=== PATIENT | female | born 1945 | race Caucasian/White ===

== ENCOUNTER 2021-03-28 17:55 | Inpatient (IN) | payer MEDICARE ==
[~2021-03-28] VITALS: Ht 165.1 cm; Wt 75.6 kg
--- NOTE | 2021-03-28 18:20 | NUR ---
Admission Note with Justification for Admission to [facility] Patient admitted to [facility] for protective oversight for emergency stabilization of acute psychiatric crisis. Pt admitted from: SNF Mode of arrival: Secure Transport Accompanied By: Secure Transport Precipitating behaviors that initiated intake and admission: verbally aggressive towards staff and is physically aggressive during cares and agitated. Description of failure of out patient attempts at stabilization in previous setting list behavior and medication trials: buspar; increased seroquel; more family visits; recent tx of UTI; care plan meetings Behaviors and assessment findings upon admission: pt presented as agitated. pt presented with a demanding demeanor; pt oriented to self and was sarcastic with some responses to staff. pt has an indwelling beckford catheter and states that she has had it for two years due to urine retention and was placed as a solution. a box lunch was ordered for pt and was given a cup of diet coke upon request. will continue to monitor. Plan: Admit for protective oversight for adjustment and stabilization of medications, behaviors and mood. Intense treatment regimen including groups, medication adjustments, therapy, consistent regimen for ADL's, self care, and sleep hygiene. Daily monitoring by Inpatient staff, Psychiatry, and Medical Physician.
[2021-03-28 19:24] VITALS: BP 136/68
[2021-03-28] MEDS ORDERED: METHYL SALICYLATE/MENTHOL TOPICAL OINTMENT 57GM TUBE. TP PRN (19:30)
[2021-03-28] MEDS ORDERED: MAGNESIUM HYDROXIDE 2,400 MG/30 ML ORAL.SUSP. PO PRN (19:30)
[2021-03-28] MEDS ORDERED: MAG HYDROX/AL HYDROX/SIMETH 30 ML ORAL.SUSP PO PRN (19:30)
[2021-03-28] MEDS ORDERED: DIVA125T28 PO (19:32)
[2021-03-28] MEDS ORDERED: QUET50TA5 PO (19:32)
[2021-03-28] MEDS ORDERED: INSU100I13 SQ (19:32)
[2021-03-28] MEDS ORDERED: OMEP20CA16 PO (19:32)
[2021-03-28] MEDS ORDERED: LORA0.5T21 PO (19:32)
[2021-03-28] MEDS ORDERED: QUET25TA5 PO (19:32)
[2021-03-28] MEDS ORDERED: ALEN70TA71 PO (19:32)
[2021-03-28] MEDS ORDERED: ATOR40TA59 PO (19:32)
[2021-03-28] MEDS ORDERED: ASCO500C PO (19:32)
[2021-03-28] MEDS ORDERED: LEVO125C3 PO (19:32)
[2021-03-28] MEDS ORDERED: SAXA5TAB PO (19:32)
[2021-03-28] MEDS ORDERED: BISM262O20 PO (19:32)
[2021-03-28] MEDS ORDERED: ACET325T21 PO (19:32)
[2021-03-28] MEDS ORDERED: BUSP10TA PO ×2 (19:32)
[2021-03-28] MEDS ORDERED: LACT1CAP2 PO (19:32)
[2021-03-28] MEDS ORDERED: GLIM2TAB7 PO (19:32)
[2021-03-28] MEDS ORDERED: MULT-238 PO (19:32)
[2021-03-28] MEDS ORDERED: AMLO10TA4 PO (19:32)
[2021-03-28] MEDS ORDERED: GLIM1TAB7 PO (19:32)
[2021-03-28] MEDS ORDERED: CARV12.547 PO (19:32)
[2021-03-28] MEDS ORDERED: LISI20TA18 PO (19:32)
[2021-03-28] MEDS ORDERED: BISMUTH SUBSALICYLATE 262 MG/15 ML ORAL.SUSP 236ML BOTTLE. PO PRN (20:00)
[2021-03-28 20:26] LABS: BASO # 0.1 x10^3/uL (0.0-0.2); BASO % 1 % (0-3); EOS # 0.6 x10^3/uL (0.0-0.7); EOS % 10 % (0-3); HEMOGLOBIN 10.7 g/dL (12.0-15.5); LYMPH # 0.7 x10^3/uL (1.0-4.8); LYMPH % 12 % (24-48); MEAN CORPUSCULAR HEMOGLOBIN 32 pg (25-35); MEAN CORPUSCULAR HGB CONC 34 g/dL (31-37); MEAN CORPUSCULAR VOLUME 96 fL (79-100); MONO # 0.5 x10^3/uL (0.0-1.1); MONO % 9 % (0-9); NEUT # 3.9 x10^3uL (1.8-7.7); NEUT % 68 % (31-73); PLATELET COUNT 209 x10^3/uL (140-400); RED BLOOD COUNT 3.34 x10^6/uL (3.50-5.40); RED CELL DISTRIBUTION WIDTH 13.8 % (11.5-14.5); WHITE BLOOD COUNT 5.7 x10^3/uL (4.0-11.0)
[2021-03-28 20:45] LABS: ALBUMIN 3.6 g/dL (3.4-5.0); ALBUMIN/GLOBULIN RATIO 0.9 (1.0-1.7); ALK PHOS 73 U/L (46-116); ALT (SGPT) 39 U/L (14-59); ANION GAP 10 (6-14); AST (SGOT) 25 U/L (15-37); BLOOD UREA NITROGEN 35 mg/dL (7-20); BUN/CREATININE RATIO 27 (6-20); CALCIUM 8.5 mg/dL (8.5-10.1); CARBON DIOXIDE 22 mmol/L (21-32); CHLORIDE 104 mmol/L (98-107); CREATININE 1.3 mg/dL (0.6-1.0); GFR 39.7; GLUCOSE 214 mg/dL (70-99); MAGNESIUM 2.7 mg/dL (1.8-2.4); POTASSIUM 4.9 mmol/L (3.5-5.1); SODIUM 136 mmol/L (136-145); TOTAL BILIRUBIN 0.3 mg/dL (0.2-1.0); TOTAL PROTEIN 7.4 g/dL (6.4-8.2)
[2021-03-28 20:51] LABS: VAL ACID 5 mcg/mL (50-100)
[2021-03-28] MEDS: LACTOBACILLUS RHAMNOSUS GG 1 CAPSULE. PO SCH (20:52)
[2021-03-28] MEDS: busPIRone 10 MG TABLET. PO SCH (20:53)
[2021-03-28] MEDS: ATORVASTATIN CALCIUM 20 MG TABLET PO SCH (20:53)
[2021-03-28] MEDS: LORazepam 0.5 MG TABLET PO SCH (20:53)
[2021-03-28] MEDS ORDERED: GLIMEPIRIDE 1 MG PO SCH (21:00)
[2021-03-28] MEDS: ACETAMINOPHEN 325 MG TABLET PO PRN (21:10)
[2021-03-28] MEDS ORDERED: INSU100C4 SQ (23:14)
[2021-03-28] MEDS ORDERED: DEXTROSE 50% 25 GM / 50ML DISP.SYRIN. IV PRN (23:15)
[2021-03-28 23:25] LABS: BILIRUBIN,URINE NEG (NEG); CLARITY,URINE HAZY; COLOR,URINE YELLOW; GLUCOSE,URINE 100 mg/dL (NEG); NITRITE,URINE NEG (NEG); UROBILINOGEN,URINE 0.2 mg/dL (0.2 mg/dL)
[2021-03-28 23:26] LABS: BACTERIA,URINE FEW /HPF (0-FEW)
--- NOTE | 2021-03-28 23:36 | NUR ---
Pt withdrawn to her room, sitting up in her w/c when approached. Pt irritable, snarky, and sarcastic with her responses to assessment questions. Pt resistive with skin assessment, questioning staff as to why it needed to be done, stating "I've never had to have this done before". Pt also delusional, she believes that she is here to better manage her diabetes and her diet. Pt appears to have little respect for nurses, resistive with my questions and then answering with sarcasm and a condescending tone. She then stated, "I have a long list of nurses that I would like to kick in the ass". Pt also became offended when I asked when her last bowel movement was, stating "I think that is just the rudest question to ask somebody. I hate that question". I explained to her the reasoning for asking the question but she was not receptive to education. Pt cooperative with assessment although she complained the entire time. Pt compliant with medications administered whole but insisted that I put them in her mouth for her while she held the cup of water. Later, when she requested PRN Tylenol for pain in her Right 5th toe amputation site, she insisted that I put the pills in her hand.
--- NOTE | 2021-03-29 04:35 | EKG ---
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
[2021-03-29] MEDS: LEVOTHYROXINE 125 MCG TABLET PO SCH (05:51)
[2021-03-29 06:11] VITALS: BP 133/76
[2021-03-29] MEDS ORDERED: INSULIN LISPRO 300 UNITS/3 ML VIAL. SQ SCH (08:00)
[2021-03-29] MEDS: QUEtiapine 50 MG TABLET. PO SCH (08:26)
[2021-03-29] MEDS: QUEtiapine 25 MG TABLET. PO SCH (08:26)
[2021-03-29] MEDS: LACTOBACILLUS RHAMNOSUS GG 1 CAPSULE. PO SCH ×2 (08:27→21:00)
[2021-03-29] MEDS: LINAGLIPTIN 5 MG TABLET PO SCH (08:27)
[2021-03-29] MEDS: ASCORBIC ACID 500 MG TABLET PO SCH (08:27)
[2021-03-29] MEDS: LORazepam 0.5 MG TABLET PO SCH ×2 (08:27→21:01)
[2021-03-29] MEDS: LISINOPRIL 20 MG TABLET PO SCH (08:27)
[2021-03-29] MEDS: DIVALPROEX SODIUM 125 MG TABLET.DR. PO SCH (08:27)
[2021-03-29] MEDS: amLODIPine BESYLATE 10 MG TABLET PO SCH (08:27)
[2021-03-29] MEDS: MULTIVITAMIN with MINERAL TABLET. PO SCH (08:27)
[2021-03-29] MEDS: busPIRone 10 MG TABLET. PO SCH (08:27)
[2021-03-29] MEDS: GLIMEPIRIDE 2 MG TABLET PO SCH ×2 (08:28→17:00)
[2021-03-29] MEDS: PANTOPRAZOLE 40 MG TABLET. PO SCH (08:29)
[2021-03-29] MEDS: CARVEDILOL 12.5 MG TABLET PO SCH ×2 (08:29→17:00)
[2021-03-29] MEDS: INSULIN LISPRO 300 UNITS/3 ML VIAL. SQ SCH ×2 (08:45→17:00)
[2021-03-29] MEDS: INSULIN GLARGINE SYRINGE. SQ SCH (08:46)
--- NOTE | 2021-03-29 12:45 | NUR ---
ACTIVITY THERAPY ASSESSMENT completed based on notes,observation and interview. Pt was sitting in her room in her wheelchair. Pt was willing to answer assessment questions. AT educated pt about activities offered on [facility] and asked her what kind of activities she enjoys. Pt said that her eye sight is bad so she does not engage in anything. AT asked if she enjoyed listening to music and she didn't respond with a clear answer. Pt asked if she was seeing things or if there was rack on the wall. AT said that there was no rack on the wall and pt then called herself crazy. Pt was able to answer most orientation questions but did not know the hospital name. Pt said that she thought she was coming here to learn about her diabetes but said she was informed it was about her attitude. Pt proceeded to say that some of the residents are a bit catty. Pt said that she was for 49 years until her which she said was 35 years ago. Pt reports that she has one daughter and one son that she is in good contact with. Pt said that she enjoys sitting on the patio and socializing with her family. AT asked pt if she reports and stress and she is stressed because she is here. Pt said that she does not have anything here. Pt mentioned watching movies so AT offered a pina for pt to watch movie on. Pt questioned the screen size the movie would be playing on and expressed some irritation. Pt listed a few movies for AT to look for. Pt says that she cameron with stress by telling herself not to be stressed. Per notes pt can be demanding and condescending towards staff. Initial goal aimed to increase socialization and enagagement. Pt will participate in at least five individual or group Activity Therapy sessions per week. Addendum: 04/11/21 at 1124 by ROBERTA GENAO ACT Goal changed 04/11:Pt will participate in at least five individual or group Activity Therapy sessions before discharge.
[2021-03-29] MEDS: ACETAMINOPHEN 325 MG TABLET PO PRN (14:30)
[2021-03-29 15:39] LABS: THYROID STIM HORMONE (TSH) 0.069 uIU/mL (0.358-3.740)
[2021-03-29 15:53] VITALS: BP 138/89
--- NOTE | 2021-03-29 16:30 | NUR ---
Wound Care Wound Type/Assessment: Pt seen for wound care consult re: her R 5th toe amputation site. Pt assessed, pt hesitant to allow assessment, stating she did not have a wound. 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 Wound bed is red, superficial, no redness or fluctuance noted. Treatment Recommendations/Plan: Recommend painting eschar with betadine and placing Iodoflex mahogany over blister, and covering areas with an Aquacel foam, change every 2-3 days. Also recommend Heelmedix boot for off-loading. Education provided: POC discussed with RADHA Martinez. Offloading surface/device: Heelmedix boot to offload, as pt scoots in her w/c. Recommended Referrals/Tests: n/a Discharge Recommendations for dressings: same as treatment plan above *Pt declined to allow this RN to complete head to toe skin assessment, asking me to get out of her room. Will attempt again at next assessment, next week.
--- NOTE | 2021-03-29 17:29 | NUR ---
[facility] [place] Note; Luisito in particular about her cares and meals. She refused to eat most of her breakfast, stating that she is diabetic and doesn't eat toast, hashbrowns oatmeal or juice and does not like sausage or eggs. She did eat her yogurt and enjoyed lunch. We needed to encourage her to propel herself in her wheelchair which she resisted stating her facility pushes her everywhere. I gave her the med cup and asked her to take her am meds. She wanted me to place them in her mouth then give her sips of water. I explained that we encourage patients to do as much as they can. I had to repeatedly encourage her to take her meds herself after which she huffed then took them herself. I praised her. She likes to go to back to bed between meals saying she is tired. We kept her up for several hours after lunch to improve her strength then laid her down for a nap. We attempted to get her up for dinner during which she became very sarcastic and dismissive stating she will eat later. I told her that the meal trays will be sent back to the kitchen and not kept for her for later but she continued to refuse to get up. She was rude and dismissive to the POLICY WRITER when she went in to empty her beckford cath Addendum: 03/29/21 at 1747 by KAMRYN GALVAN RN She also refused to take her meds due at 1700 stating her blood pressure is fine and that she doesn't need her diabetes medications because she is not going to eat dinner.
[2021-03-29] MEDS: ATORVASTATIN CALCIUM 20 MG TABLET PO SCH (21:01)
[2021-03-29 21:06] LABS: THYROXINE 8.9 ug/dL (4.5-12.0)
--- NOTE | 2021-03-29 22:02 | PDOC ---
Exam Note: Hayden Note: Please also refer to the separate dictated note~for this date of service dictated separately.~Patient seen individually. Discussed the patient with Nursing staff reviewed the chart.~Reviewed interim history and current functioning. Reviewed vital signs,~Labs/ Radiology~and current medications noted below. Continue current treatment with the changes noted in the dictated addendum note Assessment: Vital Signs/I&O: Vital Signs Date Time Temp Pulse Resp B/P (MAP) Pulse Ox O2 Delivery O2 Flow Rate FiO2 03/29/21 17:00 61 138/89 03/29/21 15:53 97.3 19 99 03/28/21 19:24 Room Air I & O 03/28/21 03/28/21 03/29/21 15:00 23:00 07:00 Intake Total 300 ml Output Total 300 ml Balance 0 ml Labs: Laboratory Tests Test 03/28/21 22:23 03/29/21 07:29 03/29/21 11:44 03/29/21 16:54 Urine Collection Type Unknown Urine Color Yellow Urine Clarity Hazy Urine pH 6.0 Urine Specific [place] 1.020 Urine Protein 100 mg/dl (NEG-TRACE) Urine Glucose (UA) 100 mg/dL (NEG) Urine Ketones (Stick) Neg mg/dL (NEG) Urine Blood Trace (NEG) Urine Nitrite Neg (NEG) Urine Bilirubin Neg (NEG) Urine Urobilinogen Dipstick 0.2 mg/dL (0.2 mg/dL) Urine Leukocyte Esterase Small (NEG) Urine RBC 1-2 /HPF (0-2) Urine WBC 11-20 /HPF (0-4) Urine Squamous Epithelial Cells None /LPF Urine Bacteria Few /HPF (0-FEW) Glucose (Fingerstick) 164 mg/dL (70-99) H 116 mg/dL (70-99) H 121 mg/dL (70-99) H Test 03/29/21 19:28 Glucose (Fingerstick) 95 mg/dL (70-99) Current Medications: Meds: Laboratory Tests Test 03/28/21 22:23 03/29/21 07:29 03/29/21 11:44 03/29/21 16:54 Urine Collection Type Unknown Urine Color Yellow Urine Clarity Hazy Urine pH 6.0 Urine Specific [place] 1.020 Urine Protein 100 mg/dl Urine Glucose (UA) 100 mg/dL Urine Ketones (Stick) Neg mg/dL Urine Blood Trace Urine Nitrite Neg Urine Bilirubin Neg Urine Urobilinogen Dipstick 0.2 mg/dL Urine Leukocyte Esterase Small Urine RBC 1-2 /HPF Urine WBC 11-20 /HPF Urine Squamous Epithelial Cells None /LPF Urine Bacteria Few /HPF Glucose (Fingerstick) 164 mg/dL 116 mg/dL 121 mg/dL Test 03/29/21 19:28 Glucose (Fingerstick) 95 mg/dL Current Medications Medications (Trade) Dose Ordered Sig/Lilly Route PRN Reason Start Time Stop Time Status Last Admin Dose Admin Acetaminophen (Tylenol) 650 mg PRN Q6HRS PRN PO MILD PAIN / TEMP > 100.3'F 03/28/21 19:30 03/29/21 14:30 Multi-Ingredient Ointment (Analgesic [place]) 1 billy PRN QID PRN TP MUSCLE PAIN 03/28/21 19:30 Al Hydroxide/Mg Hydroxide (Mylanta Plus Xs) 15 ml PRN AFTMEALHC PRN PO DYSPEPSIA 03/28/21 19:30 Magnesium Hydroxide (Milk Of Magnesia) 2,400 mg PRN QHS PRN PO CONSTIPATION 03/28/21 19:30 Amlodipine Besylate (Norvasc) 10 mg DAILY PO 03/29/21 09:00 03/29/21 08:27 Bismuth Subsalicylate (Pepto-Bismol) 262 mg PRN Q6HRS PRN PO DYSPEPSIA 03/28/21 20:00 Carvedilol (Coreg) 12.5 mg BIDWMEALS PO 03/29/21 08:00 03/29/21 08:29 Glimepiride (Amaryl) 3 mg BIDWMEALS PO 03/29/21 08:00 03/29/21 08:28 Lisinopril (Prinivil) 20 mg DAILY PO 03/29/21 09:00 03/29/21 08:27 Non-Formulary Medication (Alendronate Sodium ) 70 mg WEEKLY PO 04/04/21 09:00 03/28/21 23:48 DC Ascorbic Acid (Vitamin C) 500 mg DAILY PO 03/29/21 09:00 03/29/21 08:27 Atorvastatin Calcium (Lipitor) 40 mg QHS PO 03/28/21 21:00 03/29/21 21:01 Non-Formulary Medication (Glimepiride ) 1 mg BID PO 03/28/21 21:00 UNV Insulin Glargine (Lantus Syringe) 20 unit DAILYWBKFT SQ 03/29/21 08:00 03/29/21 08:46 Lactobacillus Rhamnosus (Culturelle) 1 cap BID PO 03/28/21 21:00 03/29/21 21:00 Levothyroxine Sodium (Synthroid) 125 mcg DAILY06 PO 03/29/21 06:00 03/29/21 05:51 Multivitamins/ Calcium (Thera-M Plus) 1 tab DAILY PO 03/29/21 09:00 03/29/21 08:27 Pantoprazole Sodium (Protonix) 40 mg DAILY PO 03/29/21 09:00 03/29/21 08:29 Linagliptin (Tradjenta) 5 mg DAILY PO 03/29/21 09:00 03/29/21 08:27 Buspirone HCl (Buspar) 10 mg BID PO 03/28/21 21:00 03/29/21 20:13 DC 03/29/21 08:27 Divalproex Sodium (Depakote) 125 mg DAILY PO 03/29/21 09:00 03/29/21 08:27 Lorazepam (Ativan) 0.5 mg BID PO 03/28/21 21:00 03/29/21 21:01 Quetiapine Fumarate (SEROquel) 25 mg DAILY PO 03/29/21 09:00 03/29/21 08:26 Quetiapine Fumarate (SEROquel) 50 mg DAILY PO 03/29/21 09:00 03/29/21 08:26 Insulin Human Lispro (HumaLOG) 0-7 UNITS TIDWMEALS SQ 03/29/21 08:00 03/28/21 23:36 DC Dextrose (Dextrose 50%-Water Syringe) 12.5 gm PRN Q15MIN PRN IV SEE COMMENTS 03/28/21 23:15 Insulin Human Lispro (HumaLOG) 0-7 UNITS BIDWMEALS SQ 03/29/21 09:00 03/29/21 08:45 Alendronate Sodium (Fosamax) 70 mg QWE PO 04/03/21 16:00 Sertraline HCl (Zoloft) 25 mg DAILY PO 03/30/21 09:00 Current Medications Medications (Trade) Dose Ordered Sig/Lilly Route PRN Reason Start Time Stop Time Status Last Admin Dose Admin Amlodipine Besylate (Norvasc) 10 mg DAILY PO 03/29/21 09:00 03/29/21 08:27 Carvedilol (Coreg) 12.5 mg BIDWMEALS PO 03/29/21 08:00 03/29/21 08:29 Glimepiride (Amaryl) 3 mg BIDWMEALS PO 03/29/21 08:00 03/29/21 08:28 Lisinopril (Prinivil) 20 mg DAILY PO 03/29/21 09:00 03/29/21 08:27 Ascorbic Acid (Vitamin C) 500 mg DAILY PO 03/29/21 09:00 03/29/21 08:27 Insulin Glargine (Lantus Syringe) 20 unit DAILYWBKFT SQ 03/29/21 08:00 03/29/21 08:46 Levothyroxine Sodium (Synthroid) 125 mcg DAILY06 PO 03/29/21 06:00 03/29/21 05:51 Multivitamins/ Calcium (Thera-M Plus) 1 tab DAILY PO 03/29/21 09:00 03/29/21 08:27 Pantoprazole Sodium (Protonix) 40 mg DAILY PO 03/29/21 09:00 03/29/21 08:29 Linagliptin (Tradjenta) 5 mg DAILY PO 03/29/21 09:00 03/29/21 08:27 Divalproex Sodium (Depakote) 125 mg DAILY PO 03/29/21 09:00 03/29/21 08:27 Quetiapine Fumarate (SEROquel) 25 mg DAILY PO 03/29/21 09:00 03/29/21 08:26 Quetiapine Fumarate (SEROquel) 50 mg DAILY PO 03/29/21 09:00 03/29/21 08:26 Insulin Human Lispro (HumaLOG) 0-7 UNITS BIDWMEALS SQ 03/29/21 09:00 03/29/21 08:45 I have reviewed the current psychotropics carefully including drug interactions. Risk benefit ratio favors no change other than as noted in my dictated progress note. VISHAL SWAIN MD Mar 29, 2021 22:02
--- NOTE | 2021-03-29 23:23 | NUR ---
Pt withdrawn to her room, lying in bed when approached. Pt irritable, acting helpless. Pt wanting me to put her medications in her mouth 1-2 at a time but I encouraged her to put her own medications in her own mouth. Pt unable to fathom why I couldn't "just do it for me like my other nurse does". Pt educated to the fact that while here, she will be encouraged to do as much for herself as she is physically capable of doing. Pt scoffed at the suggestion but did take her medications with little assist.
[2021-03-30 01:21] LABS: HEMOGLOBIN A1C 7.7 % (4.8-5.6)
[2021-03-30] MEDS: LEVOTHYROXINE 125 MCG TABLET PO SCH (05:24)
[2021-03-30] MEDS: ACETAMINOPHEN 325 MG TABLET PO PRN (05:28)
[2021-03-30 05:59] VITALS: BP 139/77
[2021-03-30] MEDS: INSULIN LISPRO 300 UNITS/3 ML VIAL. SQ SCH ×2 (08:00→17:00)
[2021-03-30] MEDS: DIVALPROEX SODIUM 125 MG TABLET.DR. PO SCH (09:09)
[2021-03-30] MEDS: LINAGLIPTIN 5 MG TABLET PO SCH (09:09)
[2021-03-30] MEDS: GLIMEPIRIDE 2 MG TABLET PO SCH ×2 (09:09→17:00)
[2021-03-30] MEDS: QUEtiapine 25 MG TABLET. PO SCH (09:10)
[2021-03-30] MEDS: LISINOPRIL 20 MG TABLET PO SCH (09:10)
[2021-03-30] MEDS: QUEtiapine 50 MG TABLET. PO SCH (09:10)
[2021-03-30] MEDS: LACTOBACILLUS RHAMNOSUS GG 1 CAPSULE. PO SCH ×2 (09:10→20:39)
[2021-03-30] MEDS: MULTIVITAMIN with MINERAL TABLET. PO SCH (09:10)
[2021-03-30] MEDS: PANTOPRAZOLE 40 MG TABLET. PO SCH (09:10)
[2021-03-30] MEDS: CARVEDILOL 12.5 MG TABLET PO SCH ×2 (09:11→17:00)
[2021-03-30] MEDS: ASCORBIC ACID 500 MG TABLET PO SCH (09:11)
[2021-03-30] MEDS: amLODIPine BESYLATE 10 MG TABLET PO SCH (09:13)
[2021-03-30] MEDS: INSULIN GLARGINE SYRINGE. SQ SCH (09:14)
[2021-03-30] MEDS: SERTRALINE 25 MG TABLET. PO SCH (09:15)
[2021-03-30] MEDS: LORazepam 0.5 MG TABLET PO SCH ×2 (09:15→20:39)
[2021-03-30 15:43] VITALS: BP 107/50
--- NOTE | 2021-03-30 18:38 | NUR ---
Pt up for breakfast in wc. Repeatedly asked to lie down. Encouraged pt to stay up till after lunch. When staff attempting to get lunch BS, pt was still angry at staying up and scratched the staff member. Pt redirected. Laid down after lunch and refused to get up for supper. Has been pleasant and compliant rest of day.
[2021-03-30] MEDS: ATORVASTATIN CALCIUM 20 MG TABLET PO SCH (20:39)
--- NOTE | 2021-03-30 20:58 | HP ---
ADMIT DATE: 03/28/2021 PSYCHIATRIC ADMISSION HISTORY/EVALUATION This is a late entry, date of service 03/28/2021, covers the elements not covered in my initial note, 03/28/2021. I met with the patient on the evening of 03/28/2021 for this evaluation via Tele-health services due to the COVID-19 pandemic and my own ill health precluding [id number] interaction with the patient. The patient was seen individually, discussed with nursing staff, reviewed the chart. CHIEF COMPLAINT: "I need help with things." HISTORY OF PRESENT ILLNESS: Reportedly, the patient has been reasonably cognitively intact. Recently getting more depressed, anxious, irritable. She has been verbally aggressive with staff physically aggressive during cares, agitated, has significant mood swings, and sleep and appetite changes. The patient has failed outpatient psychiatric interventions. Reportedly, the patient has been residing at [facility] for some time. Recently, she has been more irritable, demanding, threatening and aggressive with significant mood swings, being depressed and anxious. She has failed outpatient psychiatric interventions. Behaviors are unmanageable at the facility resulting in this referral. PAST PSYCHIATRIC HISTORY: As above. 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 ACCU-CHEKS: Before meals and at bedtime. ALLERGIES: Negative. CODE STATUS: Full code. DIET: Diabetic. No added salt. MEDICATIONS: Takes it whole. Ambulates in wheelchair. UA on 03/28/2021 was culture pending. CURRENT PSYCHOTROPICS: Depakote delayed release 125 mg daily, BuSpar 10 mg b.i.d., Ativan 0.5 mg b.i.d., Seroquel 75 mg daily. FAMILY HISTORY: Noncontributory. SOCIAL HISTORY: No alcohol, drug abuse, physical, sexual or elder abuse history is noted. She is not known to be a perpetrator. REACTION TO HOSPITALIZATION: The patient accepting of it. REVIEW OF SYSTEMS: No CV, , pulmonary, eye, ENT system symptoms on review. MENTAL STATUS EXAM: The patient is oriented to herself, situation. Speech is coherent. Abstraction fair. Computation impaired. Language function intact. Attention span short. Mood is depressed, anxious, irritable, labile in her affect. No active suicidal or homicidal ideation. She is quite distractible. IMPRESSION: Major depressive disorder, recurrent; anxiety disorder, unspecified; impulse control disorder, unspecified; rest as above. PLAN: Admit to Geropsychiatry Unit, [facility]. I will see the patient individually. Medical followup with Dr. Jolly/Dr. Avina. Observe baseline. Adjust psychotropics as clinically indicated. DISPOSITION PLANS: Transition back to halfway when stable. JOSÉ ANTONIO DR: Sridhar TID: [id number]
--- NOTE | 2021-03-30 22:06 | PDOC ---
Exam Note: Hayden Note: Late entry for 03/28/21. Please also refer to the separate dictated note~for this date of service dictated separately.~Patient seen individually. Discussed the patient with Nursing staff reviewed the chart.~Reviewed interim history and current functioning. Reviewed vital signs,~Labs/ Radiology~and current medicat ions noted below. Continue current treatment with the changes noted in the dictated addendum note Assessment: Vital Signs/I&O: Vital Signs Date Time Temp Pulse Resp B/P (MAP) Pulse Ox O2 Delivery O2 Flow Rate FiO2 03/30/21 17:00 72 107/50 03/30/21 15:43 97.5 16 98 Room Air I & O 03/29/21 03/29/21 03/30/21 15:00 23:00 07:00 Intake Total 240 ml 360 ml Output Total 350 ml 875 ml 700 ml Balance -110 ml -515 ml -700 ml Labs: Laboratory Tests Test 03/30/21 07:39 03/30/21 08:00 03/30/21 08:29 03/30/21 10:11 Glucose (Fingerstick) 41 mg/dL (70-99) L 42 mg/dL (70-99) L 63 mg/dL (70-99) L 142 mg/dL (70-99) H Test 03/30/21 11:49 03/30/21 16:57 03/30/21 19:41 Glucose (Fingerstick) 198 mg/dL (70-99) H 299 mg/dL (70-99) H 112 mg/dL (70-99) H Current Medications: Meds: Current Medications Medications (Trade) Dose Ordered Sig/Lilly Route PRN Reason Start Time Stop Time Status Last Admin Dose Admin Sertraline HCl (Zoloft) 25 mg DAILY PO 03/30/21 09:00 03/30/21 09:15 I have reviewed the current psychotropics carefully including drug interactions. Risk benefit ratio favors no change other than as noted in my dictated progress note. Diagnosis: Problems: (1) Major depressive disorder, recurrent episode (2) Anxiety disorder, unspecified (3) Impulse control disorder, unspecified VISHAL SWAIN MD Mar 30, 2021 22:06
--- NOTE | 2021-03-30 22:07 | PDOC ---
Exam Note: Hayden Note: Please also refer to the separate dictated note~for this date of service dictated separately.~Patient seen individually. Discussed the patient with Nursing staff reviewed the chart.~Reviewed interim history and current functioning. Reviewed vital signs,~Labs/ Radiology~and current medications noted below. Continue current treatment with the changes noted in the dictated addendum note Assessment: Vital Signs/I&O: Vital Signs Date Time Temp Pulse Resp B/P (MAP) Pulse Ox O2 Delivery O2 Flow Rate FiO2 03/30/21 17:00 72 107/50 03/30/21 15:43 97.5 16 98 Room Air I & O 03/29/21 03/29/21 03/30/21 15:00 23:00 07:00 Intake Total 240 ml 360 ml Output Total 350 ml 875 ml 700 ml Balance -110 ml -515 ml -700 ml Labs: Laboratory Tests Test 03/30/21 07:39 03/30/21 08:00 03/30/21 08:29 03/30/21 10:11 Glucose (Fingerstick) 41 mg/dL (70-99) L 42 mg/dL (70-99) L 63 mg/dL (70-99) L 142 mg/dL (70-99) H Test 03/30/21 11:49 03/30/21 16:57 03/30/21 19:41 Glucose (Fingerstick) 198 mg/dL (70-99) H 299 mg/dL (70-99) H 112 mg/dL (70-99) H Current Medications: Meds: Laboratory Tests Test 03/30/21 07:39 03/30/21 08:00 03/30/21 08:29 03/30/21 10:11 Glucose (Fingerstick) 41 mg/dL 42 mg/dL 63 mg/dL 142 mg/dL Test 03/30/21 11:49 03/30/21 16:57 03/30/21 19:41 Glucose (Fingerstick) 198 mg/dL 299 mg/dL 112 mg/dL Current Medications Medications (Trade) Dose Ordered Sig/Lilly Route PRN Reason Start Time Stop Time Status Last Admin Dose Admin Acetaminophen (Tylenol) 650 mg PRN Q6HRS PRN PO MILD PAIN / TEMP > 100.3'F 03/28/21 19:30 03/30/21 05:28 Multi-Ingredient Ointment (Analgesic [place]) 1 billy PRN QID PRN TP MUSCLE PAIN 03/28/21 19:30 Al Hydroxide/Mg Hydroxide (Mylanta Plus Xs) 15 ml PRN AFTMEALHC PRN PO 2ND CHOICE DYSPEPSIA 03/28/21 19:30 Magnesium Hydroxide (Milk Of Magnesia) 2,400 mg PRN QHS PRN PO CONSTIPATION 03/28/21 19:30 Amlodipine Besylate (Norvasc) 10 mg DAILY PO 03/29/21 09:00 03/30/21 09:13 Bismuth Subsalicylate (Pepto-Bismol) 262 mg PRN Q6HRS PRN PO 1ST CHOICE DYSPEPSIA 03/28/21 20:00 Carvedilol (Coreg) 12.5 mg BIDWMEALS PO 03/29/21 08:00 03/30/21 09:11 Glimepiride (Amaryl) 3 mg BIDWMEALS PO 03/29/21 08:00 03/30/21 17:00 Lisinopril (Prinivil) 20 mg DAILY PO 03/29/21 09:00 03/30/21 09:10 Non-Formulary Medication (Alendronate Sodium ) 70 mg WEEKLY PO 04/04/21 09:00 03/28/21 23:48 DC Ascorbic Acid (Vitamin C) 500 mg DAILY PO 03/29/21 09:00 03/30/21 09:11 Atorvastatin Calcium (Lipitor) 40 mg QHS PO 03/28/21 21:00 03/30/21 20:39 Non-Formulary Medication (Glimepiride ) 1 mg BID PO 03/28/21 21:00 UNV Insulin Glargine (Lantus Syringe) 20 unit DAILYWBKFT SQ 03/29/21 08:00 03/30/21 09:14 Lactobacillus Rhamnosus (Culturelle) 1 cap BID PO 03/28/21 21:00 03/30/21 20:39 Levothyroxine Sodium (Synthroid) 125 mcg DAILY06 PO 03/29/21 06:00 03/30/21 05:24 Multivitamins/ Calcium (Thera-M Plus) 1 tab DAILY PO 03/29/21 09:00 03/30/21 09:10 Pantoprazole Sodium (Protonix) 40 mg DAILY PO 03/29/21 09:00 03/30/21 09:10 Linagliptin (Tradjenta) 5 mg DAILY PO 03/29/21 09:00 03/30/21 09:09 Buspirone HCl (Buspar) 10 mg BID PO 03/28/21 21:00 03/29/21 20:13 DC 03/29/21 08:27 Divalproex Sodium (Depakote) 125 mg DAILY PO 03/29/21 09:00 03/30/21 09:09 Lorazepam (Ativan) 0.5 mg BID PO 03/28/21 21:00 03/30/21 20:39 Quetiapine Fumarate (SEROquel) 25 mg DAILY PO 03/29/21 09:00 03/30/21 09:10 Quetiapine Fumarate (SEROquel) 50 mg DAILY PO 03/29/21 09:00 03/30/21 09:10 Insulin Human Lispro (HumaLOG) 0-7 UNITS TIDWMEALS SQ 03/29/21 08:00 03/28/21 23:36 DC Dextrose (Dextrose 50%-Water Syringe) 12.5 gm PRN Q15MIN PRN IV SEE COMMENTS 03/28/21 23:15 Insulin Human Lispro (HumaLOG) 0-7 UNITS BIDWMEALS SQ 03/29/21 09:00 03/30/21 17:00 Alendronate Sodium (Fosamax) 70 mg QWE PO 04/03/21 16:00 Sertraline HCl (Zoloft) 25 mg DAILY PO 03/30/21 09:00 03/30/21 09:15 Current Medications Medications (Trade) Dose Ordered Sig/Lilly Route PRN Reason Start Time Stop Time Status Last Admin Dose Admin Sertraline HCl (Zoloft) 25 mg DAILY PO 03/30/21 09:00 03/30/21 09:15 I have reviewed the current psychotropics carefully including drug interactions. Risk benefit ratio favors no change other than as noted in my dictated progress note. Diagnosis: Problems: (1) Major depressive disorder, recurrent episode (2) Impulse control disorder, unspecified (3) Anxiety disorder, unspecified VISHAL SWAIN MD Mar 30, 2021 22:06
--- NOTE | 2021-03-30 23:23 | NUR ---
Pt withdrawn to her room, lying in bed when approached. Pt calm with a flat affect. Pt makes very little effort to assist staff with cares, acting helpless. Pt has been cooperative with assessment and compliant with medications administered whole, 1-2 at a time. Pt initially resistive with me placing them in her hand to take but did so with encouragement. Pt compliant with HS snack of yogurt as well. No verbal or physical aggression noted thus far this shift.
--- NOTE | 2021-03-30 23:47 | CONS ---
DATE OF CONSULTATION: 03/30/2021 REASON FOR CONSULTATION: Medical management. HISTORY OF PRESENT ILLNESS: The patient is a 76-year-old female patient, a resident at [facility], who was [facility] on account of being verbally aggressive towards staff and was physically aggressive during cares and very agitated, all this in a background of anxiety and unspecified psychosis. On questioning her, she basically denied any complaint. PAST MEDICAL HISTORY: Significant for type 2 diabetes mellitus with diabetic foot ulcer, status post right fifth toe amputation, hypothyroidism, hyperlipidemia, breast cancer, hypertension, osteoporosis, heart failure, obstructive and reflux uropathy, gastroesophageal reflux disease. PAST SURGICAL HISTORY: Significant for right fifth toe amputation and right mastectomy. PAST PSYCHIATRIC HISTORY: Significant for anxiety and psychosis. ALLERGIES: She has no known drug allergies. MEDICATIONS: She is currently on the following medications: She is on atorvastatin calcium 40 mg at bedtime, carvedilol 12.5 mg twice a day, amlodipine 10 mg once a day, lisinopril 20 mg daily, acetaminophen 650 mg every 6 hours, divalproex 125 mg daily, quetiapine fumarate 50 mg p.o. daily, quetiapine fumarate 25 mg twice a day, lorazepam 0.5 mg twice a day, buspirone 10 mg twice a day, Pepto-Bismol 262 mg every 6 hours as needed, lactobacillus acidophilus 1 capsule twice a day, omeprazole 20 mg daily, Onglyza 5 mg daily. She is on NovoLog insulin 0-10 units subcutaneously before meals t.i.d., Lantus insulin 20 units subcutaneously daily. She is on glimepiride 2 mg twice a day, levothyroxine sodium 125 mcg once a day, ascorbic acid 500 mg daily, multivitamin with mineral 1 tablet once a day, alendronate sodium 70 mg p.o. weekly. FAMILY HISTORY: Noncontributory. SOCIAL HISTORY: She is , has 2 children. Currently, a resident at [facility]. She does not smoke or drink alcohol or use any recreational drugs. 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 REVIEW OF SYSTEMS: As per history of present illness. PHYSICAL EXAMINATION: GENERAL: When I examined her, she looked pale, not jaundiced or cyanosed, no lymphadenopathy, no thyromegaly, no jugular venous distention. No lower limb edema. VITAL SIGNS: Her heart rate was 72, blood pressure was 107/50, temperature 97.5, respiratory rate was 16, and oxygen saturation was 98%. HEAD, EYES, EARS, NOSE AND THROAT: Showed she is normocephalic, atraumatic. NECK: Supple. HEART: Normal first and second heart sounds. No gallop or murmur. CHEST: Clear to auscultation. No crepitation or rhonchi. ABDOMEN: Distended, soft, nontender. NEUROLOGIC: She is blind in her right eye, but all other cranial nerves are intact. She moves all her extremities without difficulty. She is mostly wheelchair bound. She has neurogenic bladder requiring indwelling Alexander catheter. LABORATORY DATA: Her labs work showed a white cell count of 5700, hemoglobin 11, hematocrit 32, MCV 96, and platelet count 209,000 with a manual differential showed 68% polymorphs, 12% lymphocytes, and 9% monocytes. Her chemistry showed that her serum sodium was 136, potassium 4.9, chloride 104, bicarbonate 22, anion gap of 10, BUN 35, creatinine 1.3. Estimated GFR was 39 mL per minute. Her glucose 214. Her calcium was 8.5, magnesium 2.7. Total bilirubin, AST, ALT, alkaline phosphatase were normal. Total protein 7.4, albumin 3.6. Her hemoglobin A1c was 7.7. Serum iron, TIBC, and iron saturation are all consistent with replete iron stores. Her serum triglycerides was 86, total cholesterol 103, LDL cholesterol 45, VLDL was 17, HDL cholesterol 41, the ratio was 2. Her serum vitamin B12 was 1182 picograms per mL, 25-hydroxy vitamin D is low at 25.9. TSH is extremely low at 0.069; however, her total T4 was 8.9, total T3 was 70. Her D-dimer was high at 1.8. Urinalysis showed the urine was yellow, hazy with a pH of 6, specific gravity of 1.020. There was large amount of protein, small amount of glucose, negative ketones, trace of blood, negative for nitrite. There is a small amount of leukocyte esterase, 1-2 rbc's, 11-20 wbc's and few bacteria. Her valproic acid is very low at 5 mcg per mL and her treponema pallidum antibodies are nonreactive. ASSESSMENT AND PLAN: All in all, the patient seems to be medically stable. Her vital signs are all within normal range. Her lab work showed that she has what seemed to be normochromic, normocytic anemia. She has chronic kidney disease, hypovitaminosis D. She has probably compensated. Although the TSH is very low, her total T4 was normal. She probably has sick euthyroid syndrome. Her D-dimer was elevated at 1.8. So, all in all, the patient seems to be stable. I will start the cholecalciferol for vitamin D deficiency. Meanwhile, we will continue with all her current medication. I will review her labs that are still pending and make any necessary recommendation. Thank you, Dr. Addison, for allowing me to participate in the care of this patient. FERDINAND DR: Kartik TID: [id number]
[2021-03-31] MEDS: LEVOTHYROXINE 125 MCG TABLET PO SCH (05:09)
[2021-03-31 06:11] VITALS: BP 129/72
[2021-03-31] MEDS: GLIMEPIRIDE 2 MG TABLET PO SCH (08:00)
[2021-03-31] MEDS: INSULIN GLARGINE SYRINGE. SQ SCH (08:00)
[2021-03-31] MEDS: INSULIN LISPRO 300 UNITS/3 ML VIAL. SQ SCH ×2 (08:00→17:14)
[2021-03-31] MEDS: QUEtiapine 50 MG TABLET. PO SCH (08:30)
[2021-03-31] MEDS: LISINOPRIL 20 MG TABLET PO SCH (08:30)
[2021-03-31] MEDS: SERTRALINE 25 MG TABLET. PO SCH (08:30)
[2021-03-31] MEDS: PANTOPRAZOLE 40 MG TABLET. PO SCH (08:31)
[2021-03-31] MEDS: MULTIVITAMIN with MINERAL TABLET. PO SCH (08:31)
[2021-03-31] MEDS: DIVALPROEX SODIUM 125 MG TABLET.DR. PO SCH (08:31)
[2021-03-31] MEDS: LACTOBACILLUS RHAMNOSUS GG 1 CAPSULE. PO SCH ×2 (08:31→21:45)
[2021-03-31] MEDS: QUEtiapine 25 MG TABLET. PO SCH (08:31)
[2021-03-31] MEDS: CARVEDILOL 12.5 MG TABLET PO SCH ×2 (08:31→17:15)
[2021-03-31] MEDS: amLODIPine BESYLATE 10 MG TABLET PO SCH (08:31)
[2021-03-31] MEDS: ASCORBIC ACID 500 MG TABLET PO SCH (08:31)
[2021-03-31] MEDS: LINAGLIPTIN 5 MG TABLET PO SCH (08:37)
[2021-03-31] MEDS: LORazepam 0.5 MG TABLET PO SCH ×2 (08:39→21:46)
--- NOTE | 2021-03-31 15:31 | NUR ---
Nursing note: Patient required oral & IV glucose for blood sugar of 21. When rechecked it was 68, then 91. Before lunch it was 266. She was in hallway for morning medications & assessment, meds taken whole. Patient is A/O to self only. Patient is demanding and frequently requesting misc items. She is currently in the pink. Will continue to monitor.
[2021-03-31 16:29] VITALS: BP 123/71
[2021-03-31] MEDS: ATORVASTATIN CALCIUM 20 MG TABLET PO SCH (21:45)
--- NOTE | 2021-03-31 22:13 | PDOC ---
Exam Note: Hayden Note: Please also refer to the separate dictated note~for this date of service dictated separately.~Patient seen individually. Discussed the patient with Nursing staff reviewed the chart.~Reviewed interim history and current functioning. Reviewed vital signs,~Labs/ Radiology~and current medications noted below. Continue current treatment with the changes noted in the dictated addendum note Assessment: Vital Signs/I&O: Vital Signs Date Time Temp Pulse Resp B/P (MAP) Pulse Ox O2 Delivery O2 Flow Rate FiO2 03/31/21 17:15 73 123/71 03/31/21 16:29 97.6 16 98 03/30/21 15:43 Room Air I & O 03/30/21 03/30/21 03/31/21 15:00 23:00 07:00 Intake Total 480 ml 240 ml Output Total 500 ml 100 ml Balance -20 ml 140 ml Labs: Laboratory Tests Test 03/31/21 06:46 03/31/21 07:06 03/31/21 07:25 03/31/21 07:40 Glucose (Fingerstick) 21 mg/dL (70-99) *L 68 mg/dL (70-99) L 77 mg/dL (70-99) Glucose Level 74 mg/dL (70-99) Test 03/31/21 08:18 03/31/21 11:29 03/31/21 16:43 03/31/21 19:11 Glucose (Fingerstick) 91 mg/dL (70-99) 266 mg/dL (70-99) H 429 mg/dL (70-99) H 340 mg/dL (70-99) H Current Medications: Meds: Laboratory Tests Test 03/31/21 06:46 03/31/21 07:06 03/31/21 07:25 03/31/21 07:40 Glucose (Fingerstick) 21 mg/dL 68 mg/dL 77 mg/dL Glucose Level 74 mg/dL Test 03/31/21 08:18 03/31/21 11:29 03/31/21 16:43 03/31/21 19:11 Glucose (Fingerstick) 91 mg/dL 266 mg/dL 429 mg/dL 340 mg/dL Current Medications Medications (Trade) Dose Ordered Sig/Lilly Route PRN Reason Start Time Stop Time Status Last Admin Dose Admin Acetaminophen (Tylenol) 650 mg PRN Q6HRS PRN PO MILD PAIN / TEMP > 100.3'F 03/28/21 19:30 03/30/21 05:28 Multi-Ingredient Ointment (Analgesic [place]) 1 billy PRN QID PRN TP MUSCLE PAIN 03/28/21 19:30 Al Hydroxide/Mg Hydroxide (Mylanta Plus Xs) 15 ml PRN AFTMEALHC PRN PO 2ND CHOICE DYSPEPSIA 03/28/21 19:30 Magnesium Hydroxide (Milk Of Magnesia) 2,400 mg PRN QHS PRN PO CONSTIPATION 03/28/21 19:30 Amlodipine Besylate (Norvasc) 10 mg DAILY PO 03/29/21 09:00 03/31/21 08:31 Bismuth Subsalicylate (Pepto-Bismol) 262 mg PRN Q6HRS PRN PO 1ST CHOICE DYSPEPSIA 03/28/21 20:00 Carvedilol (Coreg) 12.5 mg BIDWMEALS PO 03/29/21 08:00 03/31/21 17:15 Glimepiride (Amaryl) 3 mg BIDWMEALS PO 03/29/21 08:00 03/31/21 14:07 DC 03/30/21 17:00 Lisinopril (Prinivil) 20 mg DAILY PO 03/29/21 09:00 03/31/21 08:30 Non-Formulary Medication (Alendronate Sodium ) 70 mg WEEKLY PO 04/04/21 09:00 03/28/21 23:48 DC Ascorbic Acid (Vitamin C) 500 mg DAILY PO 03/29/21 09:00 03/31/21 08:31 Atorvastatin Calcium (Lipitor) 40 mg QHS PO 03/28/21 21:00 03/31/21 21:45 Non-Formulary Medication (Glimepiride ) 1 mg BID PO 03/28/21 21:00 UNV Insulin Glargine (Lantus Syringe) 20 unit DAILYWBKFT SQ 03/29/21 08:00 03/31/21 14:07 DC 03/30/21 09:14 Lactobacillus Rhamnosus (Culturelle) 1 cap BID PO 03/28/21 21:00 03/31/21 21:45 Levothyroxine Sodium (Synthroid) 125 mcg DAILY06 PO 03/29/21 06:00 03/31/21 05:09 Multivitamins/ Calcium (Thera-M Plus) 1 tab DAILY PO 03/29/21 09:00 03/31/21 08:31 Pantoprazole Sodium (Protonix) 40 mg DAILY PO 03/29/21 09:00 03/31/21 08:31 Linagliptin (Tradjenta) 5 mg DAILY PO 03/29/21 09:00 03/31/21 14:07 DC 03/30/21 09:09 Buspirone HCl (Buspar) 10 mg BID PO 03/28/21 21:00 03/29/21 20:13 DC 03/29/21 08:27 Divalproex Sodium (Depakote) 125 mg DAILY PO 03/29/21 09:00 03/31/21 08:31 Lorazepam (Ativan) 0.5 mg BID PO 03/28/21 21:00 03/31/21 21:46 Quetiapine Fumarate (SEROquel) 25 mg DAILY PO 03/29/21 09:00 03/31/21 08:31 Quetiapine Fumarate (SEROquel) 50 mg DAILY PO 03/29/21 09:00 03/31/21 08:30 Insulin Human Lispro (HumaLOG) 0-7 UNITS TIDWMEALS SQ 03/29/21 08:00 03/28/21 23:36 DC Dextrose (Dextrose 50%-Water Syringe) 12.5 gm PRN Q15MIN PRN IV SEE COMMENTS 03/28/21 23:15 Insulin Human Lispro (HumaLOG) 0-7 UNITS BIDWMEALS SQ 03/29/21 09:00 03/31/21 14:07 DC 03/30/21 17:00 Alendronate Sodium (Fosamax) 70 mg QWE PO 04/03/21 16:00 Sertraline HCl (Zoloft) 25 mg DAILY PO 03/30/21 09:00 03/31/21 08:30 Insulin Human Lispro (HumaLOG) 0-7 UNITS TIDAC SQ 03/31/21 16:30 03/31/21 17:14 Current Medications Medications (Trade) Dose Ordered Sig/Lilly Route PRN Reason Start Time Stop Time Status Last Admin Dose Admin Insulin Human Lispro (HumaLOG) 0-7 UNITS TIDAC SQ 03/31/21 16:30 03/31/21 17:14 I have reviewed the current psychotropics carefully including drug interactions. Risk benefit ratio favors no change other than as noted in my dictated progress note. Diagnosis: Problems: (1) Major depressive disorder, recurrent episode (2) Impulse control disorder, unspecified (3) Anxiety disorder, unspecified VISHAL SWAIN MD Mar 31, 2021 22:13
--- NOTE | 2021-04-01 04:52 | NUR ---
Nursing Note The patient was located in her room for her assessment and medication pass. The patient was pleasant during interactions with nurse. The patient took her medication whole. The patient was drowsy during interactions with this nurse. The patient is currently sleeping in her room.
[2021-04-01] MEDS: LEVOTHYROXINE 125 MCG TABLET PO SCH (06:15)
[2021-04-01 06:16] VITALS: BP 135/73
[2021-04-01] MEDS: INSULIN LISPRO 300 UNITS/3 ML VIAL. SQ SCH ×3 (08:30→16:30)
[2021-04-01] MEDS: QUEtiapine 50 MG TABLET. PO SCH (08:32)
[2021-04-01] MEDS: LORazepam 0.5 MG TABLET PO SCH ×2 (08:32→21:28)
[2021-04-01] MEDS: DIVALPROEX SODIUM 125 MG TABLET.DR. PO SCH (08:32)
[2021-04-01] MEDS: SERTRALINE 25 MG TABLET. PO SCH (08:32)
[2021-04-01] MEDS: LACTOBACILLUS RHAMNOSUS GG 1 CAPSULE. PO SCH ×2 (08:32→21:28)
[2021-04-01] MEDS: amLODIPine BESYLATE 10 MG TABLET PO SCH (08:32)
[2021-04-01] MEDS: QUEtiapine 25 MG TABLET. PO SCH (08:33)
[2021-04-01] MEDS: ASCORBIC ACID 500 MG TABLET PO SCH (08:33)
[2021-04-01] MEDS: MULTIVITAMIN with MINERAL TABLET. PO SCH (08:33)
[2021-04-01] MEDS: LISINOPRIL 20 MG TABLET PO SCH (08:33)
[2021-04-01] MEDS: CARVEDILOL 12.5 MG TABLET PO SCH ×2 (08:33→17:35)
[2021-04-01] MEDS: PANTOPRAZOLE 40 MG TABLET. PO SCH (08:33)
[2021-04-01] MEDS: ACETAMINOPHEN 325 MG TABLET PO PRN ×2 (09:53→18:22)
--- NOTE | 2021-04-01 11:18 | PDOC ---
Exam Note: Hayden Note: This note is a late entry for 03/29/2021 covers elements not covered in my initial note. Subjective: The patient was seen individually in the evening of 03/29/2021 with Evelin GARCIA, discussed and reviewed the chart. The patient slept 7-1/4 hours previous night. Reportedly per additional history, the patient might have had a CVA. We will inquire about this. She is compliant with medications, somewhat anxious, dysphoric and obsessive at times. Blood sugar is stable. She has been irritable, demanding at times, wanting [place] waffles for breakfast and not accepting anything that was brought to her. Nursing staff will address this behaviourally. Review of Systems: Ambulation impaired in wheelchair. No CV, GI, pulmonary, eye system symptoms on review. She may have UTI, has a Alexander in place. She does complain of some dysuria on further questioning. Mental Status Exam: The patient is reasonably oriented. Speech coherent. Abstraction fair. Computation impaired. Language function intact. Short-term memory is impaired, somewhat anxious, labile. No suicidal or homicidal ideation. Laboratory Data: Reviewed. Impression: Major depressive disorder. Anxiety disorder unspecified. Impulse control disorder. Mild cognitive impairment. Plan: Continue psychotropics from initial note. We will start Zoloft 25 mg a day for her mood and anxiety symptoms. Continue Depakote. Stop the BuSpar, probably has little benefit for her. Maintain Ativan 0.5 mg b.i.d., Seroquel 75 mg a day. We will increase Zoloft gradually but if she has bipolar symptoms, I would not want to increase it too rapidly to worsen some of her reza, agitation. Assessment: Vital Signs/I&O: Vital Signs Date Time Temp Pulse Resp B/P (MAP) Pulse Ox O2 Delivery O2 Flow Rate FiO2 04/01/21 08:33 75 135/73 04/01/21 06:16 97.5 18 96 03/30/21 15:43 Room Air I & O 03/31/21 03/31/21 04/01/21 14:59 22:59 06:59 Intake Total 720 ml 240 ml Output Total 700 ml Balance 720 ml -460 ml Labs: Laboratory Tests Test 03/31/21 11:29 03/31/21 16:43 03/31/21 19:11 04/01/21 08:04 Glucose (Fingerstick) 266 mg/dL (70-99) H 429 mg/dL (70-99) H 340 mg/dL (70-99) H 166 mg/dL (70-99) H Current Medications: Meds: Laboratory Tests Test 03/31/21 11:29 03/31/21 16:43 03/31/21 19:11 04/01/21 08:04 Glucose (Fingerstick) 266 mg/dL 429 mg/dL 340 mg/dL 166 mg/dL Current Medications Medications (Trade) Dose Ordered Sig/Lilly Route PRN Reason Start Time Stop Time Status Last Admin Dose Admin Acetaminophen (Tylenol) 650 mg PRN Q6HRS PRN PO MILD PAIN / TEMP > 100.3'F 03/28/21 19:30 04/01/21 09:53 Multi-Ingredient Ointment (Analgesic [place]) 1 billy PRN QID PRN TP MUSCLE PAIN 03/28/21 19:30 Al Hydroxide/Mg Hydroxide (Mylanta Plus Xs) 15 ml PRN AFTMEALHC PRN PO 2ND CHOICE DYSPEPSIA 03/28/21 19:30 Magnesium Hydroxide (Milk Of Magnesia) 2,400 mg PRN QHS PRN PO CONSTIPATION 03/28/21 19:30 Amlodipine Besylate (Norvasc) 10 mg DAILY PO 03/29/21 09:00 04/01/21 08:32 Bismuth Subsalicylate (Pepto-Bismol) 262 mg PRN Q6HRS PRN PO 1ST CHOICE DYSPEPSIA 03/28/21 20:00 Carvedilol (Coreg) 12.5 mg BIDWMEALS PO 03/29/21 08:00 04/01/21 08:33 Glimepiride (Amaryl) 3 mg BIDWMEALS PO 03/29/21 08:00 03/31/21 14:07 DC 03/30/21 17:00 Lisinopril (Prinivil) 20 mg DAILY PO 03/29/21 09:00 04/01/21 08:33 Non-Formulary Medication (Alendronate Sodium ) 70 mg WEEKLY PO 04/04/21 09:00 03/28/21 23:48 DC Ascorbic Acid (Vitamin C) 500 mg DAILY PO 03/29/21 09:00 04/01/21 08:33 Atorvastatin Calcium (Lipitor) 40 mg QHS PO 03/28/21 21:00 03/31/21 21:45 Non-Formulary Medication (Glimepiride ) 1 mg BID PO 03/28/21 21:00 UNV Insulin Glargine (Lantus Syringe) 20 unit DAILYWBKFT SQ 03/29/21 08:00 03/31/21 14:07 DC 03/30/21 09:14 Lactobacillus Rhamnosus (Culturelle) 1 cap BID PO 03/28/21 21:00 04/01/21 08:32 Levothyroxine Sodium (Synthroid) 125 mcg DAILY06 PO 03/29/21 06:00 04/01/21 06:15 Multivitamins/ Calcium (Thera-M Plus) 1 tab DAILY PO 03/29/21 09:00 04/01/21 08:33 Pantoprazole Sodium (Protonix) 40 mg DAILY PO 03/29/21 09:00 04/01/21 08:33 Linagliptin (Tradjenta) 5 mg DAILY PO 03/29/21 09:00 03/31/21 14:07 DC 03/30/21 09:09 Buspirone HCl (Buspar) 10 mg BID PO 03/28/21 21:00 03/29/21 20:13 DC 03/29/21 08:27 Divalproex Sodium (Depakote) 125 mg DAILY PO 03/29/21 09:00 04/01/21 08:32 Lorazepam (Ativan) 0.5 mg BID PO 03/28/21 21:00 04/01/21 08:32 Quetiapine Fumarate (SEROquel) 25 mg DAILY PO 03/29/21 09:00 04/01/21 08:33 Quetiapine Fumarate (SEROquel) 50 mg DAILY PO 03/29/21 09:00 04/01/21 08:32 Insulin Human Lispro (HumaLOG) 0-7 UNITS TIDWMEALS SQ 03/29/21 08:00 03/28/21 23:36 DC Dextrose (Dextrose 50%-Water Syringe) 12.5 gm PRN Q15MIN PRN IV SEE COMMENTS 03/28/21 23:15 Insulin Human Lispro (HumaLOG) 0-7 UNITS BIDWMEALS SQ 03/29/21 09:00 03/31/21 14:07 DC 03/30/21 17:00 Alendronate Sodium (Fosamax) 70 mg QWE PO 04/03/21 16:00 Sertraline HCl (Zoloft) 25 mg DAILY PO 03/30/21 09:00 04/01/21 08:32 Insulin Human Lispro (HumaLOG) 0-7 UNITS TIDAC SQ 03/31/21 16:30 04/01/21 08:30 Current Medications Medications (Trade) Dose Ordered Sig/Lilly Route PRN Reason Start Time Stop Time Status Last Admin Dose Admin Insulin Human Lispro (HumaLOG) 0-7 UNITS TIDAC SQ 03/31/21 16:30 04/01/21 08:30 I have reviewed the current psychotropics carefully including drug interactions. Risk benefit ratio favors no change other than as noted in my dictated progress note. Diagnosis: Problems: (1) Mild cognitive impairment (2) Major depressive disorder, recurrent episode (3) Impulse control disorder, unspecified (4) Anxiety disorder, unspecified VISHAL SWAIN MD Apr 01, 2021 11:17
--- NOTE | 2021-04-01 11:29 | NUR ---
Nursing note: Patient in hallway for morning medications & assessment, meds taken whole. Patient is A/O to self only. Patient is demanding, acts as if she can't do things herself, withdrawn, and frequently requesting misc items. She was resistive to cares with staff and scratching them. She scratched the top of her head when itching her scalp causing a small abrasion. She propels self in w/c, 2 person assist for transfers. Alexander patent with clear yellow urine noted. She is currently in bed resting with eyes closed. Will continue to monitor.
--- NOTE | 2021-04-01 11:38 | PDOC ---
Exam Note: Hayden Note: This note is a late entry for 03/30/2021 covers elements not covered in my initial note. Subjective: The patient was seen individually in the evening of 03/30/2021 with Evelin GARCIA, discussed and reviewed the chart. The patient slept 8-1/4 hours previous night. She has been withdrawn. She is quite agitated at one point with staff scratching a nursing aid, refusing to assist. She did eat her lunch and ate no supper. I met with her in her room. Review of Systems: Ambulation impaired in wheelchair. No CV, GI, pulmonary, eye system symptoms on review. Mental Status Exam: The patient is reasonably oriented. Speech coherent has some latency. Often response is monosyllabic. Abstraction fair. Computation impaired. Language function intact. Mood and affect remains somewhat anxious and withdrawn. Laboratory Data: Reviewed. Impression: Major depressive disorder. Anxiety disorder unspecified. Impulse control disorder. Mild cognitive impairment. Plan: Continue psychotropics from initial note. We will adjust further as clinically indicated. Assessment: Vital Signs/I&O: Vital Signs Date Time Temp Pulse Resp B/P (MAP) Pulse Ox O2 Delivery O2 Flow Rate FiO2 04/01/21 08:33 75 135/73 04/01/21 06:16 97.5 18 96 03/30/21 15:43 Room Air I & O 03/31/21 03/31/21 04/01/21 15:00 23:00 07:00 Intake Total 720 ml 240 ml Output Total 700 ml Balance 720 ml -460 ml Labs: Laboratory Tests Test 03/31/21 16:43 03/31/21 19:11 04/01/21 08:04 Glucose (Fingerstick) 429 mg/dL (70-99) H 340 mg/dL (70-99) H 166 mg/dL (70-99) H Current Medications: Meds: Laboratory Tests Test 03/31/21 16:43 03/31/21 19:11 04/01/21 08:04 Glucose (Fingerstick) 429 mg/dL 340 mg/dL 166 mg/dL Current Medications Medications (Trade) Dose Ordered Sig/Lilly Route PRN Reason Start Time Stop Time Status Last Admin Dose Admin Acetaminophen (Tylenol) 650 mg PRN Q6HRS PRN PO MILD PAIN / TEMP > 100.3'F 03/28/21 19:30 04/01/21 09:53 Multi-Ingredient Ointment (Analgesic [place]) 1 billy PRN QID PRN TP MUSCLE PAIN 03/28/21 19:30 Al Hydroxide/Mg Hydroxide (Mylanta Plus Xs) 15 ml PRN AFTMEALHC PRN PO 2ND CHOICE DYSPEPSIA 03/28/21 19:30 Magnesium Hydroxide (Milk Of Magnesia) 2,400 mg PRN QHS PRN PO CONSTIPATION 03/28/21 19:30 Amlodipine Besylate (Norvasc) 10 mg DAILY PO 03/29/21 09:00 04/01/21 08:32 Bismuth Subsalicylate (Pepto-Bismol) 262 mg PRN Q6HRS PRN PO 1ST CHOICE DYSPEPSIA 03/28/21 20:00 Carvedilol (Coreg) 12.5 mg BIDWMEALS PO 03/29/21 08:00 04/01/21 08:33 Glimepiride (Amaryl) 3 mg BIDWMEALS PO 03/29/21 08:00 03/31/21 14:07 DC 03/30/21 17:00 Lisinopril (Prinivil) 20 mg DAILY PO 03/29/21 09:00 04/01/21 08:33 Non-Formulary Medication (Alendronate Sodium ) 70 mg WEEKLY PO 04/04/21 09:00 03/28/21 23:48 DC Ascorbic Acid (Vitamin C) 500 mg DAILY PO 03/29/21 09:00 04/01/21 08:33 Atorvastatin Calcium (Lipitor) 40 mg QHS PO 03/28/21 21:00 03/31/21 21:45 Non-Formulary Medication (Glimepiride ) 1 mg BID PO 03/28/21 21:00 UNV Insulin Glargine (Lantus Syringe) 20 unit DAILYWBKFT SQ 03/29/21 08:00 03/31/21 14:07 DC 03/30/21 09:14 Lactobacillus Rhamnosus (Culturelle) 1 cap BID PO 03/28/21 21:00 04/01/21 08:32 Levothyroxine Sodium (Synthroid) 125 mcg DAILY06 PO 03/29/21 06:00 04/01/21 06:15 Multivitamins/ Calcium (Thera-M Plus) 1 tab DAILY PO 03/29/21 09:00 04/01/21 08:33 Pantoprazole Sodium (Protonix) 40 mg DAILY PO 03/29/21 09:00 04/01/21 08:33 Linagliptin (Tradjenta) 5 mg DAILY PO 03/29/21 09:00 03/31/21 14:07 DC 03/30/21 09:09 Buspirone HCl (Buspar) 10 mg BID PO 03/28/21 21:00 03/29/21 20:13 DC 03/29/21 08:27 Divalproex Sodium (Depakote) 125 mg DAILY PO 03/29/21 09:00 04/01/21 08:32 Lorazepam (Ativan) 0.5 mg BID PO 03/28/21 21:00 04/01/21 08:32 Quetiapine Fumarate (SEROquel) 25 mg DAILY PO 03/29/21 09:00 04/01/21 08:33 Quetiapine Fumarate (SEROquel) 50 mg DAILY PO 03/29/21 09:00 04/01/21 08:32 Insulin Human Lispro (HumaLOG) 0-7 UNITS TIDWMEALS SQ 03/29/21 08:00 03/28/21 23:36 DC Dextrose (Dextrose 50%-Water Syringe) 12.5 gm PRN Q15MIN PRN IV SEE COMMENTS 03/28/21 23:15 Insulin Human Lispro (HumaLOG) 0-7 UNITS BIDWMEALS SQ 03/29/21 09:00 03/31/21 14:07 DC 03/30/21 17:00 Alendronate Sodium (Fosamax) 70 mg QWE PO 04/03/21 16:00 Sertraline HCl (Zoloft) 25 mg DAILY PO 03/30/21 09:00 04/01/21 08:32 Insulin Human Lispro (HumaLOG) 0-7 UNITS TIDAC SQ 03/31/21 16:30 04/01/21 08:30 Current Medications Medications (Trade) Dose Ordered Sig/Lilly Route PRN Reason Start Time Stop Time Status Last Admin Dose Admin Insulin Human Lispro (HumaLOG) 0-7 UNITS TIDAC SQ 03/31/21 16:30 04/01/21 08:30 I have reviewed the current psychotropics carefully including drug interactions. Risk benefit ratio favors no change other than as noted in my dictated progress note. Diagnosis: Problems: (1) Major depressive disorder, recurrent episode (2) Impulse control disorder, unspecified (3) Anxiety disorder, unspecified (4) Mild cognitive impairment VISHAL SWAIN MD Apr 01, 2021 11:38
--- NOTE | 2021-04-01 11:53 | PDOC ---
Exam Note: Hayden Note: This note is a late entry for 03/31/2021 covers elements not covered in my initial note. Subjective: The patient was seen individually in the evening of 03/31/2021 with Rik GARCIA, discussed and reviewed the chart. The patient slept 9-3/4 hours previous night. She has been somewhat needy. She has right-sided weakness. I met with her in her room. She is less irritable. She is tolerating Zoloft 25 mg a day. Review of Systems: Ambulation impaired in wheelchair. No CV, , pulmonary, eye system symptoms on review. Mental Status Exam: The patient is reasonably oriented. Speech coherent has some latency. Often response is monosyllabic. Abstraction fair. Computation impaired. Language function intact. Mood and affect remains somewhat anxious and withdrawn. Laboratory Data: Reviewed. Impression: Major depressive disorder. Anxiety disorder unspecified. Impulse control disorder. Mild cognitive impairment. Plan: Continue psychotropics from initial note. She is on Depakote delayed release 125 mg daily with a level of 5. Given that we are treating her for her major depressive disorder, anxiety disorder, rule out bipolar and there is no real evidence for the need for using Depakote. We will stop the Depakote delayed release 125 mg daily. Maintain Zoloft 25 mg a day, Ativan 0.5 mg b.i.d., Seroquel 75 mg a day. Adjust further as clinically indicated. Assessment: Vital Signs/I&O: Vital Signs Date Time Temp Pulse Resp B/P (MAP) Pulse Ox O2 Delivery O2 Flow Rate FiO2 04/01/21 08:33 75 135/73 04/01/21 06:16 97.5 18 96 03/30/21 15:43 Room Air I & O 03/31/21 03/31/21 04/01/21 15:00 23:00 07:00 Intake Total 720 ml 240 ml Output Total 700 ml Balance 720 ml -460 ml Labs: Laboratory Tests Test 03/31/21 16:43 03/31/21 19:11 04/01/21 08:04 04/01/21 11:39 Glucose (Fingerstick) 429 mg/dL (70-99) H 340 mg/dL (70-99) H 166 mg/dL (70-99) H 207 mg/dL (70-99) H Current Medications: Meds: Laboratory Tests Test 03/31/21 16:43 03/31/21 19:11 04/01/21 08:04 04/01/21 11:39 Glucose (Fingerstick) 429 mg/dL 340 mg/dL 166 mg/dL 207 mg/dL Current Medications Medications (Trade) Dose Ordered Sig/Lilly Route PRN Reason Start Time Stop Time Status Last Admin Dose Admin Acetaminophen (Tylenol) 650 mg PRN Q6HRS PRN PO MILD PAIN / TEMP > 100.3'F 03/28/21 19:30 04/01/21 09:53 Multi-Ingredient Ointment (Analgesic [place]) 1 billy PRN QID PRN TP MUSCLE PAIN 03/28/21 19:30 Al Hydroxide/Mg Hydroxide (Mylanta Plus Xs) 15 ml PRN AFTMEALHC PRN PO 2ND CHOICE DYSPEPSIA 03/28/21 19:30 Magnesium Hydroxide (Milk Of Magnesia) 2,400 mg PRN QHS PRN PO CONSTIPATION 03/28/21 19:30 Amlodipine Besylate (Norvasc) 10 mg DAILY PO 03/29/21 09:00 04/01/21 08:32 Bismuth Subsalicylate (Pepto-Bismol) 262 mg PRN Q6HRS PRN PO 1ST CHOICE DYSPEPSIA 03/28/21 20:00 Carvedilol (Coreg) 12.5 mg BIDWMEALS PO 03/29/21 08:00 04/01/21 08:33 Glimepiride (Amaryl) 3 mg BIDWMEALS PO 03/29/21 08:00 03/31/21 14:07 DC 03/30/21 17:00 Lisinopril (Prinivil) 20 mg DAILY PO 03/29/21 09:00 04/01/21 08:33 Non-Formulary Medication (Alendronate Sodium ) 70 mg WEEKLY PO 04/04/21 09:00 03/28/21 23:48 DC Ascorbic Acid (Vitamin C) 500 mg DAILY PO 03/29/21 09:00 04/01/21 08:33 Atorvastatin Calcium (Lipitor) 40 mg QHS PO 03/28/21 21:00 03/31/21 21:45 Non-Formulary Medication (Glimepiride ) 1 mg BID PO 03/28/21 21:00 UNV Insulin Glargine (Lantus Syringe) 20 unit DAILYWBKFT SQ 03/29/21 08:00 03/31/21 14:07 DC 03/30/21 09:14 Lactobacillus Rhamnosus (Culturelle) 1 cap BID PO 03/28/21 21:00 04/01/21 08:32 Levothyroxine Sodium (Synthroid) 125 mcg DAILY06 PO 03/29/21 06:00 04/01/21 06:15 Multivitamins/ Calcium (Thera-M Plus) 1 tab DAILY PO 03/29/21 09:00 04/01/21 08:33 Pantoprazole Sodium (Protonix) 40 mg DAILY PO 03/29/21 09:00 04/01/21 08:33 Linagliptin (Tradjenta) 5 mg DAILY PO 03/29/21 09:00 03/31/21 14:07 DC 03/30/21 09:09 Buspirone HCl (Buspar) 10 mg BID PO 03/28/21 21:00 03/29/21 20:13 DC 03/29/21 08:27 Divalproex Sodium (Depakote) 125 mg DAILY PO 03/29/21 09:00 04/01/21 08:32 Lorazepam (Ativan) 0.5 mg BID PO 03/28/21 21:00 04/01/21 08:32 Quetiapine Fumarate (SEROquel) 25 mg DAILY PO 03/29/21 09:00 04/01/21 08:33 Quetiapine Fumarate (SEROquel) 50 mg DAILY PO 03/29/21 09:00 04/01/21 08:32 Insulin Human Lispro (HumaLOG) 0-7 UNITS TIDWMEALS SQ 03/29/21 08:00 03/28/21 23:36 DC Dextrose (Dextrose 50%-Water Syringe) 12.5 gm PRN Q15MIN PRN IV SEE COMMENTS 03/28/21 23:15 Insulin Human Lispro (HumaLOG) 0-7 UNITS BIDWMEALS SQ 03/29/21 09:00 03/31/21 14:07 DC 03/30/21 17:00 Alendronate Sodium (Fosamax) 70 mg QWE PO 04/03/21 16:00 Sertraline HCl (Zoloft) 25 mg DAILY PO 03/30/21 09:00 04/01/21 08:32 Insulin Human Lispro (HumaLOG) 0-7 UNITS TIDAC SQ 03/31/21 16:30 04/01/21 08:30 Current Medications Medications (Trade) Dose Ordered Sig/Lilly Route PRN Reason Start Time Stop Time Status Last Admin Dose Admin Insulin Human Lispro (HumaLOG) 0-7 UNITS TIDAC SQ 03/31/21 16:30 04/01/21 08:30 I have reviewed the current psychotropics carefully including drug interactions. Risk benefit ratio favors no change other than as noted in my dictated progress note. Diagnosis: Problems: (1) Major depressive disorder, recurrent episode (2) Impulse control disorder, unspecified (3) Anxiety disorder, unspecified (4) Mild cognitive impairment VISHAL SWAIN MD Apr 01, 2021 11:53
--- NOTE | 2021-04-01 15:05 | NUR ---
PSYCHOSOCIAL ASSESSMENT ADMISSION DATE: 03/28/21 CONTACT INFORMATION: DPOA/Guardian Contact Name: Son/DPOA-Bruno Alvarez Contact Address: [place] Contact Phone #: [phone] ETHNIC ORIGIN: REASONS FOR ADMISSION: Aggressive Agitated Angry Anxiety/Panic Combative Depressed ADDITIONAL ADMISSION COMMENTS: Per intake report, pt is verbally aggressive toward staff, is physically aggressive during cares, and is agitated. REASON FOR ADMISSION IN PATIENT/FAMILY'S OWN WORDS: Per pt son, Bruno, pt had a stroke and lost most of her ability to do anything with her right side, prior to going to live at [facility]. Following the stroke and being in the hospital, she had a brief stay at a rehab setting and made enough progress to return home with in home supports. Bruno reports that he took FMLA to help with some of her caretaking and that his became one of her primary in home caretakers. Bruno reports that they noticed a decline in her behavior and attitude following the stroke. Bruno reports that he was the one responsible for getting pt to her doctor appointments. She over time just got to the point where she really didn't want to do her physical therapy and she got to the point where she was needing more and more help with transfers, toileting, and some what of an increase with feeding. Bruno reports that despite them encouraging her to do things for herself, she was of the mentality that because she was paying for services to help her that staff should do everything for her. Bruno reports having tried to help her understand that if everyone does everything for her, that she will not make improvements. Bruno also reports that pt has hit and scratched some of the staff at her facility. He believes that it could be somewhat related to having a skeleton crew at the facility as since the start 2019, pt's behaviors seemed to have changed. PATIENT/FAMILY EXPECTATIONS FOR ADMISSION: Look into pt medications and consider what needs to be altered or reevaluated then monitor medication changes/effects. LIVING SITUATION: Patient lives with: [facility] Other living arrangements: [facility] Contact Name: Anastasia KELLEY -[phone] or Myles Import/Export Analyst-[phone] Contact Address: [address] [place] [id number] Contact Phone #: Contact Fax #: [phone] FAMILY RELATIONS: Marital Status: # of Marriages: 1 # of Children: 2 [facility] Family Support: Concerned Cooperative Involved in DC Planning Additional Comments r/t Family: Per pt son, Bruno, pt was only once. She and her who was an electrical equipment assembler were for many years (he thought over 30+). Pt and her had two children, Bruno, who is the DPOA, and Josee, who is the daughter and lives in the [facility]. SIGNIFICANT PSYCHIATRIC/MEDICAL HISTORY: Psychiatric/Treatment History: None Pertinent Family History: None HISTORICAL DATA: Childhood Environment: [place] Nurturing Supportive Childhood Environment Additional Comments: Pt was raised in [place], [place] in a loving home by her mother, Gloria Davila, and father, Brandon. Pt had one brother who was born with only a partial arm. Bruno believes that pt always had some resentment toward her brother as pt perceived that her parents catered too much to him. Bruno reports that pt and her brother had a falling out over their parents estate when they parents . 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 service: N Quaker background: Roman Catholic-but did not attend regularly. Sexual orientation: Heterosexual Educational Level: Pt graduated college with a degree in Art. She attended college in [place], [place], then went to for a while, and also attended [facility] [employer]. Past/Present Interests/Hobbies: Pt used to love to play the piano and listen to music. After her stroke, pt really only sits in her recliner and watches movies. She struggles with vision. Financial support/resources: Custodial/Pension Monthly income: Unknown Person handling finances: Son/Facility Do you have a history of legal problems: N Cultural considerations: None SOCIAL RELATIONSHIPS-CURRENT/PAST: Psychiatrist: None PCP: Dr. Hogan Counselor/Therapist: None Veterans' Administration: None Support Group: None Lathe Setup Operator/Blood Bank Technologist: None Other relationships: None STRENGTHS & WEAKNESSES: Patient's strengths: Good family support Good verbal skills Stable living arrange Financial support Strong relationships Education level Approachable Other patient strengths: Patient's weaknesses: Impulsive Poor relationships Health problems Physically Aggressive Verbally Aggressive Other patient weaknesses: PRELIMINARY PLAN OF TREATMENT: Preliminary plan: Dec. Anxiety/Panic Promote Coping Skill Improved Social Skills Medication Stabilization Monitor Med Effects Control abnormal behavior Prevent Deterioration Dec. Aggression Other preliminary treatment comments: While at [facility], pt will be encouraged to attend SW group and recreational therapy groups. She will report any known delusions or recognizable hallucinations to medical staff. DISCHARGE PLANNING: Discharge planning/disposition: Current Living Arrange. Additional discharge needs identified: None noted at this time. ADDITIONAL INFORMATION: Other Pertinent Data: Son/DPOA is aware of pt admission to [facility] and is available for further information if needed. Psychosocial was completed on 03/29/21 and entered on 04/01/21.
--- NOTE | 2021-04-01 15:21 | TX PLAN ---
Interdisciplinary Tx Plan Admission Information Mar 28, 2021 at 17:55 Legal Status (on Admission): Voluntary DPOA/Guardian Name: Son/DPOA-Bruno Alvarez Contact Other Contact Name: Anastasia KELLEY -[phone] or Myles Wind Energy Mechanic-[phone] Verified Code Status: Full Code Allergies: Coded Allergies: No Known Allergies (Verified Allergy, Unknown, 03/28/21) Diagnoses Primary Diagnosis: (1) Major depressive disorder, recurrent episode (2) Impulse control disorder, unspecified (3) Anxiety disorder, unspecified (4) Mild cognitive impairment Reasons for Admission: Aggressive, Agitated, Depressed, Angry, Anxiety/Panic, Combative Problem in Patient's Words: Per pt son, Bruno, pt had a stroke and lost most of her ability to do anything with her right side, prior to going to live at [facility]. Following the stroke and being in the hospital, she had a brief stay at a rehab setting and made enough progress to return home with in home supports. Bruno reports that he took FMLA to help with some of her caretaking and that his became one of her primary in home caretakers. Bruno reports that they noticed a decline in her behavior and attitude following the stroke. Bruno reports that he was the one responsible for getting pt to her doctor appointments. She over time just got to the point where she really didn't want to do her physical therapy and she got to the point where she was needing more and more help with transfers, toileting, and some what of an increase with feeding. Bruno reports that despite them encouraging her to do things for herself, she was of the mentality that becasue she was paying for services to help her that staff should do everything for her. Bruno reports having tried to help her understand that if everyone does everything for her, that she will not make imporvements. Bruno also reports that pt has hit and scratched some of the staff at her facility. He believes that it could be somewhat related to having a skeleton crew at the facility as since the start 2019, pt's behaviors seemed to have changed. Additional Admission Comments: Per intake report, pt is verbally aggressive toward staff, is physically aggressive during cares, and is agitated. Problems Active Problems: Irritable, helpless, depressed, agitated, aggressive Inactive Problems: None noted at this time. Pt Strengths/Limitations Ability for [place]: Poor Cognitive Functioning/Ability: Fair Communication Skills/Ability: Fair Financial Resources: Good Insight/Judgement: Fair Intellectual Ability: Good Physical Health: Poor Social Skills: Fair Stability in Family: Good Stability in School/Work: Good Verbal Skills: Fair Discharge Criteria Discharge Criteria: No need for close observ., Adequate arrangements @DC, Verbal commit med comply, Improved behavior, Improved mood/thought Other Discharge Comments: None noted at this time. Preliminary Discharge Plan Preliminary DC Plan: Current Living Arrange. Special Precautions Special Precautions: Agitation/Assault Fall Risk: Moderate Initial D/C Plan Pt will return to [facility] Identified Discharge Needs: None noted at this time. Currently Utilized Resources Currently Utilized Resources/P: PCP-Dr. Hogan Facility-[facility] (Contact is Anastasia KELLEY [phone]) Son/DPOA-Bruno Alvarez Dtr-Josee Referrals Community Resources: None at this time Identified Problems/Hx/Goals Objectives/Short-Term Goals Short Term Goals: Control abnormal behavior, Dec. Aggression, Dec. Anxiety/Panic, Improved Social Skills, Medication Stabilization, Monitor Med Effects, Prevent Deterioration, Promote Coping Skill Short Term Goals in Patient's: Help pt be less irritable and aggressive and more compliant with cares. Help to stabilize her medications and see if the one she is taking are correct for her versus a different medication regimen. Interventions/Frequency Staff Interventions/Frequency&: Psychiatry to assess pt three times per week for medication management. Nursing to assess behaviors, monitor medications, and complete 15 minute checks daily. Social work to see pt at least two times weekly to aid in return to placement. Activities to encourage pt to participate in group activities daily. 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 Education: Pt graduated college with a degree in Art. She attended college in [place], [place], then went to for a while, and also attended [employer]. Community Follow-up PCP Community Provider/Family Inpu: Pt son/DPOA aware of pt hospitalization and is available for further information as needed. Treatment Plan Explained Patient/Bricklayer'S Assistant had this treatment plan explained to him/her as indicated by the signature below and has been given the opportunity to ask questions and make suggestions: Date: Patient/Bricklayer'S Assistant Signature: Additional Comments Tx plan completed on 03/29/21 and entered on 04/01/21. SHAQ DAUGHERTY Apr 01, 2021 15:21
[2021-04-01 15:49] VITALS: BP 112/75
--- NOTE | 2021-04-01 17:15 | NUR ---
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 Pt assessed and redressed. 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 Wound bed is red with slough, no redness or fluctuance noted. No other wound noted. Pt had BM so brief was changed. Treatment Recommendations/Plan: Recommend placing Iodoflex mahogany over wound, and covering with an Aquacel foam, change every 2-3 days. Also recommend post op shoe for off-loading. Education provided: POC discussed with RADHA Martinez. Offloading surface/device: post op shoe to offload, as pt scoots in her w/c. Recommended Referrals/Tests: n/a Discharge Recommendations for dressings: same as treatment plan above
[2021-04-01] MEDS: ATORVASTATIN CALCIUM 20 MG TABLET PO SCH (21:28)
--- NOTE | 2021-04-01 21:58 | PDOC ---
Exam Note: Hayden Note: Please also refer to the separate dictated note~for this date of service dictated separately.~Patient seen individually. Discussed the patient with Nursing staff reviewed the chart.~Reviewed interim history and current functioning. Reviewed vital signs,~Labs/ Radiology~and current medications noted below. Continue current treatment with the changes noted in the dictated addendum note Assessment: Vital Signs/I&O: Vital Signs Date Time Temp Pulse Resp B/P (MAP) Pulse Ox O2 Delivery O2 Flow Rate FiO2 04/01/21 17:35 69 112/75 04/01/21 15:49 97.3 17 100 Room Air I & O 03/31/21 03/31/21 04/01/21 15:00 23:00 07:00 Intake Total 720 ml 240 ml Output Total 700 ml Balance 720 ml -460 ml Labs: Laboratory Tests Test 04/01/21 08:04 04/01/21 11:39 04/01/21 16:54 04/01/21 19:12 Glucose (Fingerstick) 166 mg/dL (70-99) H 207 mg/dL (70-99) H 110 mg/dL (70-99) H 226 mg/dL (70-99) H Current Medications: Meds: Laboratory Tests Test 04/01/21 08:04 04/01/21 11:39 04/01/21 16:54 04/01/21 19:12 Glucose (Fingerstick) 166 mg/dL 207 mg/dL 110 mg/dL 226 mg/dL Current Medications Medications (Trade) Dose Ordered Sig/Lilly Route PRN Reason Start Time Stop Time Status Last Admin Dose Admin Acetaminophen (Tylenol) 650 mg PRN Q6HRS PRN PO MILD PAIN / TEMP > 100.3'F 03/28/21 19:30 04/01/21 18:22 Multi-Ingredient Ointment (Analgesic [place]) 1 billy PRN QID PRN TP MUSCLE PAIN 03/28/21 19:30 Al Hydroxide/Mg Hydroxide (Mylanta Plus Xs) 15 ml PRN AFTMEALHC PRN PO 2ND CHOICE DYSPEPSIA 03/28/21 19:30 Magnesium Hydroxide (Milk Of Magnesia) 2,400 mg PRN QHS PRN PO CONSTIPATION 03/28/21 19:30 Amlodipine Besylate (Norvasc) 10 mg DAILY PO 03/29/21 09:00 04/01/21 08:32 Bismuth Subsalicylate (Pepto-Bismol) 262 mg PRN Q6HRS PRN PO 1ST CHOICE DYSPEPSIA 03/28/21 20:00 Carvedilol (Coreg) 12.5 mg BIDWMEALS PO 03/29/21 08:00 04/01/21 17:35 Glimepiride (Amaryl) 3 mg BIDWMEALS PO 03/29/21 08:00 03/31/21 14:07 DC 03/30/21 17:00 Lisinopril (Prinivil) 20 mg DAILY PO 03/29/21 09:00 04/01/21 08:33 Non-Formulary Medication (Alendronate Sodium ) 70 mg WEEKLY PO 04/04/21 09:00 03/28/21 23:48 DC Ascorbic Acid (Vitamin C) 500 mg DAILY PO 03/29/21 09:00 04/01/21 08:33 Atorvastatin Calcium (Lipitor) 40 mg QHS PO 03/28/21 21:00 04/01/21 21:28 Non-Formulary Medication (Glimepiride ) 1 mg BID PO 03/28/21 21:00 UNV Insulin Glargine (Lantus Syringe) 20 unit DAILYWBKFT SQ 03/29/21 08:00 03/31/21 14:07 DC 03/30/21 09:14 Lactobacillus Rhamnosus (Culturelle) 1 cap BID PO 03/28/21 21:00 04/01/21 21:28 Levothyroxine Sodium (Synthroid) 125 mcg DAILY06 PO 03/29/21 06:00 04/01/21 06:15 Multivitamins/ Calcium (Thera-M Plus) 1 tab DAILY PO 03/29/21 09:00 04/01/21 08:33 Pantoprazole Sodium (Protonix) 40 mg DAILY PO 03/29/21 09:00 04/01/21 08:33 Linagliptin (Tradjenta) 5 mg DAILY PO 03/29/21 09:00 03/31/21 14:07 DC 03/30/21 09:09 Buspirone HCl (Buspar) 10 mg BID PO 03/28/21 21:00 03/29/21 20:13 DC 03/29/21 08:27 Divalproex Sodium (Depakote) 125 mg DAILY PO 03/29/21 09:00 04/01/21 19:42 DC 04/01/21 08:32 Lorazepam (Ativan) 0.5 mg BID PO 03/28/21 21:00 04/01/21 21:28 Quetiapine Fumarate (SEROquel) 25 mg DAILY PO 03/29/21 09:00 04/01/21 08:33 Quetiapine Fumarate (SEROquel) 50 mg DAILY PO 03/29/21 09:00 04/01/21 08:32 Insulin Human Lispro (HumaLOG) 0-7 UNITS TIDWMEALS SQ 03/29/21 08:00 03/28/21 23:36 DC Dextrose (Dextrose 50%-Water Syringe) 12.5 gm PRN Q15MIN PRN IV SEE COMMENTS 03/28/21 23:15 Insulin Human Lispro (HumaLOG) 0-7 UNITS BIDWMEALS SQ 03/29/21 09:00 03/31/21 14:07 DC 03/30/21 17:00 Alendronate Sodium (Fosamax) 70 mg WEEKLYAC PO 04/03/21 07:00 Sertraline HCl (Zoloft) 25 mg DAILY PO 03/30/21 09:00 04/01/21 08:32 Insulin Human Lispro (HumaLOG) 0-7 UNITS TIDAC SQ 03/31/21 16:30 04/01/21 12:19 I have reviewed the current psychotropics carefully including drug interactions. Risk benefit ratio favors no change other than as noted in my dictated progress note. Diagnosis: Problems: (1) Major depressive disorder, recurrent episode (2) Impulse control disorder, unspecified (3) Anxiety disorder, unspecified (4) Mild cognitive impairment VISHAL SWAIN MD Apr 01, 2021 21:58
--- NOTE | 2021-04-02 03:27 | NUR ---
Nursing Note The patient was located in her room for her assessment and medication pass. The patient was compliant with her medication and took them one at a time via spoon. The patient was alert to name and hospital. The patient was less demanding and more appropriate during interactions with this nurse this shift. The patient is currently sleeping in her room.
[2021-04-02] MEDS: LEVOTHYROXINE 125 MCG TABLET PO SCH (06:05)
[2021-04-02 06:12] VITALS: BP 120/55
[2021-04-02] MEDS: SERTRALINE 25 MG TABLET. PO SCH (08:47)
[2021-04-02] MEDS: amLODIPine BESYLATE 10 MG TABLET PO SCH (08:48)
[2021-04-02] MEDS: CARVEDILOL 12.5 MG TABLET PO SCH ×2 (08:48→17:27)
[2021-04-02] MEDS: LISINOPRIL 20 MG TABLET PO SCH (08:49)
[2021-04-02] MEDS: QUEtiapine 25 MG TABLET. PO SCH (08:49)
[2021-04-02] MEDS: LORazepam 0.5 MG TABLET PO SCH ×2 (08:49→21:11)
[2021-04-02] MEDS: MULTIVITAMIN with MINERAL TABLET. PO SCH (08:49)
[2021-04-02] MEDS: QUEtiapine 50 MG TABLET. PO SCH (08:49)
[2021-04-02] MEDS: PANTOPRAZOLE 40 MG TABLET. PO SCH (08:49)
[2021-04-02] MEDS: LACTOBACILLUS RHAMNOSUS GG 1 CAPSULE. PO SCH ×2 (08:49→21:11)
[2021-04-02] MEDS: ASCORBIC ACID 500 MG TABLET PO SCH (08:49)
[2021-04-02] MEDS: INSULIN LISPRO 300 UNITS/3 ML VIAL. SQ SCH ×3 (08:57→17:30)
--- NOTE | 2021-04-02 10:56 | NUR ---
Nursing note: Patient in bedroom for morning medications & assessment, meds taken whole. Patient is A/O to self only. Patient is demanding, acts as if she can't do things herself, withdrawn, and frequently requesting misc items. She propels self in w/c, 2 person assist for transfers. Alexander patent with clear yellow urine noted. She is currently She is currently sitting in w/c in her room. Will continue to monitor.
[2021-04-02] MEDS: ACETAMINOPHEN 325 MG TABLET PO PRN (12:37)
[2021-04-02 15:55] VITALS: BP 113/68
[2021-04-02] MEDS: ATORVASTATIN CALCIUM 20 MG TABLET PO SCH (21:11)
--- NOTE | 2021-04-02 22:42 | PDOC ---
Exam Note: Hayden Note: Please also refer to the separate dictated note~for this date of service dictated separately.~Patient seen individually. Discussed the patient with Nursing staff reviewed the chart.~Reviewed interim history and current functioning. Reviewed vital signs,~Labs/ Radiology~and current medications noted below. Continue current treatment with the changes noted in the dictated addendum note Assessment: Vital Signs/I&O: Vital Signs Date Time Temp Pulse Resp B/P (MAP) Pulse Ox O2 Delivery O2 Flow Rate FiO2 04/02/21 17:27 58 113/68 04/02/21 15:55 97.8 20 97 Room Air I & O 04/01/21 04/01/21 04/02/21 15:00 23:00 07:00 Intake Total 480 ml 360 ml Output Total 600 ml 400 ml Balance 480 ml -240 ml -400 ml Labs: Laboratory Tests Test 04/02/21 07:16 04/02/21 11:25 04/02/21 16:35 04/02/21 21:50 Glucose (Fingerstick) 212 mg/dL (70-99) H 177 mg/dL (70-99) H 251 mg/dL (70-99) H 169 mg/dL (70-99) H Current Medications: Meds: Laboratory Tests Test 04/02/21 07:16 04/02/21 11:25 04/02/21 16:35 04/02/21 21:50 Glucose (Fingerstick) 212 mg/dL 177 mg/dL 251 mg/dL 169 mg/dL Current Medications Medications (Trade) Dose Ordered Sig/Lilly Route PRN Reason Start Time Stop Time Status Last Admin Dose Admin Acetaminophen (Tylenol) 650 mg PRN Q6HRS PRN PO MILD PAIN / TEMP > 100.3'F 03/28/21 19:30 04/02/21 12:37 Multi-Ingredient Ointment (Analgesic [place]) 1 billy PRN QID PRN TP MUSCLE PAIN 03/28/21 19:30 Al Hydroxide/Mg Hydroxide (Mylanta Plus Xs) 15 ml PRN AFTMEALHC PRN PO 2ND CHOICE DYSPEPSIA 03/28/21 19:30 Magnesium Hydroxide (Milk Of Magnesia) 2,400 mg PRN QHS PRN PO CONSTIPATION 03/28/21 19:30 Amlodipine Besylate (Norvasc) 10 mg DAILY PO 03/29/21 09:00 04/02/21 08:48 Bismuth Subsalicylate (Pepto-Bismol) 262 mg PRN Q6HRS PRN PO 1ST CHOICE DYSPEPSIA 03/28/21 20:00 Carvedilol (Coreg) 12.5 mg BIDWMEALS PO 03/29/21 08:00 04/02/21 17:27 Glimepiride (Amaryl) 3 mg BIDWMEALS PO 03/29/21 08:00 03/31/21 14:07 DC 03/30/21 17:00 Lisinopril (Prinivil) 20 mg DAILY PO 03/29/21 09:00 04/02/21 08:49 Non-Formulary Medication (Alendronate Sodium ) 70 mg WEEKLY PO 04/04/21 09:00 03/28/21 23:48 DC Ascorbic Acid (Vitamin C) 500 mg DAILY PO 03/29/21 09:00 04/02/21 08:49 Atorvastatin Calcium (Lipitor) 40 mg QHS PO 03/28/21 21:00 04/02/21 21:11 Non-Formulary Medication (Glimepiride ) 1 mg BID PO 03/28/21 21:00 UNV Insulin Glargine (Lantus Syringe) 20 unit DAILYWBKFT SQ 03/29/21 08:00 03/31/21 14:07 DC 03/30/21 09:14 Lactobacillus Rhamnosus (Culturelle) 1 cap BID PO 03/28/21 21:00 04/02/21 21:11 Levothyroxine Sodium (Synthroid) 125 mcg DAILY06 PO 03/29/21 06:00 04/02/21 06:05 Multivitamins/ Calcium (Thera-M Plus) 1 tab DAILY PO 03/29/21 09:00 04/02/21 08:49 Pantoprazole Sodium (Protonix) 40 mg DAILY PO 03/29/21 09:00 04/02/21 08:49 Linagliptin (Tradjenta) 5 mg DAILY PO 03/29/21 09:00 03/31/21 14:07 DC 03/30/21 09:09 Buspirone HCl (Buspar) 10 mg BID PO 03/28/21 21:00 03/29/21 20:13 DC 03/29/21 08:27 Divalproex Sodium (Depakote) 125 mg DAILY PO 03/29/21 09:00 04/01/21 19:42 DC 04/01/21 08:32 Lorazepam (Ativan) 0.5 mg BID PO 03/28/21 21:00 04/02/21 21:11 Quetiapine Fumarate (SEROquel) 25 mg DAILY PO 03/29/21 09:00 04/02/21 08:49 Quetiapine Fumarate (SEROquel) 50 mg DAILY PO 03/29/21 09:00 04/02/21 08:49 Insulin Human Lispro (HumaLOG) 0-7 UNITS TIDWMEALS SQ 03/29/21 08:00 03/28/21 23:36 DC Dextrose (Dextrose 50%-Water Syringe) 12.5 gm PRN Q15MIN PRN IV SEE COMMENTS 03/28/21 23:15 Insulin Human Lispro (HumaLOG) 0-7 UNITS BIDWMEALS SQ 03/29/21 09:00 03/31/21 14:07 DC 03/30/21 17:00 Alendronate Sodium (Fosamax) 70 mg WEEKLYAC PO 04/03/21 07:00 Sertraline HCl (Zoloft) 25 mg DAILY PO 03/30/21 09:00 04/02/21 08:47 Insulin Human Lispro (HumaLOG) 0-7 UNITS TIDAC SQ 03/31/21 16:30 04/02/21 17:30 I have reviewed the current psychotropics carefully including drug interactions. Risk benefit ratio favors no change other than as noted in my dictated progress note. Diagnosis: Problems: (1) Major depressive disorder, recurrent episode (2) Impulse control disorder, unspecified (3) Anxiety disorder, unspecified (4) Mild cognitive impairment VISHAL SWAIN MD Apr 02, 2021 22:42
--- NOTE | 2021-04-03 02:33 | NUR ---
Nursing Note The patient was located in her room for her assessment and medication pass. The patient was alert to name and city. The patient took her medication whole. The patient is currently sleeping in her room.
[2021-04-03] MEDS: LEVOTHYROXINE 125 MCG TABLET PO SCH (05:56)
[2021-04-03 06:01] VITALS: BP 112/47
[2021-04-03] MEDS: ALENDRONATE SODIUM 35 MG TABLET PO SCH (07:00)
[2021-04-03] MEDS: INSULIN LISPRO 300 UNITS/3 ML VIAL. SQ SCH ×3 (07:30→16:30)
[2021-04-03] MEDS: QUEtiapine 50 MG TABLET. PO SCH (08:55)
[2021-04-03] MEDS: MULTIVITAMIN with MINERAL TABLET. PO SCH (08:55)
[2021-04-03] MEDS: ASCORBIC ACID 500 MG TABLET PO SCH (08:55)
[2021-04-03] MEDS: QUEtiapine 25 MG TABLET. PO SCH (08:56)
[2021-04-03] MEDS: LISINOPRIL 20 MG TABLET PO SCH (08:56)
[2021-04-03] MEDS: PANTOPRAZOLE 40 MG TABLET. PO SCH (08:56)
[2021-04-03] MEDS: LORazepam 0.5 MG TABLET PO SCH ×2 (08:56→20:42)
[2021-04-03] MEDS: amLODIPine BESYLATE 10 MG TABLET PO SCH (08:56)
[2021-04-03] MEDS: LACTOBACILLUS RHAMNOSUS GG 1 CAPSULE. PO SCH ×2 (08:56→20:42)
[2021-04-03] MEDS: CARVEDILOL 12.5 MG TABLET PO SCH ×2 (08:57→17:22)
[2021-04-03] MEDS: SERTRALINE 25 MG TABLET. PO SCH (09:00)
[2021-04-03] MEDS: ACETAMINOPHEN 325 MG TABLET PO PRN ×2 (12:09→20:50)
--- NOTE | 2021-04-03 12:26 | NUR ---
Patient states her back is hurting in a scale of 1 to 10 it is an 9. the pain is just dull per patient. Patient received prn Acetaminophen.
--- NOTE | 2021-04-03 13:21 | NUR ---
Patient up in wheelchair most of shift. propel self at times, patient refuse to give self medication but is prompt to do so. Patient is compliant with medication. speech is clear. assist with ADLs. Is withdrawn to room. says back is feeling better.Hearing is adequate , wears glasses.
[2021-04-03 16:39] VITALS: BP 148/69
[2021-04-03] MEDS: ATORVASTATIN CALCIUM 20 MG TABLET PO SCH (20:42)
--- NOTE | 2021-04-03 22:42 | PDOC ---
Exam Note: Hayden Note: This note is a late entry for 04/01/2021 covers elements not covered in my initial note. Subjective: The patient was seen individually in the evening of 04/01/2021 with Rik GARCIA, discussed and reviewed the chart. The patient slept 8 hours previous night. She has been irritable, demanding, somewhat grandiose at times. Review of Systems: Ambulation impaired in wheelchair. No CV, , pulmonary, eye system symptoms on review. Mental Status Exam: The patient is reasonably oriented. I met with her in her room. Speech coherent has some latency. Often response is monosyllabic. Abstraction fair. Computation impaired. Language function intact. Mood and affect remains somewhat anxious and grandiose. Laboratory Data: Reviewed. Impression: Major depressive disorder. Anxiety disorder unspecified. Impulse control disorder. Mild cognitive impairment. Plan: Continue psychotropics from initial note. Assessment: Vital Signs/I&O: Vital Signs Date Time Temp Pulse Resp B/P (MAP) Pulse Ox O2 Delivery O2 Flow Rate FiO2 04/03/21 17:22 68 148/69 04/03/21 16:39 98.1 18 97 04/03/21 06:01 Room Air I & O 04/02/21 04/02/21 04/03/21 15:00 23:00 07:00 Intake Total 360 ml 480 ml 120 ml Output Total 300 ml Balance 360 ml 180 ml 120 ml Labs: Laboratory Tests Test 04/03/21 07:29 04/03/21 11:52 04/03/21 16:47 04/03/21 19:13 Glucose (Fingerstick) 186 mg/dL (70-99) H 167 mg/dL (70-99) H 205 mg/dL (70-99) H 232 mg/dL (70-99) H Current Medications: Meds: Laboratory Tests Test 04/03/21 07:29 04/03/21 11:52 04/03/21 16:47 04/03/21 19:13 Glucose (Fingerstick) 186 mg/dL 167 mg/dL 205 mg/dL 232 mg/dL Current Medications Medications (Trade) Dose Ordered Sig/Lilly Route PRN Reason Start Time Stop Time Status Last Admin Dose Admin Acetaminophen (Tylenol) 650 mg PRN Q6HRS PRN PO MILD PAIN / TEMP > 100.3'F 03/28/21 19:30 04/03/21 20:50 Multi-Ingredient Ointment (Analgesic [place]) 1 billy PRN QID PRN TP MUSCLE PAIN 03/28/21 19:30 Al Hydroxide/Mg Hydroxide (Mylanta Plus Xs) 15 ml PRN AFTMEALHC PRN PO 2ND CHOICE DYSPEPSIA 03/28/21 19:30 Magnesium Hydroxide (Milk Of Magnesia) 2,400 mg PRN QHS PRN PO CONSTIPATION 03/28/21 19:30 Amlodipine Besylate (Norvasc) 10 mg DAILY PO 03/29/21 09:00 04/03/21 08:56 Bismuth Subsalicylate (Pepto-Bismol) 262 mg PRN Q6HRS PRN PO 1ST CHOICE DYSPEPSIA 03/28/21 20:00 Carvedilol (Coreg) 12.5 mg BIDWMEALS PO 03/29/21 08:00 04/03/21 17:22 Glimepiride (Amaryl) 3 mg BIDWMEALS PO 03/29/21 08:00 03/31/21 14:07 DC 03/30/21 17:00 Lisinopril (Prinivil) 20 mg DAILY PO 03/29/21 09:00 04/03/21 08:56 Non-Formulary Medication (Alendronate Sodium ) 70 mg WEEKLY PO 04/04/21 09:00 03/28/21 23:48 DC Ascorbic Acid (Vitamin C) 500 mg DAILY PO 03/29/21 09:00 04/03/21 08:55 Atorvastatin Calcium (Lipitor) 40 mg QHS PO 03/28/21 21:00 04/03/21 20:42 Non-Formulary Medication (Glimepiride ) 1 mg BID PO 03/28/21 21:00 UNV Insulin Glargine (Lantus Syringe) 20 unit DAILYWBKFT SQ 03/29/21 08:00 03/31/21 14:07 DC 03/30/21 09:14 Lactobacillus Rhamnosus (Culturelle) 1 cap BID PO 03/28/21 21:00 04/03/21 20:42 Levothyroxine Sodium (Synthroid) 125 mcg DAILY06 PO 03/29/21 06:00 04/03/21 05:56 Multivitamins/ Calcium (Thera-M Plus) 1 tab DAILY PO 03/29/21 09:00 04/03/21 08:55 Pantoprazole Sodium (Protonix) 40 mg DAILY PO 03/29/21 09:00 04/03/21 08:56 Linagliptin (Tradjenta) 5 mg DAILY PO 03/29/21 09:00 03/31/21 14:07 DC 03/30/21 09:09 Buspirone HCl (Buspar) 10 mg BID PO 03/28/21 21:00 03/29/21 20:13 DC 03/29/21 08:27 Divalproex Sodium (Depakote) 125 mg DAILY PO 03/29/21 09:00 04/01/21 19:42 DC 04/01/21 08:32 Lorazepam (Ativan) 0.5 mg BID PO 03/28/21 21:00 04/03/21 20:42 Quetiapine Fumarate (SEROquel) 25 mg DAILY PO 03/29/21 09:00 04/03/21 08:56 Quetiapine Fumarate (SEROquel) 50 mg DAILY PO 03/29/21 09:00 04/03/21 08:55 Insulin Human Lispro (HumaLOG) 0-7 UNITS TIDWMEALS SQ 03/29/21 08:00 03/28/21 23:36 DC Dextrose (Dextrose 50%-Water Syringe) 12.5 gm PRN Q15MIN PRN IV SEE COMMENTS 03/28/21 23:15 Insulin Human Lispro (HumaLOG) 0-7 UNITS BIDWMEALS SQ 03/29/21 09:00 03/31/21 14:07 DC 03/30/21 17:00 Alendronate Sodium (Fosamax) 70 mg WEEKLYAC PO 04/03/21 07:00 04/03/21 07:00 Sertraline HCl (Zoloft) 25 mg DAILY PO 03/30/21 09:00 04/03/21 09:00 Insulin Human Lispro (HumaLOG) 0-7 UNITS TIDAC SQ 03/31/21 16:30 04/03/21 16:30 Current Medications Medications (Trade) Dose Ordered Sig/Lilly Route PRN Reason Start Time Stop Time Status Last Admin Dose Admin Alendronate Sodium (Fosamax) 70 mg WEEKLYAC PO 04/03/21 07:00 04/03/21 07:00 I have reviewed the current psychotropics carefully including drug interactions. Risk benefit ratio favors no change other than as noted in my dictated progress note. Diagnosis: Problems: (1) Major depressive disorder, recurrent episode (2) Impulse control disorder, unspecified (3) Anxiety disorder, unspecified (4) Mild cognitive impairment VISHAL SWAIN MD Apr 03, 2021 22:42
--- NOTE | 2021-04-03 22:43 | PDOC ---
Exam Note: Hayden Note: Please also refer to the separate dictated note~for this date of service dictated separately.~Patient seen individually. Discussed the patient with Nursing staff reviewed the chart.~Reviewed interim history and current functioning. Reviewed vital signs,~Labs/ Radiology~and current medications noted below. Continue current treatment with the changes noted in the dictated addendum note Assessment: Vital Signs/I&O: Vital Signs Date Time Temp Pulse Resp B/P (MAP) Pulse Ox O2 Delivery O2 Flow Rate FiO2 04/03/21 17:22 68 148/69 04/03/21 16:39 98.1 18 97 04/03/21 06:01 Room Air I & O 04/02/21 04/02/21 04/03/21 15:00 23:00 07:00 Intake Total 360 ml 480 ml 120 ml Output Total 300 ml Balance 360 ml 180 ml 120 ml Labs: Laboratory Tests Test 04/03/21 07:29 04/03/21 11:52 04/03/21 16:47 04/03/21 19:13 Glucose (Fingerstick) 186 mg/dL (70-99) H 167 mg/dL (70-99) H 205 mg/dL (70-99) H 232 mg/dL (70-99) H Current Medications: Meds: Current Medications Medications (Trade) Dose Ordered Sig/Lilly Route PRN Reason Start Time Stop Time Status Last Admin Dose Admin Alendronate Sodium (Fosamax) 70 mg WEEKLYAC PO 04/03/21 07:00 04/03/21 07:00 I have reviewed the current psychotropics carefully including drug interactions. Risk benefit ratio favors no change other than as noted in my dictated progress note. Diagnosis: Problems: (1) Major depressive disorder, recurrent episode (2) Impulse control disorder, unspecified (3) Anxiety disorder, unspecified (4) Mild cognitive impairment VISHAL SWAIN MD Apr 03, 2021 22:43
--- NOTE | 2021-04-04 00:44 | NUR ---
Last evening pt [facility], she took pills whole 2 at a time off a spoon with some prompting. She called staff several times to make minor changes in HOB elevation and acts helpless at times. Pt encouraged to adjust her position in bed by herself to increase comfort. PRN Tylenol given for back pain.
[2021-04-04] MEDS: LEVOTHYROXINE 125 MCG TABLET PO SCH (06:20)
[2021-04-04 06:32] VITALS: BP 124/54
[2021-04-04] MEDS: INSULIN LISPRO 300 UNITS/3 ML VIAL. SQ SCH ×3 (07:30→16:30)
[2021-04-04] MEDS: QUEtiapine 50 MG TABLET. PO SCH (08:36)
[2021-04-04] MEDS: MULTIVITAMIN with MINERAL TABLET. PO SCH (08:37)
[2021-04-04] MEDS: SERTRALINE 25 MG TABLET. PO SCH (08:37)
[2021-04-04] MEDS: CARVEDILOL 12.5 MG TABLET PO SCH ×2 (08:37→17:00)
[2021-04-04] MEDS: QUEtiapine 25 MG TABLET. PO SCH (08:37)
[2021-04-04] MEDS: LISINOPRIL 20 MG TABLET PO SCH (08:38)
[2021-04-04] MEDS: amLODIPine BESYLATE 10 MG TABLET PO SCH (08:38)
[2021-04-04] MEDS: LACTOBACILLUS RHAMNOSUS GG 1 CAPSULE. PO SCH ×2 (08:38→20:07)
[2021-04-04] MEDS: PANTOPRAZOLE 40 MG TABLET. PO SCH (08:38)
[2021-04-04] MEDS: LORazepam 0.5 MG TABLET PO SCH ×2 (08:38→20:07)
[2021-04-04] MEDS: ASCORBIC ACID 500 MG TABLET PO SCH (08:38)
[2021-04-04] MEDS ORDERED: NON FORMULARY ITEM (Alendronate Sodium 70 MG) PO SCH (09:00)
--- NOTE | 2021-04-04 11:09 | NUR ---
WEEKLY ACTIVITY THERAPY NOTE Date of Admission: 03/28/21 Date of AT Assessment: 03/29 Precipitating behaviors that initiated intake and admission:verbally aggressive towards staff and is physically aggressive during cares and agitated. Goal aimed: increase socialization and engagement Initial Goal: Pt will participate in at least five individual or group Activity Therapy sessions per week Weekly progress towards goal: moving to group therapy side on 04/04 Group participation level: 1:1 failed attempt Weekly highlights: no participation Behaviors observed: dismissive, demanding Beneficial adaptations: movie Addendum: 04/04/21 at 1120 by ROBERTA GENAO ACT Plan: no change to goal-move to group therapy side 04/04
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
--- NOTE | 2021-04-04 14:17 | NUR ---
Nurse Notes Patient up in wheelchair most of shift. Patient speech is clear. Patient with right sided weakness, Alexander intact with yellow urine. Assist with ADLs. medication compliant takes all medication whole. Difficult to redirect. New medication order for Zoloft 50 mg daily and Zydis 7.5 mg prn 2qh.
[2021-04-04 16:35] VITALS: BP 110/50
[2021-04-04] MEDS: ATORVASTATIN CALCIUM 20 MG TABLET PO SCH (20:07)
--- NOTE | 2021-04-04 22:09 | PDOC ---
Exam Note: Hayden Note: Please also refer to the separate dictated note~for this date of service dictated separately.~Patient seen individually. Discussed the patient with Nursing staff reviewed the chart.~Reviewed interim history and current functioning. Reviewed vital signs,~Labs/ Radiology~and current medications noted below. Continue current treatment with the changes noted in the dictated addendum note Assessment: Vital Signs/I&O: Vital Signs Date Time Temp Pulse Resp B/P (MAP) Pulse Ox O2 Delivery O2 Flow Rate FiO2 04/04/21 17:00 67 110/50 04/04/21 16:35 97.8 16 96 04/04/21 06:32 Room Air I & O 04/03/21 04/03/21 04/04/21 15:00 23:00 07:00 Intake Total 600 ml 360 ml Output Total 600 ml 850 ml Balance 600 ml -240 ml -850 ml Labs: Laboratory Tests Test 04/04/21 07:36 04/04/21 11:22 04/04/21 16:43 04/04/21 19:18 Glucose (Fingerstick) 168 mg/dL (70-99) H 237 mg/dL (70-99) H 159 mg/dL (70-99) H 141 mg/dL (70-99) H Current Medications: Meds: Laboratory Tests Test 04/04/21 07:36 04/04/21 11:22 04/04/21 16:43 04/04/21 19:18 Glucose (Fingerstick) 168 mg/dL 237 mg/dL 159 mg/dL 141 mg/dL Current Medications Medications (Trade) Dose Ordered Sig/Lilly Route PRN Reason Start Time Stop Time Status Last Admin Dose Admin Acetaminophen (Tylenol) 650 mg PRN Q6HRS PRN PO MILD PAIN / TEMP > 100.3'F 03/28/21 19:30 04/03/21 20:50 Multi-Ingredient Ointment (Analgesic [place]) 1 billy PRN QID PRN TP MUSCLE PAIN 03/28/21 19:30 Al Hydroxide/Mg Hydroxide (Mylanta Plus Xs) 15 ml PRN AFTMEALHC PRN PO 2ND CHOICE DYSPEPSIA 03/28/21 19:30 Magnesium Hydroxide (Milk Of Magnesia) 2,400 mg PRN QHS PRN PO CONSTIPATION 03/28/21 19:30 Amlodipine Besylate (Norvasc) 10 mg DAILY PO 03/29/21 09:00 04/04/21 08:38 Bismuth Subsalicylate (Pepto-Bismol) 262 mg PRN Q6HRS PRN PO 1ST CHOICE DYSPEPSIA 03/28/21 20:00 Carvedilol (Coreg) 12.5 mg BIDWMEALS PO 03/29/21 08:00 04/04/21 17:00 Glimepiride (Amaryl) 3 mg BIDWMEALS PO 03/29/21 08:00 03/31/21 14:07 DC 03/30/21 17:00 Lisinopril (Prinivil) 20 mg DAILY PO 03/29/21 09:00 04/04/21 08:38 Non-Formulary Medication (Alendronate Sodium ) 70 mg WEEKLY PO 04/04/21 09:00 03/28/21 23:48 DC Ascorbic Acid (Vitamin C) 500 mg DAILY PO 03/29/21 09:00 04/04/21 08:38 Atorvastatin Calcium (Lipitor) 40 mg QHS PO 03/28/21 21:00 04/04/21 20:07 Non-Formulary Medication (Glimepiride ) 1 mg BID PO 03/28/21 21:00 UNV Insulin Glargine (Lantus Syringe) 20 unit DAILYWBKFT SQ 03/29/21 08:00 03/31/21 14:07 DC 03/30/21 09:14 Lactobacillus Rhamnosus (Culturelle) 1 cap BID PO 03/28/21 21:00 04/04/21 20:07 Levothyroxine Sodium (Synthroid) 125 mcg DAILY06 PO 03/29/21 06:00 04/04/21 06:20 Multivitamins/ Calcium (Thera-M Plus) 1 tab DAILY PO 03/29/21 09:00 04/04/21 08:37 Pantoprazole Sodium (Protonix) 40 mg DAILY PO 03/29/21 09:00 04/04/21 08:38 Linagliptin (Tradjenta) 5 mg DAILY PO 03/29/21 09:00 03/31/21 14:07 DC 03/30/21 09:09 Buspirone HCl (Buspar) 10 mg BID PO 03/28/21 21:00 03/29/21 20:13 DC 03/29/21 08:27 Divalproex Sodium (Depakote) 125 mg DAILY PO 03/29/21 09:00 04/01/21 19:42 DC 04/01/21 08:32 Lorazepam (Ativan) 0.5 mg BID PO 03/28/21 21:00 04/04/21 20:07 Quetiapine Fumarate (SEROquel) 25 mg DAILY PO 03/29/21 09:00 04/04/21 08:37 Quetiapine Fumarate (SEROquel) 50 mg DAILY PO 03/29/21 09:00 04/04/21 08:36 Insulin Human Lispro (HumaLOG) 0-7 UNITS TIDWMEALS SQ 03/29/21 08:00 03/28/21 23:36 DC Dextrose (Dextrose 50%-Water Syringe) 12.5 gm PRN Q15MIN PRN IV SEE COMMENTS 03/28/21 23:15 Insulin Human Lispro (HumaLOG) 0-7 UNITS BIDWMEALS SQ 03/29/21 09:00 03/31/21 14:07 DC 03/30/21 17:00 Alendronate Sodium (Fosamax) 70 mg WEEKLYAC PO 04/03/21 07:00 04/03/21 07:00 Sertraline HCl (Zoloft) 25 mg DAILY PO 03/30/21 09:00 04/04/21 11:28 DC 04/04/21 08:37 Insulin Human Lispro (HumaLOG) 0-7 UNITS TIDAC SQ 03/31/21 16:30 04/04/21 16:30 Sertraline HCl (Zoloft) 50 mg DAILY PO 04/05/21 09:00 Olanzapine (ZyPREXA ZYDIS) 7.5 mg PRN Q2HR PRN PO PSYCHOSIS 04/04/21 11:30 04/04/21 20:02 DC Olanzapine (ZyPREXA ZYDIS) 2.5 mg PRN Q2HR PRN PO PSYCHOSIS 04/04/21 20:00 I have reviewed the current psychotropics carefully including drug interactions. Risk benefit ratio favors no change other than as noted in my dictated progress note. Diagnosis: Problems: (1) Major depressive disorder, recurrent episode (2) Impulse control disorder, unspecified (3) Anxiety disorder, unspecified (4) Mild cognitive impairment VISHAL SWAIN MD Apr 04, 2021 22:09
[2021-04-05] MEDS: LEVOTHYROXINE 125 MCG TABLET PO SCH (06:00)
[2021-04-05 06:10] VITALS: BP 129/68
--- NOTE | 2021-04-05 06:18 | PDOC ---
Exam Note: Hayden Note: This note is a late entry for 04/02/2021 covers elements not covered in my initial note. Subjective: The patient was seen individually in the evening of 04/02/2021 with Rik GARCIA, discussed and reviewed the chart. The patient slept 6-1/2 hours previous night. She has been irritable though she is compliant. As I met with her individually in her room she was talking about how much she liked the environment at [facility] as compared to here and wanted to return. We talked about symptoms prompting and behaviors prompting admission including being verbally aggressive towards staff at [facility], being physically aggressive during cares and agitated. She seems somewhat insightful during the individual visit. Review of Systems: Ambulation impaired in wheelchair. No CV, , pulmonary, e ye system symptoms on review. Mental Status Exam: The patient is reasonably oriented. Speech coherent. Abstraction fair. Computation impaired, slightly insightful about what prompted her admission as noted above. Language function intact. Mood and affect somewhat dysphoric and anxious. No suicidal or homicidal ideation. Laboratory Data: Reviewed. Impression: Major depressive disorder. Anxiety disorder unspecified. Impulse control disorder. Mild cognitive impairment. Plan: Continue psychotropics from initial note. She remains on Zoloft and Seroquel along with Ativan 0.5 mg b.i.d. We may need to increase Zoloft grad ually. Assessment: Vital Signs/I&O: Vital Signs Date Time Temp Pulse Resp B/P (MAP) Pulse Ox O2 Delivery O2 Flow Rate FiO2 04/05/21 06:10 99.1 67 12 129/68 (88) 99 04/04/21 06:32 Room Air I & O 04/04/21 04/04/21 04/05/21 15:00 23:00 07:00 Intake Total 120 ml 120 ml Output Total 450 ml 550 ml Balance 120 ml -330 ml -550 ml Labs: Laboratory Tests Test 04/04/21 07:36 04/04/21 11:22 04/04/21 16:43 04/04/21 19:18 Glucose (Fingerstick) 168 mg/dL (70-99) H 237 mg/dL (70-99) H 159 mg/dL (70-99) H 141 mg/dL (70-99) H Current Medications: Meds: Laboratory Tests Test 04/04/21 07:36 04/04/21 11:22 04/04/21 16:43 04/04/21 19:18 Glucose (Fingerstick) 168 mg/dL 237 mg/dL 159 mg/dL 141 mg/dL Current Medications Medications (Trade) Dose Ordered Sig/Lilly Route PRN Reason Start Time Stop Time Status Last Admin Dose Admin Acetaminophen (Tylenol) 650 mg PRN Q6HRS PRN PO MILD PAIN / TEMP > 100.3'F 03/28/21 19:30 04/03/21 20:50 Multi-Ingredient Ointment (Analgesic [place]) 1 billy PRN QID PRN TP MUSCLE PAIN 03/28/21 19:30 Al Hydroxide/Mg Hydroxide (Mylanta Plus Xs) 15 ml PRN AFTMEALHC PRN PO 2ND CHOICE DYSPEPSIA 03/28/21 19:30 Magnesium Hydroxide (Milk Of Magnesia) 2,400 mg PRN QHS PRN PO CONSTIPATION 03/28/21 19:30 Amlodipine Besylate (Norvasc) 10 mg DAILY PO 03/29/21 09:00 04/04/21 08:38 Bismuth Subsalicylate (Pepto-Bismol) 262 mg PRN Q6HRS PRN PO 1ST CHOICE DYSPEPSIA 03/28/21 20:00 Carvedilol (Coreg) 12.5 mg BIDWMEALS PO 03/29/21 08:00 04/04/21 17:00 Glimepiride (Amaryl) 3 mg BIDWMEALS PO 03/29/21 08:00 03/31/21 14:07 DC 03/30/21 17:00 Lisinopril (Prinivil) 20 mg DAILY PO 03/29/21 09:00 04/04/21 08:38 Non-Formulary Medication (Alendronate Sodium ) 70 mg WEEKLY PO 04/04/21 09:00 03/28/21 23:48 DC Ascorbic Acid (Vitamin C) 500 mg DAILY PO 03/29/21 09:00 04/04/21 08:38 Atorvastatin Calcium (Lipitor) 40 mg QHS PO 03/28/21 21:00 04/04/21 20:07 Non-Formulary Medication (Glimepiride ) 1 mg BID PO 03/28/21 21:00 UNV Insulin Glargine (Lantus Syringe) 20 unit DAILYWBKFT SQ 03/29/21 08:00 03/31/21 14:07 DC 03/30/21 09:14 Lactobacillus Rhamnosus (Culturelle) 1 cap BID PO 03/28/21 21:00 04/04/21 20:07 Levothyroxine Sodium (Synthroid) 125 mcg DAILY06 PO 03/29/21 06:00 04/05/21 06:00 Multivitamins/ Calcium (Thera-M Plus) 1 tab DAILY PO 03/29/21 09:00 04/04/21 08:37 Pantoprazole Sodium (Protonix) 40 mg DAILY PO 03/29/21 09:00 04/04/21 08:38 Linagliptin (Tradjenta) 5 mg DAILY PO 03/29/21 09:00 03/31/21 14:07 DC 03/30/21 09:09 Buspirone HCl (Buspar) 10 mg BID PO 03/28/21 21:00 03/29/21 20:13 DC 03/29/21 08:27 Divalproex Sodium (Depakote) 125 mg DAILY PO 03/29/21 09:00 04/01/21 19:42 DC 04/01/21 08:32 Lorazepam (Ativan) 0.5 mg BID PO 03/28/21 21:00 04/04/21 20:07 Quetiapine Fumarate (SEROquel) 25 mg DAILY PO 03/29/21 09:00 04/04/21 08:37 Quetiapine Fumarate (SEROquel) 50 mg DAILY PO 03/29/21 09:00 04/04/21 08:36 Insulin Human Lispro (HumaLOG) 0-7 UNITS TIDWMEALS SQ 03/29/21 08:00 03/28/21 23:36 DC Dextrose (Dextrose 50%-Water Syringe) 12.5 gm PRN Q15MIN PRN IV SEE COMMENTS 03/28/21 23:15 Insulin Human Lispro (HumaLOG) 0-7 UNITS BIDWMEALS SQ 03/29/21 09:00 03/31/21 14:07 DC 03/30/21 17:00 Alendronate Sodium (Fosamax) 70 mg WEEKLYAC PO 04/03/21 07:00 04/03/21 07:00 Sertraline HCl (Zoloft) 25 mg DAILY PO 03/30/21 09:00 04/04/21 11:28 DC 04/04/21 08:37 Insulin Human Lispro (HumaLOG) 0-7 UNITS TIDAC SQ 03/31/21 16:30 04/04/21 16:30 Sertraline HCl (Zoloft) 50 mg DAILY PO 04/05/21 09:00 Olanzapine (ZyPREXA ZYDIS) 7.5 mg PRN Q2HR PRN PO PSYCHOSIS 04/04/21 11:30 04/04/21 20:02 DC Olanzapine (ZyPREXA ZYDIS) 2.5 mg PRN Q2HR PRN PO PSYCHOSIS 04/04/21 20:00 I have reviewed the current psychotropics carefully including drug interactions. Risk benefit ratio favors no change other than as noted in my dictated progress note. Diagnosis: Problems: (1) Major depressive disorder, recurrent episode (2) Impulse control disorder, unspecified (3) Anxiety disorder, unspecified (4) Mild cognitive impairment VISHAL SWAIN MD Apr 05, 2021 06:18
--- NOTE | 2021-04-05 06:28 | PDOC ---
Exam Note: Hayden Note: This note is a late entry for 04/03/2021 covers elements not covered in my initial note. Subjective: The patient was seen individually in the evening of 04/03/2021 with Lynn GARCIA, discussed and reviewed the chart. The patient slept 6-1/2 hours previous night. She was cooperative on medications and somewhat demanding and entitled per nursing report. She needs prompting to take her medications. Review of Systems: Ambulation impaired in wheelchair. No CV, , pulmonary, eye system symptoms on review. Mental Status Exam: The patient is reasonably oriented. Speech coherent. Abstraction fair. Computation impaired. Language function intact. Mood and affect improved. Laboratory Data: Reviewed. Impression: Major depressive disorder. Anxiety disorder unspecified. Impulse control disorder. Mild cognitive impairment. Plan: Continue psychotropics from initial note. Assessment: Vital Signs/I&O: Vital Signs Date Time Temp Pulse Resp B/P (MAP) Pulse Ox O2 Delivery O2 Flow Rate FiO2 04/05/21 06:10 99.1 67 12 129/68 (88) 99 04/04/21 06:32 Room Air I & O 04/04/21 04/04/21 04/05/21 15:00 23:00 07:00 Intake Total 120 ml 120 ml Output Total 450 ml 550 ml Balance 120 ml -330 ml -550 ml Labs: Laboratory Tests Test 04/04/21 07:36 04/04/21 11:22 04/04/21 16:43 04/04/21 19:18 Glucose (Fingerstick) 168 mg/dL (70-99) H 237 mg/dL (70-99) H 159 mg/dL (70-99) H 141 mg/dL (70-99) H Current Medications: Meds: Laboratory Tests Test 04/04/21 07:36 04/04/21 11:22 04/04/21 16:43 04/04/21 19:18 Glucose (Fingerstick) 168 mg/dL 237 mg/dL 159 mg/dL 141 mg/dL Current Medications Medications (Trade) Dose Ordered Sig/Lilly Route PRN Reason Start Time Stop Time Status Last Admin Dose Admin Acetaminophen (Tylenol) 650 mg PRN Q6HRS PRN PO MILD PAIN / TEMP > 100.3'F 03/28/21 19:30 04/03/21 20:50 Multi-Ingredient Ointment (Analgesic [place]) 1 billy PRN QID PRN TP MUSCLE PAIN 03/28/21 19:30 Al Hydroxide/Mg Hydroxide (Mylanta Plus Xs) 15 ml PRN AFTMEALHC PRN PO 2ND CHOICE DYSPEPSIA 03/28/21 19:30 Magnesium Hydroxide (Milk Of Magnesia) 2,400 mg PRN QHS PRN PO CONSTIPATION 03/28/21 19:30 Amlodipine Besylate (Norvasc) 10 mg DAILY PO 03/29/21 09:00 04/04/21 08:38 Bismuth Subsalicylate (Pepto-Bismol) 262 mg PRN Q6HRS PRN PO 1ST CHOICE DYSPEPSIA 03/28/21 20:00 Carvedilol (Coreg) 12.5 mg BIDWMEALS PO 03/29/21 08:00 04/04/21 17:00 Glimepiride (Amaryl) 3 mg BIDWMEALS PO 03/29/21 08:00 03/31/21 14:07 DC 03/30/21 17:00 Lisinopril (Prinivil) 20 mg DAILY PO 03/29/21 09:00 04/04/21 08:38 Non-Formulary Medication (Alendronate Sodium ) 70 mg WEEKLY PO 04/04/21 09:00 03/28/21 23:48 DC Ascorbic Acid (Vitamin C) 500 mg DAILY PO 03/29/21 09:00 04/04/21 08:38 Atorvastatin Calcium (Lipitor) 40 mg QHS PO 03/28/21 21:00 04/04/21 20:07 Non-Formulary Medication (Glimepiride ) 1 mg BID PO 03/28/21 21:00 UNV Insulin Glargine (Lantus Syringe) 20 unit DAILYWBKFT SQ 03/29/21 08:00 03/31/21 14:07 DC 03/30/21 09:14 Lactobacillus Rhamnosus (Culturelle) 1 cap BID PO 03/28/21 21:00 04/04/21 20:07 Levothyroxine Sodium (Synthroid) 125 mcg DAILY06 PO 03/29/21 06:00 04/05/21 06:00 Multivitamins/ Calcium (Thera-M Plus) 1 tab DAILY PO 03/29/21 09:00 04/04/21 08:37 Pantoprazole Sodium (Protonix) 40 mg DAILY PO 03/29/21 09:00 04/04/21 08:38 Linagliptin (Tradjenta) 5 mg DAILY PO 03/29/21 09:00 03/31/21 14:07 DC 03/30/21 09:09 Buspirone HCl (Buspar) 10 mg BID PO 03/28/21 21:00 03/29/21 20:13 DC 03/29/21 08:27 Divalproex Sodium (Depakote) 125 mg DAILY PO 03/29/21 09:00 04/01/21 19:42 DC 04/01/21 08:32 Lorazepam (Ativan) 0.5 mg BID PO 03/28/21 21:00 04/04/21 20:07 Quetiapine Fumarate (SEROquel) 25 mg DAILY PO 03/29/21 09:00 04/04/21 08:37 Quetiapine Fumarate (SEROquel) 50 mg DAILY PO 03/29/21 09:00 04/04/21 08:36 Insulin Human Lispro (HumaLOG) 0-7 UNITS TIDWMEALS SQ 03/29/21 08:00 03/28/21 23:36 DC Dextrose (Dextrose 50%-Water Syringe) 12.5 gm PRN Q15MIN PRN IV SEE COMMENTS 03/28/21 23:15 Insulin Human Lispro (HumaLOG) 0-7 UNITS BIDWMEALS SQ 03/29/21 09:00 03/31/21 14:07 DC 03/30/21 17:00 Alendronate Sodium (Fosamax) 70 mg WEEKLYAC PO 04/03/21 07:00 04/03/21 07:00 Sertraline HCl (Zoloft) 25 mg DAILY PO 03/30/21 09:00 04/04/21 11:28 DC 04/04/21 08:37 Insulin Human Lispro (HumaLOG) 0-7 UNITS TIDAC SQ 03/31/21 16:30 04/04/21 16:30 Sertraline HCl (Zoloft) 50 mg DAILY PO 04/05/21 09:00 Olanzapine (ZyPREXA ZYDIS) 7.5 mg PRN Q2HR PRN PO PSYCHOSIS 04/04/21 11:30 04/04/21 20:02 DC Olanzapine (ZyPREXA ZYDIS) 2.5 mg PRN Q2HR PRN PO PSYCHOSIS 04/04/21 20:00 I have reviewed the current psychotropics carefully including drug interactions. Risk benefit ratio favors no change other than as noted in my dictated progress note. Diagnosis: Problems: (1) Major depressive disorder, recurrent episode (2) Impulse control disorder, unspecified (3) Anxiety disorder, unspecified (4) Mild cognitive impairment VISHAL SWAIN MD Apr 05, 2021 06:27
--- NOTE | 2021-04-05 06:41 | PDOC ---
Exam Note: Hayden Note: This note is a late entry for 04/04/2021 covers elements not covered in my initial note. Subjective: The patient was seen individually in the evening of 04/04/2021 with Paulino GARCIA, discussed and reviewed the chart. The patient slept 7 hours previous night. She has been demanding, somewhat anxious at times. We will add Zyprexa 2.5 mg q.2h. p.r.n. psychosis and agitation, max 7.5 mg in 24 hours. Review of Systems: Gait unsteady in wheelchair. No CV, , pulmonary, eye system symptoms on review. Mental Status Exam: The patient is reasonably oriented. I met with her in her room. Speech coherent. Abstraction fair. Computation impaired. Language function intact. Mood and affect improved. Laboratory Data: Reviewed. Impression: Major depressive disorder. Anxiety disorder unspecified. Impulse control disorder. Mild cognitive impairment. Plan: Continue psychotropics from initial note. Assessment: Vital Signs/I&O: Vital Signs Date Time Temp Pulse Resp B/P (MAP) Pulse Ox O2 Delivery O2 Flow Rate FiO2 04/05/21 06:10 99.1 67 12 129/68 (88) 99 04/04/21 06:32 Room Air I & O 04/04/21 04/04/21 04/05/21 15:00 23:00 07:00 Intake Total 120 ml 120 ml Output Total 450 ml 550 ml Balance 120 ml -330 ml -550 ml Labs: Laboratory Tests Test 04/04/21 07:36 04/04/21 11:22 04/04/21 16:43 04/04/21 19:18 Glucose (Fingerstick) 168 mg/dL (70-99) H 237 mg/dL (70-99) H 159 mg/dL (70-99) H 141 mg/dL (70-99) H Current Medications: Meds: Laboratory Tests Test 04/04/21 07:36 04/04/21 11:22 04/04/21 16:43 04/04/21 19:18 Glucose (Fingerstick) 168 mg/dL 237 mg/dL 159 mg/dL 141 mg/dL Current Medications Medications (Trade) Dose Ordered Sig/Lilly Route PRN Reason Start Time Stop Time Status Last Admin Dose Admin Acetaminophen (Tylenol) 650 mg PRN Q6HRS PRN PO MILD PAIN / TEMP > 100.3'F 03/28/21 19:30 04/03/21 20:50 Multi-Ingredient Ointment (Analgesic [place]) 1 billy PRN QID PRN TP MUSCLE PAIN 03/28/21 19:30 Al Hydroxide/Mg Hydroxide (Mylanta Plus Xs) 15 ml PRN AFTMEALHC PRN PO 2ND CHOICE DYSPEPSIA 03/28/21 19:30 Magnesium Hydroxide (Milk Of Magnesia) 2,400 mg PRN QHS PRN PO CONSTIPATION 03/28/21 19:30 Amlodipine Besylate (Norvasc) 10 mg DAILY PO 03/29/21 09:00 04/04/21 08:38 Bismuth Subsalicylate (Pepto-Bismol) 262 mg PRN Q6HRS PRN PO 1ST CHOICE DYSPEPSIA 03/28/21 20:00 Carvedilol (Coreg) 12.5 mg BIDWMEALS PO 03/29/21 08:00 04/04/21 17:00 Glimepiride (Amaryl) 3 mg BIDWMEALS PO 03/29/21 08:00 03/31/21 14:07 DC 03/30/21 17:00 Lisinopril (Prinivil) 20 mg DAILY PO 03/29/21 09:00 04/04/21 08:38 Non-Formulary Medication (Alendronate Sodium ) 70 mg WEEKLY PO 04/04/21 09:00 03/28/21 23:48 DC Ascorbic Acid (Vitamin C) 500 mg DAILY PO 03/29/21 09:00 04/04/21 08:38 Atorvastatin Calcium (Lipitor) 40 mg QHS PO 03/28/21 21:00 04/04/21 20:07 Non-Formulary Medication (Glimepiride ) 1 mg BID PO 03/28/21 21:00 UNV Insulin Glargine (Lantus Syringe) 20 unit DAILYWBKFT SQ 03/29/21 08:00 03/31/21 14:07 DC 03/30/21 09:14 Lactobacillus Rhamnosus (Culturelle) 1 cap BID PO 03/28/21 21:00 04/04/21 20:07 Levothyroxine Sodium (Synthroid) 125 mcg DAILY06 PO 03/29/21 06:00 04/05/21 06:00 Multivitamins/ Calcium (Thera-M Plus) 1 tab DAILY PO 03/29/21 09:00 04/04/21 08:37 Pantoprazole Sodium (Protonix) 40 mg DAILY PO 03/29/21 09:00 04/04/21 08:38 Linagliptin (Tradjenta) 5 mg DAILY PO 03/29/21 09:00 03/31/21 14:07 DC 03/30/21 09:09 Buspirone HCl (Buspar) 10 mg BID PO 03/28/21 21:00 03/29/21 20:13 DC 03/29/21 08:27 Divalproex Sodium (Depakote) 125 mg DAILY PO 03/29/21 09:00 04/01/21 19:42 DC 04/01/21 08:32 Lorazepam (Ativan) 0.5 mg BID PO 03/28/21 21:00 04/04/21 20:07 Quetiapine Fumarate (SEROquel) 25 mg DAILY PO 03/29/21 09:00 04/04/21 08:37 Quetiapine Fumarate (SEROquel) 50 mg DAILY PO 03/29/21 09:00 04/04/21 08:36 Insulin Human Lispro (HumaLOG) 0-7 UNITS TIDWMEALS SQ 03/29/21 08:00 03/28/21 23:36 DC Dextrose (Dextrose 50%-Water Syringe) 12.5 gm PRN Q15MIN PRN IV SEE COMMENTS 03/28/21 23:15 Insulin Human Lispro (HumaLOG) 0-7 UNITS BIDWMEALS SQ 03/29/21 09:00 03/31/21 14:07 DC 03/30/21 17:00 Alendronate Sodium (Fosamax) 70 mg WEEKLYAC PO 04/03/21 07:00 04/03/21 07:00 Sertraline HCl (Zoloft) 25 mg DAILY PO 03/30/21 09:00 04/04/21 11:28 DC 04/04/21 08:37 Insulin Human Lispro (HumaLOG) 0-7 UNITS TIDAC SQ 03/31/21 16:30 04/04/21 16:30 Sertraline HCl (Zoloft) 50 mg DAILY PO 04/05/21 09:00 Olanzapine (ZyPREXA ZYDIS) 7.5 mg PRN Q2HR PRN PO PSYCHOSIS 04/04/21 11:30 04/04/21 20:02 DC Olanzapine (ZyPREXA ZYDIS) 2.5 mg PRN Q2HR PRN PO PSYCHOSIS 04/04/21 20:00 I have reviewed the current psychotropics carefully including drug interactions. Risk benefit ratio favors no change other than as noted in my dictated progress note. Diagnosis: Problems: (1) Major depressive disorder, recurrent episode (2) Impulse control disorder, unspecified (3) Anxiety disorder, unspecified (4) Mild cognitive impairment VISHAL SWAIN MD Apr 05, 2021 06:41
[2021-04-05] MEDS: INSULIN LISPRO 300 UNITS/3 ML VIAL. SQ SCH ×3 (07:30→16:30)
[2021-04-05] MEDS: LACTOBACILLUS RHAMNOSUS GG 1 CAPSULE. PO SCH ×2 (08:10→20:51)
[2021-04-05] MEDS: ASCORBIC ACID 500 MG TABLET PO SCH (08:11)
[2021-04-05] MEDS: amLODIPine BESYLATE 10 MG TABLET PO SCH (08:11)
[2021-04-05] MEDS: QUEtiapine 25 MG TABLET. PO SCH (08:11)
[2021-04-05] MEDS: LORazepam 0.5 MG TABLET PO SCH ×2 (08:11→20:50)
[2021-04-05] MEDS: CARVEDILOL 12.5 MG TABLET PO SCH ×2 (08:11→17:23)
[2021-04-05] MEDS: PANTOPRAZOLE 40 MG TABLET. PO SCH (08:11)
[2021-04-05] MEDS: MULTIVITAMIN with MINERAL TABLET. PO SCH (08:11)
[2021-04-05] MEDS: SERTRALINE 50 MG TABLET. PO SCH (08:12)
[2021-04-05] MEDS: LISINOPRIL 20 MG TABLET PO SCH (08:12)
[2021-04-05] MEDS: QUEtiapine 50 MG TABLET. PO SCH (08:12)
--- NOTE | 2021-04-05 13:29 | NUR ---
Pt has been calm, cooperative, and medication compliant. This morning her blood sugar was only 132, so the insulin chart was followed and she was not given any morning insulin. At lunch her blood sugar was 329 which required 10 units of insulin per the guidelines. She spent time with peers in the day room and outside for group before lunch time. After lunch staff helped her into her bed for an afternoon nap.
--- NOTE | 2021-04-05 13:33 | NUR ---
SW attempted outreach to pt son/DPOA, Bruno, to provide update. Phone just rang; no voicemail picked up. SW will attempt outreach again next week.
[2021-04-05 16:00] VITALS: BP 108/67
[2021-04-05] MEDS: ATORVASTATIN CALCIUM 20 MG TABLET PO SCH (20:50)
--- NOTE | 2021-04-05 21:54 | PDOC ---
Exam Note: Hayden Note: Please also refer to the separate dictated note~for this date of service dictated separately.~Patient seen individually. Discussed the patient with Nursing staff reviewed the chart.~Reviewed interim history and current functioning. Reviewed vital signs,~Labs/ Radiology~and current medications noted below. Continue current treatment with the changes noted in the dictated addendum note Assessment: Vital Signs/I&O: Vital Signs Date Time Temp Pulse Resp B/P (MAP) Pulse Ox O2 Delivery O2 Flow Rate FiO2 04/05/21 17:23 60 108/67 04/05/21 16:00 97.7 16 98 04/04/21 06:32 Room Air I & O 04/04/21 04/04/21 04/05/21 15:00 23:00 07:00 Intake Total 120 ml 120 ml Output Total 450 ml 550 ml Balance 120 ml -330 ml -550 ml Labs: Laboratory Tests Test 04/05/21 07:50 04/05/21 11:46 04/05/21 16:51 04/05/21 19:23 Glucose (Fingerstick) 132 mg/dL (70-99) H 329 mg/dL (70-99) H 158 mg/dL (70-99) H 140 mg/dL (70-99) H Current Medications: Meds: Laboratory Tests Test 04/05/21 07:50 04/05/21 11:46 04/05/21 16:51 04/05/21 19:23 Glucose (Fingerstick) 132 mg/dL 329 mg/dL 158 mg/dL 140 mg/dL Current Medications Medications (Trade) Dose Ordered Sig/Lilly Route PRN Reason Start Time Stop Time Status Last Admin Dose Admin Acetaminophen (Tylenol) 650 mg PRN Q6HRS PRN PO MILD PAIN / TEMP > 100.3'F 03/28/21 19:30 04/03/21 20:50 Multi-Ingredient Ointment (Analgesic [place]) 1 billy PRN QID PRN TP MUSCLE PAIN 03/28/21 19:30 Al Hydroxide/Mg Hydroxide (Mylanta Plus Xs) 15 ml PRN AFTMEALHC PRN PO 2ND CHOICE DYSPEPSIA 03/28/21 19:30 Magnesium Hydroxide (Milk Of Magnesia) 2,400 mg PRN QHS PRN PO CONSTIPATION 03/28/21 19:30 Amlodipine Besylate (Norvasc) 10 mg DAILY PO 03/29/21 09:00 04/05/21 08:11 Bismuth Subsalicylate (Pepto-Bismol) 262 mg PRN Q6HRS PRN PO 1ST CHOICE DYSPEPSIA 03/28/21 20:00 Carvedilol (Coreg) 12.5 mg BIDWMEALS PO 03/29/21 08:00 04/05/21 17:23 Glimepiride (Amaryl) 3 mg BIDWMEALS PO 03/29/21 08:00 03/31/21 14:07 DC 03/30/21 17:00 Lisinopril (Prinivil) 20 mg DAILY PO 03/29/21 09:00 04/05/21 08:12 Non-Formulary Medication (Alendronate Sodium ) 70 mg WEEKLY PO 04/04/21 09:00 03/28/21 23:48 DC Ascorbic Acid (Vitamin C) 500 mg DAILY PO 03/29/21 09:00 04/05/21 08:11 Atorvastatin Calcium (Lipitor) 40 mg QHS PO 03/28/21 21:00 04/05/21 20:50 Non-Formulary Medication (Glimepiride ) 1 mg BID PO 03/28/21 21:00 UNV Insulin Glargine (Lantus Syringe) 20 unit DAILYWBKFT SQ 03/29/21 08:00 03/31/21 14:07 DC 03/30/21 09:14 Lactobacillus Rhamnosus (Culturelle) 1 cap BID PO 03/28/21 21:00 04/05/21 20:51 Levothyroxine Sodium (Synthroid) 125 mcg DAILY06 PO 03/29/21 06:00 04/05/21 06:00 Multivitamins/ Calcium (Thera-M Plus) 1 tab DAILY PO 03/29/21 09:00 04/05/21 08:11 Pantoprazole Sodium (Protonix) 40 mg DAILY PO 03/29/21 09:00 04/05/21 08:11 Linagliptin (Tradjenta) 5 mg DAILY PO 03/29/21 09:00 03/31/21 14:07 DC 03/30/21 09:09 Buspirone HCl (Buspar) 10 mg BID PO 03/28/21 21:00 03/29/21 20:13 DC 03/29/21 08:27 Divalproex Sodium (Depakote) 125 mg DAILY PO 03/29/21 09:00 04/01/21 19:42 DC 04/01/21 08:32 Lorazepam (Ativan) 0.5 mg BID PO 03/28/21 21:00 04/05/21 20:50 Quetiapine Fumarate (SEROquel) 25 mg DAILY PO 03/29/21 09:00 04/05/21 08:11 Quetiapine Fumarate (SEROquel) 50 mg DAILY PO 03/29/21 09:00 04/05/21 08:12 Insulin Human Lispro (HumaLOG) 0-7 UNITS TIDWMEALS SQ 03/29/21 08:00 03/28/21 23:36 DC Dextrose (Dextrose 50%-Water Syringe) 12.5 gm PRN Q15MIN PRN IV SEE COMMENTS 03/28/21 23:15 Insulin Human Lispro (HumaLOG) 0-7 UNITS BIDWMEALS SQ 03/29/21 09:00 03/31/21 14:07 DC 03/30/21 17:00 Alendronate Sodium (Fosamax) 70 mg WEEKLYAC PO 04/03/21 07:00 04/03/21 07:00 Sertraline HCl (Zoloft) 25 mg DAILY PO 03/30/21 09:00 04/04/21 11:28 DC 04/04/21 08:37 Insulin Human Lispro (HumaLOG) 0-7 UNITS TIDAC SQ 03/31/21 16:30 04/05/21 16:30 Sertraline HCl (Zoloft) 50 mg DAILY PO 04/05/21 09:00 04/05/21 08:12 Olanzapine (ZyPREXA ZYDIS) 7.5 mg PRN Q2HR PRN PO PSYCHOSIS 04/04/21 11:30 04/04/21 20:02 DC Olanzapine (ZyPREXA ZYDIS) 2.5 mg PRN Q2HR PRN PO PSYCHOSIS 04/04/21 20:00 Current Medications Medications (Trade) Dose Ordered Sig/Lilly Route PRN Reason Start Time Stop Time Status Last Admin Dose Admin Sertraline HCl (Zoloft) 50 mg DAILY PO 04/05/21 09:00 04/05/21 08:12 I have reviewed the current psychotropics carefully including drug interactions. Risk benefit ratio favors no change other than as noted in my dictated progress note. Diagnosis: Problems: (1) Major depressive disorder, recurrent episode (2) Impulse control disorder, unspecified (3) Anxiety disorder, unspecified (4) Mild cognitive impairment VISHAL SWAIN MD Apr 05, 2021 21:54
[2021-04-06] MEDS: LEVOTHYROXINE 125 MCG TABLET PO SCH (06:02)
[2021-04-06 06:07] VITALS: BP 119/67
[2021-04-06] MEDS: CARVEDILOL 12.5 MG TABLET PO SCH ×2 (09:01→17:00)
[2021-04-06] MEDS: LACTOBACILLUS RHAMNOSUS GG 1 CAPSULE. PO SCH ×2 (09:02→20:48)
[2021-04-06] MEDS: QUEtiapine 50 MG TABLET. PO SCH (09:02)
[2021-04-06] MEDS: QUEtiapine 25 MG TABLET. PO SCH (09:02)
[2021-04-06] MEDS: amLODIPine BESYLATE 10 MG TABLET PO SCH (09:02)
[2021-04-06] MEDS: LISINOPRIL 20 MG TABLET PO SCH (09:02)
[2021-04-06] MEDS: PANTOPRAZOLE 40 MG TABLET. PO SCH (09:02)
[2021-04-06] MEDS: SERTRALINE 50 MG TABLET. PO SCH (09:02)
[2021-04-06] MEDS: LORazepam 0.5 MG TABLET PO SCH ×2 (09:03→20:50)
[2021-04-06] MEDS: ASCORBIC ACID 500 MG TABLET PO SCH (09:03)
[2021-04-06] MEDS: MULTIVITAMIN with MINERAL TABLET. PO SCH (09:03)
[2021-04-06] MEDS: INSULIN LISPRO 300 UNITS/3 ML VIAL. SQ SCH ×3 (09:04→16:30)
[2021-04-06] MEDS: ACETAMINOPHEN 325 MG TABLET PO PRN (13:00)
[2021-04-06 15:58] VITALS: BP 92/60
--- NOTE | 2021-04-06 17:57 | NUR ---
Pt has calm, cooperative, and medication compliant. Pt continues to refuse to help in any way with her care. She denies SI. Pt has been withdrawn to room majority of the day besides meal time; she napped after lunch until dinner.
[2021-04-06] MEDS: ATORVASTATIN CALCIUM 20 MG TABLET PO SCH (20:48)
--- NOTE | 2021-04-07 00:01 | NUR ---
Patient was in bed when this nurse came on shift. She was withdrawn, although compliant with medications taken one by one, whole with water. Patient has difficulty seeing and likes the medicine put into her hand with two medications at a time. Patient denied pain, she went back to sleep after nurse left the room. No verbal or physical aggression noted this shift.
[2021-04-07] MEDS: LEVOTHYROXINE 125 MCG TABLET PO SCH (06:04)
[2021-04-07] MEDS: ACETAMINOPHEN 325 MG TABLET PO PRN ×2 (06:06→17:36)
[2021-04-07 06:23] VITALS: BP 127/72
[2021-04-07] MEDS: MULTIVITAMIN with MINERAL TABLET. PO SCH (08:14)
[2021-04-07] MEDS: ASCORBIC ACID 500 MG TABLET PO SCH (08:14)
[2021-04-07] MEDS: QUEtiapine 50 MG TABLET. PO SCH (08:14)
[2021-04-07] MEDS: amLODIPine BESYLATE 10 MG TABLET PO SCH (08:14)
[2021-04-07] MEDS: LISINOPRIL 20 MG TABLET PO SCH (08:14)
[2021-04-07] MEDS: QUEtiapine 25 MG TABLET. PO SCH (08:14)
[2021-04-07] MEDS: SERTRALINE 50 MG TABLET. PO SCH (08:15)
[2021-04-07] MEDS: CARVEDILOL 12.5 MG TABLET PO SCH ×2 (08:15→17:35)
[2021-04-07] MEDS: PANTOPRAZOLE 40 MG TABLET. PO SCH (08:15)
[2021-04-07] MEDS: LACTOBACILLUS RHAMNOSUS GG 1 CAPSULE. PO SCH ×2 (08:15→20:23)
[2021-04-07] MEDS: LORazepam 0.5 MG TABLET PO SCH ×2 (08:17→20:23)
[2021-04-07] MEDS: INSULIN LISPRO 300 UNITS/3 ML VIAL. SQ SCH ×3 (08:25→16:30)
--- NOTE | 2021-04-07 10:41 | NUR ---
Nsg Note: Keyla has been resistant to self cares; she wanted me to feed her meds to her and give her a drink with each med. She is capable of holding the med cup, taking a couple of pills to put in her mouth, then moss picker her water to take a sip. I had to be firm with her before she would do this on her own. Then I praised her saying that it's good to do things for ourselves. She responded that in her facility, they do everything for her. I again encouraged her to do as much for herself that she can.
--- NOTE | 2021-04-07 11:54 | PDOC ---
Exam Note: Hayden Note: This note is a late entry for 04/05/2021 covers elements not covered in my initial note. Subjective: The patient was seen individually in the evening of 04/05/2021 with Paulino GARCIA, discussed and reviewed the chart. The patient slept 9 hours previous night. I met with her in her room. Per nursing report she appears helpless as little for herself even though she can and I addressed with her evening of 04/05 in her room. She is wanting to get to bed and nursing staff will assist her. Review of Systems: Ambulation impaired in wheelchair. No CV, , pulmonary, eye system symptoms on review. Mental Status Exam: The patient is reasonably oriented. I met with her in her room. Speech coherent. Abstraction fair. Computation impaired. Language function intact. Mood and affect improved. Laboratory Data: Reviewed. Impression: Major depressive disorder. Anxiety disorder unspecified. Impulse control disorder. Mild cognitive impairment. Plan: Continue psychotropics from initial note. Please be noted Dr. Edwards will cover for me from 04/06 through 04/17/2021. Assessment: Vital Signs/I&O: Vital Signs Date Time Temp Pulse Resp B/P (MAP) Pulse Ox O2 Delivery O2 Flow Rate FiO2 04/07/21 08:15 71 127/72 04/07/21 06:23 98.4 16 95 04/04/21 06:32 Room Air I & O 04/06/21 04/06/21 04/07/21 15:00 23:00 07:00 Intake Total 600 ml 360 ml Output Total 500 ml 400 ml Balance 600 ml -140 ml -400 ml Labs: Laboratory Tests Test 04/06/21 16:46 04/06/21 19:11 04/07/21 07:22 04/07/21 11:38 Glucose (Fingerstick) 91 mg/dL (70-99) 163 mg/dL (70-99) H 167 mg/dL (70-99) H 319 mg/dL (70-99) H Current Medications: Meds: Laboratory Tests Test 04/06/21 16:46 04/06/21 19:11 04/07/21 07:22 04/07/21 11:38 Glucose (Fingerstick) 91 mg/dL 163 mg/dL 167 mg/dL 319 mg/dL Current Medications Medications (Trade) Dose Ordered Sig/Lilly Route PRN Reason Start Time Stop Time Status Last Admin Dose Admin Acetaminophen (Tylenol) 650 mg PRN Q6HRS PRN PO MILD PAIN / TEMP > 100.3'F 03/28/21 19:30 04/07/21 06:06 Multi-Ingredient Ointment (Analgesic [place]enton) 1 billy PRN QID PRN TP MUSCLE PAIN 03/28/21 19:30 Al Hydroxide/Mg Hydroxide (Mylanta Plus Xs) 15 ml PRN AFTMEALHC PRN PO 2ND CHOICE DYSPEPSIA 03/28/21 19:30 Magnesium Hydroxide (Milk Of Magnesia) 2,400 mg PRN QHS PRN PO CONSTIPATION 03/28/21 19:30 Amlodipine Besylate (Norvasc) 10 mg DAILY PO 03/29/21 09:00 04/07/21 08:14 Bismuth Subsalicylate (Pepto-Bismol) 262 mg PRN Q6HRS PRN PO 1ST CHOICE DYSPEPSIA 03/28/21 20:00 Carvedilol (Coreg) 12.5 mg BIDWMEALS PO 03/29/21 08:00 04/07/21 08:15 Glimepiride (Amaryl) 3 mg BIDWMEALS PO 03/29/21 08:00 03/31/21 14:07 DC 03/30/21 17:00 Lisinopril (Prinivil) 20 mg DAILY PO 03/29/21 09:00 04/07/21 08:14 Non-Formulary Medication (Alendronate Sodium ) 70 mg WEEKLY PO 04/04/21 09:00 03/28/21 23:48 DC Ascorbic Acid (Vitamin C) 500 mg DAILY PO 03/29/21 09:00 04/07/21 08:14 Atorvastatin Calcium (Lipitor) 40 mg QHS PO 03/28/21 21:00 04/06/21 20:48 Non-Formulary Medication (Glimepiride ) 1 mg BID PO 03/28/21 21:00 UNV Insulin Glargine (Lantus Syringe) 20 unit DAILYWBKFT SQ 03/29/21 08:00 03/31/21 14:07 DC 03/30/21 09:14 Lactobacillus Rhamnosus (Culturelle) 1 cap BID PO 03/28/21 21:00 04/07/21 08:15 Levothyroxine Sodium (Synthroid) 125 mcg DAILY06 PO 03/29/21 06:00 04/07/21 06:04 Multivitamins/ Calcium (Thera-M Plus) 1 tab DAILY PO 03/29/21 09:00 04/07/21 08:14 Pantoprazole Sodium (Protonix) 40 mg DAILY PO 03/29/21 09:00 04/07/21 08:15 Linagliptin (Tradjenta) 5 mg DAILY PO 03/29/21 09:00 03/31/21 14:07 DC 03/30/21 09:09 Buspirone HCl (Buspar) 10 mg BID PO 03/28/21 21:00 03/29/21 20:13 DC 03/29/21 08:27 Divalproex Sodium (Depakote) 125 mg DAILY PO 03/29/21 09:00 04/01/21 19:42 DC 04/01/21 08:32 Lorazepam (Ativan) 0.5 mg BID PO 03/28/21 21:00 04/07/21 08:17 Quetiapine Fumarate (SEROquel) 25 mg DAILY PO 03/29/21 09:00 04/07/21 08:14 Quetiapine Fumarate (SEROquel) 50 mg DAILY PO 03/29/21 09:00 04/07/21 08:14 Insulin Human Lispro (HumaLOG) 0-7 UNITS TIDWMEALS SQ 03/29/21 08:00 03/28/21 23:36 DC Dextrose (Dextrose 50%-Water Syringe) 12.5 gm PRN Q15MIN PRN IV SEE COMMENTS 03/28/21 23:15 Insulin Human Lispro (HumaLOG) 0-7 UNITS BIDWMEALS SQ 03/29/21 09:00 03/31/21 14:07 DC 03/30/21 17:00 Alendronate Sodium (Fosamax) 70 mg WEEKLYAC PO 04/03/21 07:00 04/03/21 07:00 Sertraline HCl (Zoloft) 25 mg DAILY PO 03/30/21 09:00 04/04/21 11:28 DC 04/04/21 08:37 Insulin Human Lispro (HumaLOG) 0-7 UNITS TIDAC SQ 03/31/21 16:30 04/07/21 08:25 Sertraline HCl (Zoloft) 50 mg DAILY PO 04/05/21 09:00 04/07/21 08:15 Olanzapine (ZyPREXA ZYDIS) 7.5 mg PRN Q2HR PRN PO PSYCHOSIS 04/04/21 11:30 04/04/21 20:02 DC Olanzapine (ZyPREXA ZYDIS) 2.5 mg PRN Q2HR PRN PO PSYCHOSIS 04/04/21 20:00 I have reviewed the current psychotropics carefully including drug interactions. Risk benefit ratio favors no change other than as noted in my dictated progress note. Diagnosis: Problems: (1) Major depressive disorder, recurrent episode (2) Impulse control disorder, unspecified (3) Anxiety disorder, unspecified (4) Mild cognitive impairment VISHAL SWAIN MD Apr 07, 2021 11:54
[2021-04-07 15:41] VITALS: BP_SYST 104; BP_DIAS 17; BP_DIAS 71
--- NOTE | 2021-04-07 16:43 | NUR ---
Nsg Note; Keyla wanted to be in her bed sleeping all day, and was encouraged to stay up in her w/c for several hours after breakfast. She was rude, sarcastic and inpatient during her dressing change
[2021-04-07] MEDS: ATORVASTATIN CALCIUM 20 MG TABLET PO SCH (20:23)
--- NOTE | 2021-04-07 21:55 | NUR ---
Pt sitting up in w/c, withdraw to her room when approached. Pt calm but resistive with self cares and acting helpless. Pt requires a lot of cueing and encouragement to assist staff with her cares. Pt cooperative with assessment and compliant with medications administered whole. No agitation or aggression noted thus far this shift.
--- NOTE | 2021-04-07 22:25 | PN ---
DATE: 04/06/2021 SUBJECTIVE: The patient was seen today, met with the staff and chart reviewed. This is a late entry for the service date 04/06/2021. Staff reports continued behavior problems including demanding and needing assistance with ADLs and also feeling helpless. OBSERVATION: VITAL SIGNS: Temperature 98.9, blood pressure 119/67, pulse 67, respirations 20, O2 sat 96%. GENERAL: Slept about 8 hours last night. The patient's appetite is fair. CURRENT MEDICATIONS: Include Zoloft 50 mg daily, Zyprexa Zydis 2.5 mg q. 2 hours p.r.n., Seroquel 50 mg daily and 25 mg daily, lorazepam 0.5 mg twice a day. The patient is not having any major side effects. LABORATORY DATA: The patient's lab reviewed. No significant change from prior levels. The patient's valproic acid level was only 5. The patient did not have any falls. ASSESSMENT: 1. Major depression, recurrent. 2. Generalized anxiety disorder. 3. Impulse control disorder, unspecified. PLAN: To continue with the current treatment plan. Continue with the current medications. LENGTH OF STAY: 7 to 10 days. TORITO/NICK/SRIKANTH DR: Sherman TID: [id number]
--- NOTE | 2021-04-07 23:19 | PN ---
DATE: 04/07/2021 SUBJECTIVE: The patient was seen today, met with the staff, chart reviewed. Staff reports continued behavior problems, tend to wander, intrusive and feeling helpless and also needing assistance with ADLs and difficulty following directions. The patient is compliant with medications. OBSERVATION: VITAL SIGNS: Temperature 98.4, blood pressure 127/72, pulse 71, respirations 16, O2 sat 95%. GENERAL: Slept about 9 hours last night. The patient currently not having any major physical complaints. CURRENT MEDICATIONS: Include Zoloft 50 mg daily, Zyprexa Zydis 2.5 mg q. 2 hours p.r.n., Seroquel 50 mg daily and 25 mg daily, lorazepam 0.5 mg twice a day. The patient is not having any side effects to medications. LABORATORY DATA: The patient's lab reviewed. ASSESSMENT: 1. Major depression, recurrent. 2. Generalized anxiety disorder. 3. Impulse control disorder, unspecified. PLAN: To continue with treatment. LENGTH OF STAY: Seven to ten days. ALEX[address]ER DR: Sherman TID: [id number]
[2021-04-08] MEDS: LEVOTHYROXINE 125 MCG TABLET PO SCH (05:13)
[2021-04-08] MEDS: ACETAMINOPHEN 325 MG TABLET PO PRN (05:21)
[2021-04-08 06:09] LABS: BASO % 1 % (0-3); EOS # 0.4 x10^3/uL (0.0-0.7); EOS % 9 % (0-3); HEMATOCRIT 27.2 % (36.0-47.0); HEMOGLOBIN 9.2 g/dL (12.0-15.5); LYMPH # 0.8 x10^3/uL (1.0-4.8); LYMPH % 16 % (24-48); MEAN CORPUSCULAR HEMOGLOBIN 32 pg (25-35); MEAN CORPUSCULAR HGB CONC 34 g/dL (31-37); MEAN CORPUSCULAR VOLUME 95 fL (79-100); MONO # 0.4 x10^3/uL (0.0-1.1); MONO % 8 % (0-9); NEUT # 3.2 x10^3uL (1.8-7.7); NEUT % 66 % (31-73); PLATELET COUNT 210 x10^3/uL (140-400); RED BLOOD COUNT 2.86 x10^6/uL (3.50-5.40); RED CELL DISTRIBUTION WIDTH 13.3 % (11.5-14.5); WHITE BLOOD COUNT 4.8 x10^3/uL (4.0-11.0)
[2021-04-08 06:13] VITALS: BP 146/53
[2021-04-08 06:26] LABS: ALBUMIN 3.2 g/dL (3.4-5.0); ALBUMIN/GLOBULIN RATIO 0.9 (1.0-1.7); CALCIUM 8.2 mg/dL (8.5-10.1); CREATININE 1.3 mg/dL (0.6-1.0); GFR 39.7; POTASSIUM 4.9 mmol/L (3.5-5.1); TOTAL BILIRUBIN 0.3 mg/dL (0.2-1.0); TOTAL PROTEIN 6.8 g/dL (6.4-8.2)
[2021-04-08] MEDS: CARVEDILOL 12.5 MG TABLET PO SCH ×3 (08:00→18:08)
[2021-04-08] MEDS: SERTRALINE 50 MG TABLET. PO SCH (08:38)
[2021-04-08] MEDS: LORazepam 0.5 MG TABLET PO SCH ×2 (08:39→19:57)
[2021-04-08] MEDS: amLODIPine BESYLATE 10 MG TABLET PO SCH ×2 (08:39→09:27)
[2021-04-08] MEDS: PANTOPRAZOLE 40 MG TABLET. PO SCH (08:39)
[2021-04-08] MEDS: QUEtiapine 25 MG TABLET. PO SCH (08:39)
[2021-04-08] MEDS: QUEtiapine 50 MG TABLET. PO SCH (08:39)
[2021-04-08] MEDS: ASCORBIC ACID 500 MG TABLET PO SCH (08:39)
[2021-04-08] MEDS: MULTIVITAMIN with MINERAL TABLET. PO SCH (08:40)
[2021-04-08] MEDS: LISINOPRIL 20 MG TABLET PO SCH ×2 (08:40→09:27)
[2021-04-08] MEDS: LACTOBACILLUS RHAMNOSUS GG 1 CAPSULE. PO SCH ×2 (08:40→19:57)
[2021-04-08] MEDS: INSULIN LISPRO 300 UNITS/3 ML VIAL. SQ SCH ×3 (08:45→18:11)
--- NOTE | 2021-04-08 10:20 | NUR ---
Nursing note: Patient in dinning room for morning medications & assessment. She is compliant with medications taken whole. She is A/O to self only. Patient is demanding, acts as if she can't do things herself, withdrawn, and frequently requesting misc items. She propels self in w/c, 2 person assist for transfers. Alexander patent with clear yellow urine noted. She is currently sitting in hallway. Will continue to monitor.
--- NOTE | 2021-04-08 12:11 | NUR ---
HILDA contacted Chelsie at pt facility; had to [facility] with brief update. HILDA left Chelsie with call back number and reported that SW would call again toward the end of the week. HILDA then contacted Bruno, pt son/DPOA. HILDA reported that pt mostly stayed in her room and really didn't participate in groups when encouraged to do so. Bruno stated that the things that pt once used to enjoy doing, she really has no interest in them anymore. He stated that even at her facility, she will watch some movies in her room on her television, but they are things that she really repeats in watching. HILDA, also, reported to Bruno that pt really only likes to take medications on a spoon and only takes a couple at a time. Bruno stated that after pt had her stroke, there was apparently a speech eval done d/t some swallowing difficulties. Bruno stated that when he and his were caring for her, they really had to do the same things as pt would complain that she could only swallow a few at a time and if they were too big then sometimes that was the only pill she could swallow. Bruno expressed his gratitude for working with the pt and noted that he had some of the same challenges when he was still caring for her prior to her going to a facility to live. SW agreeable to contacting Bruno toward the end of the week with another update.
[2021-04-08 15:50] VITALS: BP 106/64
--- NOTE | 2021-04-08 17:43 | NUR ---
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 Pt assessed and redressed. 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 jose also has a fluid filled blister to rigth lateral hell that has some DTI under it. Pictured and measured blister. No other wounds noted, patient refused assessment of coccyx/buttocks Treatment Recommendations/Plan: Recommend placing Iodoflex mahogany over wound, and covering with an Aquacel foam, change every 2-3 days. Also recommend post op shoe for off-loading and heel medix boot while in bed. Education provided: POC discussed with RN. Offloading surface/device: post op shoe to offload, as pt scoots in her w/c and heel medix boot while in bed. Recommended Referrals/Tests: n/a Discharge Recommendations for dressings: same as treatment plan above
[2021-04-08] MEDS: ATORVASTATIN CALCIUM 20 MG TABLET PO SCH (19:57)
--- NOTE | 2021-04-08 22:41 | NUR ---
Pt sitting up in w/c in her room when approached. Pt calm, withdrawn, and confused. Pt cooperative with assessment and compliant with medications administered whole. Pt able to hold medication cup and put pills in her mouth, and does so willingly. Pt has been cooperative with cares although she makes frequent requests to lie down. No agitation or aggression noted thus far this shift.
[2021-04-09 05:14] VITALS: BP 117/55
[2021-04-09] MEDS: LEVOTHYROXINE 125 MCG TABLET PO SCH (05:17)
[2021-04-09] MEDS: PANTOPRAZOLE 40 MG TABLET. PO SCH (08:20)
[2021-04-09] MEDS: CARVEDILOL 12.5 MG TABLET PO SCH ×2 (08:21→17:28)
[2021-04-09] MEDS: LISINOPRIL 20 MG TABLET PO SCH (08:21)
[2021-04-09] MEDS: QUEtiapine 50 MG TABLET. PO SCH (08:21)
[2021-04-09] MEDS: amLODIPine BESYLATE 10 MG TABLET PO SCH (08:22)
[2021-04-09] MEDS: MULTIVITAMIN with MINERAL TABLET. PO SCH (08:22)
[2021-04-09] MEDS: LORazepam 0.5 MG TABLET PO SCH ×2 (08:22→19:40)
[2021-04-09] MEDS: SERTRALINE 50 MG TABLET. PO SCH (08:22)
[2021-04-09] MEDS: QUEtiapine 25 MG TABLET. PO SCH (08:22)
[2021-04-09] MEDS: LACTOBACILLUS RHAMNOSUS GG 1 CAPSULE. PO SCH ×2 (08:22→19:40)
[2021-04-09] MEDS: ASCORBIC ACID 500 MG TABLET PO SCH (08:22)
[2021-04-09] MEDS: INSULIN LISPRO 300 UNITS/3 ML VIAL. SQ SCH ×3 (08:27→17:26)
--- NOTE | 2021-04-09 10:26 | NUR ---
Nursing note: Patient in dinning room for morning medications & assessment. She is compliant with medications taken whole. She is A/O to self only, was able to voice current year. Patient is demanding, acts as if she can't do things herself, withdrawn, and frequently requesting misc items. She propels self in w/c, 2 person assist for transfers. Alexander patent with clear yellow urine noted. She is currently sitting in bedroom. Will continue to monitor.
[2021-04-09] MEDS: ACETAMINOPHEN 325 MG TABLET PO PRN ×2 (12:39→19:41)
[2021-04-09 15:56] VITALS: BP 105/50
[2021-04-09] MEDS: ATORVASTATIN CALCIUM 20 MG TABLET PO SCH (19:40)
[2021-04-09 20:59] LABS: BILIRUBIN,URINE NEG (NEG); CLARITY,URINE CLEAR; COLOR,URINE YELLOW; GLUCOSE,URINE NEG (NEG); NITRITE,URINE NEG (NEG); UROBILINOGEN,URINE 0.2 mg/dL (0.2 mg/dL)
[2021-04-09 21:00] LABS: BACTERIA,URINE FEW /HPF (0-FEW); SQUAMOUS EPITHELIAL CELL,UR FEW /LPF
--- NOTE | 2021-04-10 00:57 | PN ---
DATE: 04/08/2021 This is a late entry for the service date 04/08/2021. SUBJECTIVE: The patient was seen today, met with the staff. Chart was reviewed and also covering for Dr. Addison. Staff reports continued behavior problems including wandering, intrusive behaviors and also feeling hopeless all the time. The patient also needing assistance with ADLs. The patient has difficulty following directions. The patient is compliant with the medications. OBSERVATION: VITAL SIGNS: Temperature 98.2, blood pressure 146/53, pulse 66, respirations 16, O2 sat 100%. GENERAL: Slept about 7 hours last night. CURRENT MEDICATIONS: Include Zoloft 50 mg daily, Zydis 2.5 mg q.2 hours p.r.n., Seroquel 50 mg daily and 25 mg daily, lorazepam 0.5 mg twice a day. She is not having any side effects. LABORATORY DATA: The patient's lab reviewed. ASSESSMENT: 1. Major depression, recurrent. 2. Generalized anxiety disorder. 3. Impulse control disorder, unspecified. PLAN: To continue with treatment. LENGTH OF STAY: [address]: Sherman TID: [id number]
--- NOTE | 2021-04-10 01:44 | PN ---
DATE: 04/09/2021 SUBJECTIVE: The patient was seen today, met with the staff, chart reviewed and also covering for Dr. Addison. The patient continues to have problems, tendency to wander, intrusiveness and also feeling hopeless. She is compliant with the medications. OBSERVATION: VITAL SIGNS: Temperature 98, blood pressure 117/55, pulse 60, respirations 16, O2 sat 97%. GENERAL: Slept about 7 hours last night. The patient's appetite improved. CURRENT MEDICATIONS: Include Zoloft 50 mg daily, Zyprexa 2.5 mg q.2 hours p.r.n., Seroquel 50 mg daily and 25 mg daily, lorazepam 0.5 mg twice a day. She is not having any side effects to medications. LABORATORY DATA: The patient's lab reviewed. The patient has no other medical complaints except complaining of frequent headaches and wanting to stay in bed most of the time. ASSESSMENT: 1. Major depressive disorder, recurrent. 2. Generalized anxiety disorder. 3. Impulse control disorder, unspecified. PLAN: To continue with the treatment. LENGTH OF STAY: Seven to ten days. S[address]: Sherman TID: [id number]
--- NOTE | 2021-04-10 02:42 | NUR ---
Pt withdrawn to her room, sitting up in her w/c. Pt irritable, rude, disorganized, and demanding. Pt cooperative although irritated with assessment and compliant with medications administered whole. Alexander catheter was changed this evening; 16F catheter inserted and balloon inflated with 10mL NS. Pt tolerated procedure well. Tubing clamped after insertion, urine specimen collected and sent to the lab; urine culture currently pending.
[2021-04-10 05:44] VITALS: BP 129/70
[2021-04-10] MEDS: LEVOTHYROXINE 125 MCG TABLET PO SCH (05:44)
[2021-04-10] MEDS: MULTIVITAMIN with MINERAL TABLET. PO SCH (08:31)
[2021-04-10] MEDS: QUEtiapine 50 MG TABLET. PO SCH (08:31)
[2021-04-10] MEDS: PANTOPRAZOLE 40 MG TABLET. PO SCH (08:31)
[2021-04-10] MEDS: ASCORBIC ACID 500 MG TABLET PO SCH (08:31)
[2021-04-10] MEDS: INSULIN LISPRO 300 UNITS/3 ML VIAL. SQ SCH ×3 (08:31→17:44)
[2021-04-10] MEDS: SERTRALINE 50 MG TABLET. PO SCH (08:31)
[2021-04-10] MEDS: LACTOBACILLUS RHAMNOSUS GG 1 CAPSULE. PO SCH ×2 (08:31→21:17)
[2021-04-10] MEDS: QUEtiapine 25 MG TABLET. PO SCH (08:31)
[2021-04-10] MEDS: CARVEDILOL 12.5 MG TABLET PO SCH ×2 (08:32→17:40)
[2021-04-10] MEDS: amLODIPine BESYLATE 10 MG TABLET PO SCH (08:32)
[2021-04-10] MEDS: LISINOPRIL 20 MG TABLET PO SCH (08:32)
[2021-04-10] MEDS: ALENDRONATE SODIUM 35 MG TABLET PO SCH (08:32)
[2021-04-10] MEDS: LORazepam 0.5 MG TABLET PO SCH ×2 (08:32→21:17)
--- NOTE | 2021-04-10 14:13 | NUR ---
HILDA along with pt RN contacted pt son/DPOA, Bruno, and Chelsie at pt facility to provide update related to pt being encouraged and demonstrating the ability to do more on her own. SW and RN reviewed pt's ability to get herself to the dinning area by herself, being a one person assist during transfers, feeding herself, and being able to take her own medications. SW and RN prefaced the importance of not engaging in a power struggle with her and if it is perceived that she is starting one then to just walk away from her while letting her know that if everything were done for her then that would be a disservice. Both appreciative of call/update. SW agreeable to call in a few days with more updates.
[2021-04-10 15:31] VITALS: BP 128/68
--- NOTE | 2021-04-10 15:39 | NUR ---
Pt has been calm, cooperative, and medication compliant. Pt took medications whole; I gave her all pills in a med cup and she took as many out at a time as she wanted and administered them to herself. Pt also was helpful in toileting herself this morning with encouragement from myself and with my assistance. Pt has been encouraged to stay up in her wheelchair today and participate in groups today. Pt has asked several times to go back to bed, but we have continued to encourage her to stay up until after dinner. Pt has wandered the hallways in her wheelchair and kept to herself and then spent time quietly in her room. Orders for Lantus 10 units HS have been ordered to help regulate pts blood sugars at this time.
--- NOTE | 2021-04-10 16:13 | PDOC2 ---
CONSULT DOS: DATE: 04/10/21 TIME: 15:58 Reason for Consult: Right plantar and heel wounds Referring Physician: Dr Richardson Problem List DFU to the right plantar foot and right heel History of Present Illness Patient admitted to [facility] with wound to her right plantar foot and right heel. Patient reports that she had her right fifth toe removed per podiatry approximately 2 years ago. Outside of the wound to her right fifth toe, patient denies history of diabetic foot ulcers or difficulty with wound healing. Patient does have underlying diabetes, insulin-dependent with a hemoglobin A1c reported on 03/28 of 7.7. On 04/08 patient's albumin was 3.2 and WBC 4.8. Patient denies neuropathy and states that she has good filling of her bilateral feet. Patient denies history of Dopplers to her legs to determine arterial flow. Pedal pulse is palpable of the affected leg. 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 Past Surgical History Mastectomy, right fifth toe removal Current Medications Current Medications Acetaminophen (Tylenol) 650 mg PRN Q6HRS PRN PO MILD PAIN / TEMP > 100.3'F Last administered on 04/09/21at 19:41; Start 03/28/21 at 19:30 Multi-Ingredient Ointment (Analgesic [place]) 1 billy PRN QID PRN TP MUSCLE PAIN; Start 03/28/21 at 19:30 Al Hydroxide/Mg Hydroxide (Mylanta Plus Xs) 15 ml PRN AFTMEALHC PRN PO 2ND CHOICE DYSPEPSIA; Start 03/28/21 at 19:30 Magnesium Hydroxide (Milk Of Magnesia) 2,400 mg PRN QHS PRN PO CONSTIPATION; Start 03/28/21 at 19:30 Amlodipine Besylate (Norvasc) 10 mg DAILY PO Last administered on 04/10/21at 08:32; Start 03/29/21 at 09:00 Bismuth Subsalicylate (Pepto-Bismol) 262 mg PRN Q6HRS PRN PO 1ST CHOICE DYSPEPSIA; Start 03/28/21 at 20:00 Carvedilol (Coreg) 12.5 mg BIDWMEALS PO Last administered on 04/10/21at 08:32; Start 03/29/21 at 08:00 Glimepiride (Amaryl) 3 mg BIDWMEALS PO Last administered on 03/30/21at 17:00; Start 03/29/21 at 08:00; Stop 03/31/21 at 14:07; Status DC Lisinopril (Prinivil) 20 mg DAILY PO Last administered on 04/10/21at 08:32; Start 03/29/21 at 09:00 Non-Formulary Medication (Alendronate Sodium ) 70 mg WEEKLY PO ; Start 04/04/21 at 09:00; Stop 03/28/21 at 23:48; Status DC Ascorbic Acid (Vitamin C) 500 mg DAILY PO Last administered on 04/10/21at 08:31; Start 03/29/21 at 09:00 Atorvastatin Calcium (Lipitor) 40 mg QHS PO Last administered on 04/09/21at 19:40; Start 03/28/21 at 21:00 Non-Formulary Medication (Glimepiride ) 1 mg BID PO ; Start 03/28/21 at 21:00; Status UNV Insulin Glargine (Lantus Syringe) 20 unit DAILYWBKFT SQ Last administered on 03/30/21at 09:14; Start 03/29/21 at 08:00; Stop 03/31/21 at 14:07; Status DC Lactobacillus Rhamnosus (Culturelle) 1 cap BID PO Last administered on 04/10/21at 08:31; Start 03/28/21 at 21:00 Levothyroxine Sodium (Synthroid) 125 mcg DAILY06 PO Last administered on 04/10/21at 05:44; Start 03/29/21 at 06:00 Multivitamins/ Calcium (Thera-M Plus) 1 tab DAILY PO Last administered on 04/10/21at 08:31; Start 03/29/21 at 09:00 Pantoprazole Sodium (Protonix) 40 mg DAILY PO Last administered on 04/10/21at 08:31; Start 03/29/21 at 09:00 Linagliptin (Tradjenta) 5 mg DAILY PO Last administered on 03/30/21at 09:09; Start 03/29/21 at 09:00; Stop 03/31/21 at 14:07; Status DC Buspirone HCl (Buspar) 10 mg BID PO Last administered on 03/29/21at 08:27; Start 03/28/21 at 21:00; Stop 03/29/21 at 20:13; Status DC Divalproex Sodium (Depakote) 125 mg DAILY PO Last administered on 04/01/21at 08 :32; Start 03/29/21 at 09:00; Stop 04/01/21 at 19:42; Status DC Lorazepam (Ativan) 0.5 mg BID PO Last administered on 04/10/21at 08:32; Start 03/28/21 at 21:00 Quetiapine Fumarate (SEROquel) 25 mg DAILY PO Last administered on 04/10/21at 08:31; Start 03/29/21 at 09:00 Quetiapine Fumarate (SEROquel) 50 mg DAILY PO Last administered on 04/10/21at 08:31; Start 03/29/21 at 09:00 Insulin Human Lispro (HumaLOG) 0-7 UNITS TIDWMEALS SQ ; Start 03/29/21 at 08:00; Stop 03/28/21 at 23:36; Status DC Dextrose (Dextrose 50%-Water Syringe) 12.5 gm PRN Q15MIN PRN IV SEE COMMENTS; Start 03/28/21 at 23:15 Insulin Human Lispro (HumaLOG) 0-7 UNITS BIDWMEALS SQ Last administered on 03/30/21at 17:00; Start 03/29/21 at 09:00; Stop 03/31/21 at 14:07; Status DC Alendronate Sodium (Fosamax) 70 mg WEEKLYAC PO Last administered on 04/10/21at 08:32; Start 04/03/21 at 07:00 Sertraline HCl (Zoloft) 25 mg DAILY PO Last administered on 04/04/21at 08:37; Start 03/30/21 at 09:00; Stop 04/04/21 at 11:28; Status DC Insulin Human Lispro (HumaLOG) 0-7 UNITS TIDAC SQ Last administered on 04/10/21at 12:23; Start 03/31/21 at 16:30 Sertraline HCl (Zoloft) 50 mg DAILY PO Last administered on 04/10/21at 08:31; Start 04/05/21 at 09:00 Olanzapine (ZyPREXA ZYDIS) 7.5 mg PRN Q2HR PRN PO PSYCHOSIS; Start 04/04/21 at 11:30; Stop 04/04/21 at 20:02; Status DC Olanzapine (ZyPREXA ZYDIS) 2.5 mg PRN Q2HR PRN PO PSYCHOSIS; Start 04/04/21 at 20:00 Insulin Glargine (Lantus Syringe) 10 unit QHS SQ ; Start 04/10/21 at 21:00 Active Scripts Active Reported Novolog (Insulin Aspart) 100 Unit/1 Ml Cartridge 0-10 Unit SQ BIDWMEALS Ativan (Lorazepam) 0.5 Mg Tablet 0.5 Mg PO BID Seroquel (Quetiapine Fumarate) 25 Mg Tablet 25 Mg PO BID Seroquel (Quetiapine Fumarate) 50 Mg Tablet 50 Mg PO DAILY Glimepiride 1 Mg Tablet 1 Mg PO BID Glimepiride 2 Mg Tablet 2 Mg PO BID Acidophilus (Lactobacillus Acidophilus) 1 Each Capsule 1 Each PO BID Buspirone Hcl 10 Mg Tablet 10 Mg PO BID Pepto-Bismol (Bismuth Subsalicylate) 262 Mg/15 Ml Oral.susp 262 Mg PO PRN Q6HRS PRN Alendronate Sodium 70 Mg Tablet 70 Mg PO WEEKLY Norvasc (Amlodipine Besylate) 10 Mg Tablet 10 Mg PO DAILY Lisinopril 20 Mg Tablet 20 Mg PO DAILY Omeprazole 20 Mg Capsule.dr 20 Mg PO DAILY Thera-M Caplet (Multivit,Ther Iron,Ca,Fa & Min) 1 Each Tablet 1 Each PO DAILY Onglyza (Saxagliptin Hcl) 5 Mg Tablet 5 Mg PO DAILY Levothyroxine (Levothyroxine Sodium) 125 Mcg Capsule 125 Mcg PO DAILY Atorvastatin Calcium 40 Mg Tablet 40 Mg PO QHS Vitamin C (Ascorbic Acid) 500 Mg Capsule.er 500 Mg PO DAILY Acetaminophen 325 Mg Tablet 325 Mg PO PRN Q6HRS PRN Lantus Solostar (Insulin Glargine,Hum.rec.anlog) 100 Unit/1 Ml Insuln.pen 20 Un it SQ DAILYWBKFT Carvedilol (Carvedilol) 12.5 Mg Tablet 12.5 Mg PO BIDWMEALS Divalproex Sodium 125 Mg Tablet.dr 125 Mg PO DAILY Allergies: Coded Allergies: No Known Allergies (Verified Allergy, Unknown, 03/28/21) Review of System Patient states that she is feeling well today. Patient states that she has a good appetite without nausea, vomiting or diarrhea. Patient denies cough or shortness of breath. Patient denies fever or flulike symptoms. Patient states that she has been sleeping okay however does deal with insomnia on occasion. Physical Exam Patient awake and alert 76-year-old female who is pleasant in conversation and appears to be a good historian. Vital signs are stable. Patient is afebrile. Respirations are even and unlabored. Patient is on room air with out supplemental oxygen. Abdomen is soft, nondistended and nontender to palpation. Patient does have Alexander catheter in place which is draining light yellow urine without sediment. Skin is warm dry and pink. The right fifth toe is surgically removed. Scar is intact without surrounding erythema or edema. The lateral right plantar foot presents with a 1.5 x 1.7 cm ulceration. Pedal pulses are palpable bilaterally. Cap refill to the toes is within normal limits. Wound bed is 100% eschar with mild surrounding callus. Following patie nt consent and application of topical lidocaine for ample period of time, nonviable tissue, minimal viable tissue and surrounding callus removed using sterile curette. Procedure discontinued prior to completion secondary to painful symptoms experienced by patient. Minimal bleeding controlled with pressure. No odor following cleansing noted. The right lateral heel presents with a 2.5 x 1.5 cm intact fluid-filled blister. No surrounding erythema or edema present. No active drainage. VITALS Vital Signs Date Time Temp Pulse Resp B/P (MAP) Pulse Ox O2 Delivery O2 Flow Rate FiO2 04/10/21 15:31 98.8 75 18 128/68 (88) 96 04/09/21 05:14 Room Air Labs Laboratory Tests Test 04/08/21 17:18 04/08/21 19:15 04/09/21 07:48 04/09/21 11:19 Glucose (Fingerstick) 240 mg/dL (70-99) 189 mg/dL (70-99) 166 mg/dL (70-99) 301 mg/dL (70-99) Test 04/09/21 16:45 04/09/21 18:58 04/09/21 20:33 04/10/21 05:27 Glucose (Fingerstick) 232 mg/dL (70-99) 151 mg/dL (70-99) Urine Collection Type Unknown Urine Color Yellow Urine Clarity Clear Urine pH 5.5 Urine Specific [place] 1.010 Urine Protein Trace (NEG-TRACE) Urine Glucose (UA) Neg mg/dL (NEG) Urine Ketones (Stick) Neg mg/dL (NEG) Urine Blood Trace (NEG) Urine Nitrite Neg (NEG) Urine Bilirubin Neg (NEG) Urine Urobilinogen Dipstick 0.2 mg/dL (0.2 mg/dL) Urine Leukocyte Esterase Mod (NEG) Urine RBC 1-2 /HPF (0-2) Urine WBC 5-10 /HPF (0-4) Urine Squamous Epithelial Cells Few /LPF Urine Bacteria Few /HPF (0-FEW) Coronavirus (COVID-19)(PCR) Negative (NEGATIVE) Test 04/10/21 08:03 04/10/21 11:37 Glucose (Fingerstick) 163 mg/dL (70-99) 305 mg/dL (70-99) Assessment/Plan Diabetic foot ulcers to the right lateral, plantar foot and right lateral heel, originally caused from pressure -Eschar to the plantar foot wound crosshatched at bedside. -To wound on plantar foot: Cleanse and pat dry. Apply skin prep to surrounding tissue. Cover with honey alginate and foam adhesive. Change every 3 days or as needed if dressing loose or saturated -2 intact blisters to right heel: Skin-Prep and cover with foam adhesive for protection. Will attempt to keep intact unless borders extending. -Patient with procore boot to help with offloading. Boot should be on at all times -PCP addressing diabetic control -Dietary consulting to ensure patient with adequate protein intake for optimal wound healing. Albumin on 03/21 3.2. [employer] Apr 10, 2021 16:13
[2021-04-10] MEDS: ATORVASTATIN CALCIUM 20 MG TABLET PO SCH (21:17)
[2021-04-10] MEDS: INSULIN GLARGINE SYRINGE. SQ SCH (21:41)
[2021-04-10] MEDS: ACETAMINOPHEN 325 MG TABLET PO PRN (21:58)
--- NOTE | 2021-04-10 22:42 | NUR ---
Dima pt sat in wc in her room she declined to come out and visit with others. She was less condescending with staff dima but still wants staff to do things for her that she is capable of doing herself. She took meds whole 2 at a time without difficulty and has had no behaviors. PRN tylenol given at HS for rt foot pain and she is sleeping now.
--- NOTE | 2021-04-11 03:10 | PN ---
DATE: 04/10/2021 SUBJECTIVE: The patient was seen today, met with the staff. Chart was reviewed and also covering for Dr. Addison. Staff reports increased irritability, social withdrawal, isolating herself. Currently, she is on wheelchair. No recent falls. OBSERVATION: VITAL SIGNS: Temperature 98.3, blood pressure 129/70, pulse 66, respirations 16, O2 sat 97%. GENERAL: Slept about 8 hours last night. The patient's appetite improved. CURRENT MEDICATIONS: Include Zoloft 50 mg daily, olanzapine 2.5 mg q. 2 hours p.r.n., Seroquel 50 mg daily, Seroquel 25 mg daily, lorazepam 0.5 mg twice a day. The patient is not having any side effects to medications. LABORATORY DATA: The patient's lab reviewed. ASSESSMENT: 1. Major depression, recurrent. 2. Generalized anxiety disorder. 3. Impulse control disorder, unspecified. PLAN: To continue with treatment. LENGTH OF STAY: 7 days. TORITO/NILESH/KAT DR: Sherman TID: [id number]
[2021-04-11 06:25] VITALS: BP 103/48
[2021-04-11] MEDS: INSULIN LISPRO 300 UNITS/3 ML VIAL. SQ SCH ×3 (07:30→17:19)
[2021-04-11 07:44] LABS: ALBUMIN 2.8 g/dL (3.4-5.0); ALBUMIN/GLOBULIN RATIO 0.8 (1.0-1.7); CALCIUM 7.7 mg/dL (8.5-10.1); CREATININE 1.2 mg/dL (0.6-1.0); GFR 43.6; POTASSIUM 4.4 mmol/L (3.5-5.1); TOTAL BILIRUBIN 0.3 mg/dL (0.2-1.0); TOTAL PROTEIN 6.3 g/dL (6.4-8.2)
[2021-04-11] MEDS: LEVOTHYROXINE 125 MCG TABLET PO SCH (09:36)
[2021-04-11] MEDS: LORazepam 0.5 MG TABLET PO SCH ×2 (09:36→20:03)
[2021-04-11] MEDS: MULTIVITAMIN with MINERAL TABLET. PO SCH (09:37)
[2021-04-11] MEDS: LACTOBACILLUS RHAMNOSUS GG 1 CAPSULE. PO SCH ×2 (09:37→20:02)
[2021-04-11] MEDS: QUEtiapine 50 MG TABLET. PO SCH (09:37)
[2021-04-11] MEDS: PANTOPRAZOLE 40 MG TABLET. PO SCH (09:37)
[2021-04-11] MEDS: CARVEDILOL 12.5 MG TABLET PO SCH ×2 (09:37→17:17)
[2021-04-11] MEDS: QUEtiapine 25 MG TABLET. PO SCH (09:37)
[2021-04-11] MEDS: LISINOPRIL 20 MG TABLET PO SCH (09:38)
[2021-04-11] MEDS: amLODIPine BESYLATE 10 MG TABLET PO SCH (09:38)
[2021-04-11] MEDS: ASCORBIC ACID 500 MG TABLET PO SCH (09:38)
[2021-04-11] MEDS: SERTRALINE 50 MG TABLET. PO SCH (09:38)
--- NOTE | 2021-04-11 11:10 | NUR ---
WEEKLY ACTIVITY THERAPY NOTE Date of Admission: 03/28/21 Date of AT Assessment: 03/29 Precipitating behaviors that initiated intake and admission:verbally aggressive towards staff and is physically aggressive during cares and agitated. Goal aimed: increase socialization and engagement Initial Goal: Pt will participate in at least five individual or group Activity Therapy sessions per week Weekly progress towards goal: did not achieve Group participation level: no participation Weekly highlights: no participation Behaviors observed: declines group activity offers, withdrawn to room, no interest in groups Plan: change goal to: Pt will participate in at least five individual or group Activity Therapy sessions before discharge. Beneficial adaptations: encouragement and redirection
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
--- NOTE | 2021-04-11 13:21 | NUR ---
Pt has been demanding and refusing to help during cares. She tries to state that her legs and arms do not work and have no strength, but yesterday was able to pull up on the bar lift herself while I pulled her pants down so she could be toileted. I spoke with pt about continuing to participate in her care and to help the staff when she is transferring. I told her that I had spoken with her care facility she will be returning to with the yesterday and told them she is only a 1 person assist and that she is able to pull up on the bar and able to stand very well. I told her that the facility is going to be continuing her care this way when she goes back. I then said if she was ready to stand and help me to help her to the toilet that we would do so, she stood perfectly and without hesitation. I encouraged her saying "doesn't it feel great to have some independence of your own?" and she replied that it did and thanked me. Pt later made a statement to me that she has a house of her own and she could continue to behavior the way she wants, because if Katey Kima were to ask her to leave she would just hire a nurse to care for her at home. I explained to her how hard it is to staff a nurse 24 hours a day and how much a nursing shortage there is all over the world right now. I explained to her that it is not that simple of an answer and that she is in an extremely nice facility and she would want to continue to be in this facility. She made a statement about having the money to pay for an in home nurse and that if she has the money to do it, then it does not matter. I again explained to her that 24 hour care is very rare and EXTREMELY hard to staff and then when nurses call in sick or if you may not like the particular nurse you hire, then the care would fall upon your family, which has not worked out in the past. I told her that her best option was to continue to do well and seek as much independence as she can for herself at [facility] and she will do great. She seemed to do better throughout the day after that conversation, helping more with her care and being more compliant and not trying to start arguments. Doctor increased Zoloft from 50mg to 75mg daily. Pt will continue to be monitored.
[2021-04-11 14:09] LABS: BASO # 0.1 x10^3/uL (0.0-0.2); BASO % 1 % (0-3); EOS # 0.3 x10^3/uL (0.0-0.7); EOS % 6 % (0-3); HEMATOCRIT 27.2 % (36.0-47.0); HEMOGLOBIN 9.3 g/dL (12.0-15.5); LYMPH # 0.9 x10^3/uL (1.0-4.8); LYMPH % 16 % (24-48); MEAN CORPUSCULAR HEMOGLOBIN 33 pg (25-35); MEAN CORPUSCULAR HGB CONC 34 g/dL (31-37); MEAN CORPUSCULAR VOLUME 96 fL (79-100); MONO # 0.5 x10^3/uL (0.0-1.1); MONO % 9 % (0-9); NEUT % 68 % (31-73); PLATELET COUNT 250 x10^3/uL (140-400); RED BLOOD COUNT 2.85 x10^6/uL (3.50-5.40); RED CELL DISTRIBUTION WIDTH 13.3 % (11.5-14.5); WHITE BLOOD COUNT 5.9 x10^3/uL (4.0-11.0)
[2021-04-11 15:51] VITALS: BP 121/53
[2021-04-11 20:00] VITALS: BP 125/67
[2021-04-11] MEDS: ACETAMINOPHEN 325 MG TABLET PO PRN (20:03)
[2021-04-11] MEDS: ATORVASTATIN CALCIUM 20 MG TABLET PO SCH (20:03)
[2021-04-11] MEDS: INSULIN GLARGINE SYRINGE. SQ SCH (21:50)
--- NOTE | 2021-04-12 00:23 | NUR ---
Nursing Note The patient was located in her room for her assessment and medication pass. The patient requested PRN Tylenol with her HS medication r/t headache. The patient was compliant with her medications and took them whole. The patient was very difficult to transfer due to lack of help from the patient. The patient is currently sleeping in her room.
--- NOTE | 2021-04-12 02:34 | PN ---
DATE: 04/11/2021 SUBJECTIVE: The patient was seen today, met with the staff, chart reviewed. Also, covering for Dr. Addison. Staff reports increased withdrawal , demanding, having frequent complaints. The patient is dependent on staff for her needs. OBSERVATION: VITAL SIGNS: Temperature 97.4, blood pressure 121/53, pulse 60, respirations 17, O2 sat 98%. GENERAL: The patient is sleeping fair. LABORATORY DATA: The patient's lab reviewed. CURRENT MEDICATIONS: Zoloft 50 mg daily, olanzapine 2.5 mg q.2 hours p.r.n., Seroquel 50 mg daily and 25 mg daily, lorazepam 0.5 mg twice a day. The patient is not having any side effects to medications. ASSESSMENT: 1. Major depression, recurrent. 2. Generalized anxiety disorder. 3. Impulse control disorder, unspecified. PLAN: To continue with treatment. LENGTH OF STAY: [address]: Sherman TID: [id number]
[2021-04-12] MEDS: LEVOTHYROXINE 125 MCG TABLET PO SCH (06:21)
[2021-04-12] MEDS: INSULIN LISPRO 300 UNITS/3 ML VIAL. SQ SCH ×3 (07:30→16:30)
[2021-04-12] MEDS: QUEtiapine 50 MG TABLET. PO SCH (08:48)
[2021-04-12] MEDS: QUEtiapine 25 MG TABLET. PO SCH (08:48)
[2021-04-12] MEDS: ASCORBIC ACID 500 MG TABLET PO SCH (08:49)
[2021-04-12] MEDS: amLODIPine BESYLATE 10 MG TABLET PO SCH (08:49)
[2021-04-12] MEDS: LISINOPRIL 20 MG TABLET PO SCH (08:49)
[2021-04-12] MEDS: CARVEDILOL 12.5 MG TABLET PO SCH ×2 (08:49→17:38)
[2021-04-12] MEDS: MULTIVITAMIN with MINERAL TABLET. PO SCH (08:50)
[2021-04-12] MEDS: LACTOBACILLUS RHAMNOSUS GG 1 CAPSULE. PO SCH ×2 (08:50→20:52)
[2021-04-12] MEDS: LORazepam 0.5 MG TABLET PO SCH ×2 (08:55→20:55)
[2021-04-12] MEDS: SERTRALINE 50 MG TABLET. PO SCH (08:56)
[2021-04-12] MEDS: PANTOPRAZOLE 40 MG TABLET. PO SCH (08:56)
[2021-04-12 10:41] VITALS: BP 121/53
--- NOTE | 2021-04-12 16:02 | NUR ---
The patient was compliant with her medications and took them whole. The patient was very difficult to transfer due to lack of help from the patient. The patient is currently sleeping in her room. Patient with boot to right leg to remain on at a all times. Dressing to right lateral foot clean and intact. Right leg swollen Doctor notified order for Venous Doppler. Patient sensitivity has returned from lab new orders for Cefdinir.
[2021-04-12 16:05] VITALS: BP 105/54
--- NOTE | 2021-04-12 16:55 | RAD ---
EXAM: Right lower extremity venous Doppler sonogram. HISTORY: Pain and swelling. TECHNIQUE: Adam scale and color Doppler sonographic evaluation of the right lower extremity veins wit h spectral waveform analysis was performed. FINDINGS: There is normal color flow and there are normal spectral waveforms in the common femoral, s uperficial femoral, popliteal, posterior tibial and greater saphenous veins. The patient was unable t o tolerate compression or augmentation imaging. The calf veins are well seen due to edema. IMPRESSION: No Doppler evidence of lower extremity deep venous thrombosis, with limited evaluation du e to patient discomfort and soft tissue edema. Electronically signed by: Radha Lin MD (04/12/2021 4:53 PM) [facility]
[2021-04-12] MEDS: ATORVASTATIN CALCIUM 20 MG TABLET PO SCH (20:52)
[2021-04-12] MEDS: INSULIN GLARGINE SYRINGE. SQ SCH (20:54)
[2021-04-12] MEDS: CEFDINIR 300 MG CAPSULE PO SCH (20:55)
--- NOTE | 2021-04-12 23:50 | NUR ---
Nursing Note The patient was located in bed for her assessment and medication pass. The patient was drowsy by the time this nurse was able to do her assessment. The patient was alert to name and that this is the hospital. The patient was compliant with her medications and took them whole. The patient is currently sleeping in her room.
--- NOTE | 2021-04-13 05:32 | PN ---
DATE: 04/12/2021 SUBJECTIVE: The patient was seen today, met with the staff, chart reviewed. Staff reports the patient is still very needy, demanding, refusing to take any responsibilities. The patient is totally dependent on the staff. She still withdrawn, isolative. OBSERVATION: VITAL SIGNS: Temperature 97.8, blood pressure 125/67, pulse 61, respirations 18, O2 sat 97%. GENERAL: Slept about 7 hours last night. The patient's appetite is fair. CURRENT MEDICATIONS: Include Zoloft 50 mg daily, olanzapine 2.5 mg q. 2 hours p.r.n., Seroquel 50 mg daily and 25 mg daily, lorazepam 0.5 mg twice a day. The patient is not having any side effects to medications. LABORATORY DATA: The patient's lab reviewed. ASSESSMENT: 1. Major depression, recurrent. 2. Generalized anxiety disorder. 3. Impulse control disorder, unspecified. PLAN: To continue with the treatment. LENGTH OF STAY: Seven days. QUINTON DR: Sherman TID: [id number]
[2021-04-13] MEDS: LEVOTHYROXINE 125 MCG TABLET PO SCH (05:43)
[2021-04-13 06:25] VITALS: BP 119/66
[2021-04-13] MEDS: INSULIN LISPRO 300 UNITS/3 ML VIAL. SQ SCH ×3 (07:30→17:16)
[2021-04-13] MEDS: QUEtiapine 25 MG TABLET. PO SCH (08:52)
[2021-04-13] MEDS: CARVEDILOL 12.5 MG TABLET PO SCH ×2 (08:52→17:14)
[2021-04-13] MEDS: MULTIVITAMIN with MINERAL TABLET. PO SCH (08:52)
[2021-04-13] MEDS: LACTOBACILLUS RHAMNOSUS GG 1 CAPSULE. PO SCH ×2 (08:52→19:21)
[2021-04-13] MEDS: ACETAMINOPHEN 325 MG TABLET PO PRN ×2 (08:53→19:21)
[2021-04-13] MEDS: QUEtiapine 50 MG TABLET. PO SCH (08:53)
[2021-04-13] MEDS: amLODIPine BESYLATE 10 MG TABLET PO SCH (08:53)
[2021-04-13] MEDS: CEFDINIR 300 MG CAPSULE PO SCH ×2 (08:53→19:22)
[2021-04-13] MEDS: SERTRALINE 50 MG TABLET. PO SCH (08:54)
[2021-04-13] MEDS: LISINOPRIL 20 MG TABLET PO SCH (08:55)
[2021-04-13] MEDS: PANTOPRAZOLE 40 MG TABLET. PO SCH (08:55)
[2021-04-13] MEDS: ASCORBIC ACID 500 MG TABLET PO SCH (08:55)
[2021-04-13] MEDS: LORazepam 0.5 MG TABLET PO SCH ×2 (09:00→19:22)
--- NOTE | 2021-04-13 11:25 | NUR ---
Patient compliant with medication and cooperative with staff. patient ask staff nicely for anything she needs . Patient with blue boot to right leg. +3 edema to right foot. +2 edema to Left foot. Doppler results back no DVT present. circulation noticed. Patient received Tylenol @0845 for back pain. Patient reaccessed she says pain has lifted a bit. Pt. still must be encouraged to help with transfers.
[2021-04-13 15:40] VITALS: BP 105/60
[2021-04-13] MEDS: ATORVASTATIN CALCIUM 20 MG TABLET PO SCH (19:21)
[2021-04-13] MEDS: INSULIN GLARGINE SYRINGE. SQ SCH (21:31)
--- NOTE | 2021-04-14 01:09 | NUR ---
Nursing Note Compliant with medication and assessment. The patient took her medication whole and was alert to name and that she is in the hospital. The patient was located in bed for interactions with this nurse. Currently sleeping in her room.
--- NOTE | 2021-04-14 01:33 | PN ---
DATE: 04/13/2021 SUBJECTIVE: The patient was seen today, met with the staff, chart reviewed, and also covering for Dr. Addison. Staff reports increased social isolation, stays in her room most of the time, tend to be demanding, but medication compliant. The patient is dependent on the staff for ADLs. The patient is refusing to take any responsibilities with regard to her care at times. OBSERVATION: VITAL SIGNS: Temperature 97.9, blood pressure 105/60, pulse 59, respirations 16, O2 sat 96%. CURRENT MEDICATIONS: Include Zoloft 50 mg daily, olanzapine 2.5 mg q. 2 hours p.r.n., Seroquel 50 mg daily and 25 mg daily, and lorazepam 0.5 mg twice a day. The patient is not having any major physical complaints except complaining of edema of the right foot. LABORATORY DATA: The patient's lab reviewed. ASSESSMENT: 1. Major depression, recurrent. 2. Generalized anxiety disorder. 3. Impulse control disorder, unspecified. PLAN: To continue with the treatment. LENGTH OF STAY: [address]: Sherman TID: [id number]
[2021-04-14] MEDS: LEVOTHYROXINE 125 MCG TABLET PO SCH (05:47)
[2021-04-14 06:03] VITALS: BP 107/62
[2021-04-14] MEDS: INSULIN LISPRO 300 UNITS/3 ML VIAL. SQ SCH ×3 (07:30→16:30)
[2021-04-14] MEDS: LISINOPRIL 20 MG TABLET PO SCH (08:21)
[2021-04-14] MEDS: LACTOBACILLUS RHAMNOSUS GG 1 CAPSULE. PO SCH ×2 (08:21→20:11)
[2021-04-14] MEDS: QUEtiapine 50 MG TABLET. PO SCH (08:21)
[2021-04-14] MEDS: PANTOPRAZOLE 40 MG TABLET. PO SCH (08:21)
[2021-04-14] MEDS: CEFDINIR 300 MG CAPSULE PO SCH ×2 (08:22→20:11)
[2021-04-14] MEDS: MULTIVITAMIN with MINERAL TABLET. PO SCH (08:22)
[2021-04-14] MEDS: QUEtiapine 25 MG TABLET. PO SCH (08:22)
[2021-04-14] MEDS: amLODIPine BESYLATE 10 MG TABLET PO SCH (08:22)
[2021-04-14] MEDS: SERTRALINE 50 MG TABLET. PO SCH (08:22)
[2021-04-14] MEDS: ASCORBIC ACID 500 MG TABLET PO SCH (08:23)
[2021-04-14] MEDS: CARVEDILOL 12.5 MG TABLET PO SCH ×2 (08:23→17:00)
[2021-04-14] MEDS: LORazepam 0.5 MG TABLET PO SCH ×2 (08:31→20:11)
--- NOTE | 2021-04-14 10:35 | NUR ---
Pt A&O to self only, absent of SI/HI/VH/AH/delusions at this time. She is compliant with whole medications. At this time no helpless behaviors have been observed. Her interactions with others has been minimal (she stays mostly in her room) but the few interactions she has had thus far have been appropriate. After breakfast she was wanting to get back into bed, this request was not accommodated d/t pt just barely waking up for breakfast 2 hours prior. Pt encouraged to participate with other patients during the course of the day. Plan of care continues, will pass to next shift.
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
[2021-04-14 15:36] VITALS: BP 116/71
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
[2021-04-14] MEDS: ATORVASTATIN CALCIUM 20 MG TABLET PO SCH (20:11)
[2021-04-14] MEDS: INSULIN GLARGINE SYRINGE. SQ SCH (20:13)
[2021-04-14] MEDS: ACETAMINOPHEN 325 MG TABLET PO PRN (20:15)
--- NOTE | 2021-04-14 22:15 | NUR ---
Pt sitting up in her w/c in her room when approached. Pt irritable and snarky with her responses to staff questions, acts helpless at times during cares. Pt cooperative with assessment and compliant with medications administered whole although complained with insulin administration, reporting "ouch! That hurt!" Pt was also argumentative with MOP WORKER at HS when MOP WORKER attempting to assist her with changing her clothes for bed, insisting that she sleep in her clothing.
--- NOTE | 2021-04-14 22:22 | PN ---
DATE: 04/14/2021 SUBJECTIVE: The patient was seen today, met with the staff, chart reviewed. Staff reports no major behavioral problems. She is medication compliant, tend to stay in the room. She is feeling helpless, also expects staff to help her out and she had difficulty taking care of her ADLs. The patient is medication compliant. OBSERVATION: VITAL SIGNS: Temperature 97.4, blood pressure 107/62, pulse 64, respirations 18, O2 sat 97%. GENERAL: Slept about 8 hours last night. The patient's appetite is fair. CURRENT MEDICATIONS: The patient's current medications include Zoloft 50 mg daily, olanzapine 2.5 mg q. 2 hours p.r.n., Seroquel 50 mg daily and 25 mg daily, lorazepam 0.5 mg twice a day. The patient denies of any side effects to medications. ASSESSMENT: 1. Major depression, recurrent. 2. Generalized anxiety disorder. 3. Impulse control disorder, unspecified. PLAN: To continue with treatment. LENGTH OF STAY: Seven days. TESSIE DR: Sherman TID: [id number]
[2021-04-15] MEDS: LEVOTHYROXINE 125 MCG TABLET PO SCH (05:17)
[2021-04-15 05:53] VITALS: BP 119/66
[2021-04-15] MEDS: ACETAMINOPHEN 325 MG TABLET PO PRN ×3 (06:02→20:35)
[2021-04-15] MEDS: INSULIN LISPRO 300 UNITS/3 ML VIAL. SQ SCH ×3 (07:28→16:30)
[2021-04-15] MEDS: MULTIVITAMIN with MINERAL TABLET. PO SCH (08:09)
[2021-04-15] MEDS: QUEtiapine 25 MG TABLET. PO SCH (08:09)
[2021-04-15] MEDS: ASCORBIC ACID 500 MG TABLET PO SCH (08:09)
[2021-04-15] MEDS: QUEtiapine 50 MG TABLET. PO SCH (08:10)
[2021-04-15] MEDS: LORazepam 0.5 MG TABLET PO SCH ×2 (08:10→20:29)
[2021-04-15] MEDS: PANTOPRAZOLE 40 MG TABLET. PO SCH (08:10)
[2021-04-15] MEDS: CARVEDILOL 12.5 MG TABLET PO SCH ×2 (08:10→17:31)
[2021-04-15] MEDS: LACTOBACILLUS RHAMNOSUS GG 1 CAPSULE. PO SCH ×2 (08:10→20:29)
[2021-04-15] MEDS: SERTRALINE 50 MG TABLET. PO SCH (08:10)
[2021-04-15] MEDS: LISINOPRIL 20 MG TABLET PO SCH (08:11)
[2021-04-15] MEDS: CEFDINIR 300 MG CAPSULE PO SCH ×2 (08:11→20:29)
[2021-04-15] MEDS: amLODIPine BESYLATE 10 MG TABLET PO SCH (08:11)
--- NOTE | 2021-04-15 10:33 | NUR ---
Pt A&O to name, , place; absent of SI/HI/VH/AH/delusions at this time. She denies pain when asked, dressings to R foot CDI. Alexander catheter patent, yellow cloudy urine observed in bag. She is compliant with whole medications. Pt appropriate with her interactions with others. Pt med compliant and appetite appears adequate during breakfast. Plan of care continues, will pass to next shift.
--- NOTE | 2021-04-15 14:53 | NUR ---
Pt c/o 12/27 headache. PRN Acetaminophen 650 mg PO administered at her request.
[2021-04-15 16:14] VITALS: BP 111/65
[2021-04-15] MEDS: ATORVASTATIN CALCIUM 20 MG TABLET PO SCH (20:29)
[2021-04-15] MEDS: INSULIN GLARGINE SYRINGE. SQ SCH (20:31)
--- NOTE | 2021-04-16 00:03 | NUR ---
Pt withdrawn to room, sitting up in w/c when approached. Pt calm, pleasant, and appropriate this evening. Pt cooperative with assessment and compliant with medications administered whole. No agitation or aggression noted thus far this shift.
--- NOTE | 2021-04-16 02:04 | PN ---
DATE: 04/15/2021 SUBJECTIVE: The patient was seen today, met with the staff, chart reviewed. Staff reports no major problems. She is medication compliant, tend to stay in her room most of the time. The patient has been participating in some of the activities. OBSERVATION: VITAL SIGNS: Temperature 98.1, blood pressure 119/66, pulse 62, respirations 18, O2 sat 96%. GENERAL: Slept about 8 hours last night. CURRENT MEDICATIONS: Include Zoloft 50 mg daily, olanzapine 2.5 mg q.2 hours p.r.n., Seroquel 50 mg daily and 25 mg daily, lorazepam 0.5 mg twice a day. The patient denies of any side effects. ASSESSMENT: 1. Major depressive disorder, recurrent. 2. Generalized anxiety disorder. 3. Impulse control disorder, unspecified. PLAN: To continue with the treatment. LENGTH OF STAY: [address]: Sherman TID: [id number] [facility]
[2021-04-16] MEDS: LEVOTHYROXINE 125 MCG TABLET PO SCH (05:21)
[2021-04-16] MEDS: ACETAMINOPHEN 325 MG TABLET PO PRN ×3 (05:46→20:53)
[2021-04-16 06:17] VITALS: BP 119/66
[2021-04-16] MEDS: INSULIN LISPRO 300 UNITS/3 ML VIAL. SQ SCH ×3 (07:30→17:28)
[2021-04-16] MEDS: QUEtiapine 50 MG TABLET. PO SCH (08:57)
[2021-04-16] MEDS: ASCORBIC ACID 500 MG TABLET PO SCH (08:58)
[2021-04-16] MEDS: PANTOPRAZOLE 40 MG TABLET. PO SCH (08:58)
[2021-04-16] MEDS: LORazepam 0.5 MG TABLET PO SCH ×2 (08:58→20:52)
[2021-04-16] MEDS: CARVEDILOL 12.5 MG TABLET PO SCH ×2 (08:58→17:30)
[2021-04-16] MEDS: QUEtiapine 25 MG TABLET. PO SCH (08:58)
[2021-04-16] MEDS: LACTOBACILLUS RHAMNOSUS GG 1 CAPSULE. PO SCH ×2 (08:58→20:52)
[2021-04-16] MEDS: CEFDINIR 300 MG CAPSULE PO SCH ×2 (08:58→20:52)
[2021-04-16] MEDS: SERTRALINE 50 MG TABLET. PO SCH (08:58)
[2021-04-16] MEDS: MULTIVITAMIN with MINERAL TABLET. PO SCH (08:58)
[2021-04-16] MEDS: amLODIPine BESYLATE 10 MG TABLET PO SCH (08:58)
[2021-04-16] MEDS: LISINOPRIL 20 MG TABLET PO SCH (08:58)
--- NOTE | 2021-04-16 15:09 | NUR ---
Nursing note: Patient in dinning room for morning medications & assessment. She is compliant with medications taken whole. She is A/O X 2, unable to voice 28, place, or situation. Patient can be demanding, acts as if she can't do things herself, withdrawn. She propels self in w/c, 2 person assist for transfers. Alexander patent with clear yellow urine noted. She is currently resting in bed with eyes closed. Will continue to monitor.
[2021-04-16 16:08] VITALS: BP 128/60
--- NOTE | 2021-04-16 16:15 | NUR ---
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 Wounds cleansed, assessed, and measured. R 5th toe amputation site, DFU, has become to break down and soften and loosen the eschar. The right heel remains stable and will continue to be protected. patient very pleasant during assessment. Treatment Recommendations/Plan: Recommendations for Honey alginate to wound right 5th toe amputation site DFU and cover with foam dressing and skin prep and foam dressing to the right heel DFU. Change on Thursday and Thursday. Continue to offload using podus boot. Dressings applied. Education provided: POC discussed with patient, but patient confused at times due to mental status. Offloading surface/device: Patient has podus boot and we placed it back on patient during time of assessment. No other wounds noted. Recommended Referrals/Tests: n/a Discharge Recommendations for dressings: Dressing change instructions left at the nurses station as well as extra honey alginate for next dressing changes. Bed lowered and patient resting comfortably. Wound care will follow up on 04/23/21.
[2021-04-16] MEDS: ATORVASTATIN CALCIUM 20 MG TABLET PO SCH (20:52)
[2021-04-16] MEDS: INSULIN GLARGINE SYRINGE. SQ SCH (20:57)
--- NOTE | 2021-04-17 01:43 | NUR ---
Pt withdrawn to room, lying in bed when approached. Pt calm, pleasant, and appropriate this evening. Pt cooperative with assessment and compliant with medications administered whole. PRN Tylenol for c/o generalized aches and pains administered as ordered @2052. No agitation or aggression noted thus far this shift.
--- NOTE | 2021-04-17 02:34 | PN ---
DATE: 04/16/2021 SUBJECTIVE: The patient was seen today, met with the staff, chart reviewed. Staff reports no major behavior problems, she is medication compliant, tend to isolate herself in her room, overall her behavior has been appropriate. She also interacted with a roommate. She is also dependent on staff for ADLs. OBSERVATION: VITAL SIGNS: Temperature 98.6, blood pressure 119/66, pulse 64, respirations 18, O2 sat 96%. GENERAL: Slept about 7 hours last night. The patient's appetite improved. LABORATORY DATA: Patient's lab reviewed. ASSESSMENT: 1. Major depressive disorder, recurrent. 2. Generalized anxiety disorder. 3. Impulse control disorder, unspecified. PLAN: To continue with treatment. LENGTH OF STAY: Seven days. TESSIE DR: Sherman TID: [id number]
[2021-04-17] MEDS: LEVOTHYROXINE 125 MCG TABLET PO SCH (05:48)
[2021-04-17] MEDS: ACETAMINOPHEN 325 MG TABLET PO PRN (05:49)
[2021-04-17 06:36] VITALS: BP 127/70
[2021-04-17] MEDS: QUEtiapine 25 MG TABLET. PO SCH (08:17)
[2021-04-17] MEDS: ALENDRONATE SODIUM 35 MG TABLET PO SCH (08:17)
[2021-04-17] MEDS: CEFDINIR 300 MG CAPSULE PO SCH ×2 (08:17→21:19)
[2021-04-17] MEDS: SERTRALINE 50 MG TABLET. PO SCH (08:18)
[2021-04-17] MEDS: PANTOPRAZOLE 40 MG TABLET. PO SCH (08:19)
[2021-04-17] MEDS: CARVEDILOL 12.5 MG TABLET PO SCH ×2 (08:19→17:22)
[2021-04-17] MEDS: LORazepam 0.5 MG TABLET PO SCH ×2 (08:19→21:19)
[2021-04-17] MEDS: LACTOBACILLUS RHAMNOSUS GG 1 CAPSULE. PO SCH ×2 (08:19→21:19)
[2021-04-17] MEDS: ASCORBIC ACID 500 MG TABLET PO SCH (08:19)
[2021-04-17] MEDS: QUEtiapine 50 MG TABLET. PO SCH (08:19)
[2021-04-17] MEDS: amLODIPine BESYLATE 10 MG TABLET PO SCH (08:20)
[2021-04-17] MEDS: INSULIN LISPRO 300 UNITS/3 ML VIAL. SQ SCH ×3 (08:22→17:24)
[2021-04-17] MEDS: MULTIVITAMIN with MINERAL TABLET. PO SCH (08:29)
[2021-04-17] MEDS: LISINOPRIL 20 MG TABLET PO SCH (08:29)
--- NOTE | 2021-04-17 15:32 | NUR ---
HILDA spoke with pt son/DPOA, Bruno, and Miguelangel at pt facility, [facility]. HILDA provided update and reported that pt would be staffed during treatment team tomorrow and most likely would be given the okay for D/C on Thursday. Miguelangel informed this SW to just call her tomorrow 04/18/21 following treatment team and she would then arrange for transportation to pick pt up in Thursday. HILDA faxed updates to Miguelangel with successful transmittal received. IHLDA requested staff reporter to go ahead and get D/C med orders signed in the am in anticipation of Thursday d/c. Bruno and Miguelangel appreciative of update.
[2021-04-17 15:39] VITALS: BP 125/64
[2021-04-17] MEDS: ATORVASTATIN CALCIUM 20 MG TABLET PO SCH (21:19)
[2021-04-17] MEDS: INSULIN GLARGINE SYRINGE. SQ SCH (21:22)
--- NOTE | 2021-04-18 01:30 | NUR ---
Patient compliant with medications and assessment. She is very demanding about the angle of the head of the bed and the angle of the pillow. Nurse adjusted bed multiple times and moved pillow for patient. Patient helpless, she is capable of adjusting her own pillow. Patient on ABS for UTI.
[2021-04-18] MEDS ORDERED: INSU100V SQ (03:20)
[2021-04-18] MEDS ORDERED: INSU100V8 SQ (03:24)
--- NOTE | 2021-04-18 03:24 | PN ---
DATE: 04/17/2021 SUBJECTIVE: The patient was seen today, met with the staff, chart reviewed. Staff reports no major behavior problems except she tends to withdraw herself, stays in her room most of the time. Behavior has been appropriate, pleasant and medication compliant. OBSERVATION: VITAL SIGNS: Temperature 97.9, blood pressure 127/70, pulse 67, respirations 16, O2 sat 96%. GENERAL: Slept about 7 hours last night. The patient's appetite improved. CURRENT MEDICATIONS: Include Zoloft 75 mg daily, olanzapine 2.5 mg q. 2 hours p.r.n., Seroquel 50 mg daily and 25 mg daily, lorazepam 0.5 mg twice a day. The patient is not having any side effects to medications. LABORATORY DATA: The patient's lab reviewed. ASSESSMENT: 1. Major depressive disorder, recurrent. 2. Generalized anxiety disorder. 3. Impulse control disorder, unspecified. PLAN: Continue with treatment. LENGTH OF STAY: 7 days. NIRAV/SERA DR: Sherman TID: [id number]
[2021-04-18] MEDS ORDERED: CEFD300C PO (03:28)
[2021-04-18] MEDS ORDERED: MAGN24003 PO (03:32)
[2021-04-18] MEDS ORDERED: MAG-124 PO (03:32)
[2021-04-18] MEDS ORDERED: TROL90CR TP (03:33)
[2021-04-18] MEDS ORDERED: METH57CR17 TP (03:35)
[2021-04-18] MEDS ORDERED: OLAN5TAB67 PO (03:37)
[2021-04-18] MEDS ORDERED: SERT25TA PO (03:39)
[2021-04-18] MEDS: LEVOTHYROXINE 125 MCG TABLET PO SCH (05:46)
[2021-04-18 06:37] VITALS: BP 125/50
[2021-04-18 07:47] LABS: ALBUMIN 2.7 g/dL (3.4-5.0); ALBUMIN/GLOBULIN RATIO 0.8 (1.0-1.7); CALCIUM 8.2 mg/dL (8.5-10.1); GFR 53.8; POTASSIUM 5.3 mmol/L (3.5-5.1); TOTAL BILIRUBIN 0.3 mg/dL (0.2-1.0)
[2021-04-18 07:49] LABS: BASO # 0.1 x10^3/uL (0.0-0.2); BASO % 1 % (0-3); EOS # 0.3 x10^3/uL (0.0-0.7); EOS % 7 % (0-3); HEMATOCRIT 22.7 % (36.0-47.0); HEMOGLOBIN 7.8 g/dL (12.0-15.5); LYMPH # 0.8 x10^3/uL (1.0-4.8); LYMPH % 18 % (24-48); MEAN CORPUSCULAR HEMOGLOBIN 33 pg (25-35); MEAN CORPUSCULAR HGB CONC 34 g/dL (31-37); MEAN CORPUSCULAR VOLUME 96 fL (79-100); MONO # 0.4 x10^3/uL (0.0-1.1); MONO % 8 % (0-9); NEUT # 2.8 x10^3uL (1.8-7.7); NEUT % 65 % (31-73); PLATELET COUNT 241 x10^3/uL (140-400); RED BLOOD COUNT 2.37 x10^6/uL (3.50-5.40); RED CELL DISTRIBUTION WIDTH 13.5 % (11.5-14.5); WHITE BLOOD COUNT 4.3 x10^3/uL (4.0-11.0)
[2021-04-18] MEDS: QUEtiapine 50 MG TABLET. PO SCH (08:10)
[2021-04-18] MEDS: LISINOPRIL 20 MG TABLET PO SCH (08:12)
[2021-04-18] MEDS: SERTRALINE 50 MG TABLET. PO SCH (08:12)
[2021-04-18] MEDS: MULTIVITAMIN with MINERAL TABLET. PO SCH (08:12)
[2021-04-18] MEDS: ASCORBIC ACID 500 MG TABLET PO SCH (08:12)
[2021-04-18] MEDS: LORazepam 0.5 MG TABLET PO SCH ×2 (08:12→21:58)
[2021-04-18] MEDS: QUEtiapine 25 MG TABLET. PO SCH (08:13)
[2021-04-18] MEDS: PANTOPRAZOLE 40 MG TABLET. PO SCH (08:13)
[2021-04-18] MEDS: CARVEDILOL 12.5 MG TABLET PO SCH ×2 (08:14→17:21)
[2021-04-18] MEDS: INSULIN LISPRO 300 UNITS/3 ML VIAL. SQ SCH ×3 (08:15→17:23)
[2021-04-18] MEDS: amLODIPine BESYLATE 10 MG TABLET PO SCH (09:00)
[2021-04-18] MEDS: CEFDINIR 300 MG CAPSULE PO SCH ×2 (09:00→21:57)
[2021-04-18] MEDS: LACTOBACILLUS RHAMNOSUS GG 1 CAPSULE. PO SCH ×2 (09:00→21:57)
--- NOTE | 2021-04-18 11:16 | NUR ---
WEEKLY ACTIVITY THERAPY NOTE Date of Admission: 03/28/21 Date of AT Assessment: 03/29 Precipitating behaviors that initiated intake and admission:verbally aggressive towards staff and is physically aggressive during cares and agitated. Goal aimed: increase socialization and engagement Initial Goal: Pt will participate in at least five individual or group Activity Therapy sessions per week Goal changed 04/11:Pt will participate in at least five individual or group Activity Therapy sessions before discharge. Weekly progress towards goal: on tack (04/15-grid categories and weight lifting, 04/16-president PowerPoint, 04/17-comfort zones and draw a bug) Group participation level: 2 min, 1 mod Weekly highlights: grid categories, listened to [employer] PowerPoint Thursday afternoon Behaviors observed: reluctant to join groups, withdrawn to room at times Plan:no change to goal Beneficial adaptations: encouragement
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
--- NOTE | 2021-04-18 11:40 | NUR ---
[facility] Social Work Discharge Planning Form Patient Name FRIEDA BURROWS Admit Date: 03/28/20 DISCHARGE PLAN Discharge Destination: [facility] Assessment: No Level II Assessment: NO Transportation: [facility] will p/u at 1000. Special Instructions/Notes: Please fax signed med list and visit summary. DISCHARGE TO FACILITY Facility: [facility] Phone: Call [phone] for nursing report. Address: [address] [place], [place] [id number] Contact Name: ALLIE Holguin [phone] Exec Constantino Bueno [phone] Miguelangel [phone] PCP: Dr. Hogan Psychiatrist: None
[2021-04-18] MEDS: ACETAMINOPHEN 325 MG TABLET PO PRN (14:53)
[2021-04-18 15:58] VITALS: BP 124/77
[2021-04-18] MEDS: ATORVASTATIN CALCIUM 20 MG TABLET PO SCH (21:57)
[2021-04-18] MEDS: INSULIN GLARGINE SYRINGE. SQ SCH (22:09)
--- NOTE | 2021-04-18 22:12 | PDOC ---
Exam Note: Hayden Note: Please also refer to the separate dictated note~for this date of service dictated separately.~Patient seen individually. Discussed the patient with Nursing staff reviewed the chart.~Reviewed interim history and current functioning. Reviewed vital signs,~Labs/ Radiology~and current medications noted below. Continue current treatment with the changes noted in the dictated addendum note Assessment: Vital Signs/I&O: Vital Signs Date Time Temp Pulse Resp B/P (MAP) Pulse Ox O2 Delivery O2 Flow Rate FiO2 04/18/21 17:21 85 124/77 04/18/21 15:58 97.2 19 97 04/17/21 15:39 Room Air I & O 04/17/21 04/17/21 04/18/21 15:00 23:00 07:00 Intake Total 700 ml 80 ml 120 ml Output Total 500 ml Balance 700 ml 80 ml -380 ml Labs: Laboratory Tests Test 04/18/21 07:15 04/18/21 07:23 04/18/21 11:14 04/18/21 16:37 White Blood Count 4.3 x10^3/uL (4.0-11.0) Red Blood Count 2.37 x10^6/uL (3.50-5.40) L Hemoglobin 7.8 g/dL (12.0-15.5) L Hematocrit 22.7 % (36.0-47.0) L Mean Corpuscular Volume 96 fL (79-100) Mean Corpuscular Hemoglobin 33 pg (25-35) Mean Corpuscular Hemoglobin Concent 34 g/dL (31-37) Red Cell Distribution Width 13.5 % (11.5-14.5) Platelet Count 241 x10^3/uL (140-400) Neutrophils (%) (Auto) 65 % (31-73) Lymphocytes (%) (Auto) 18 % (24-48) L Monocytes (%) (Auto) 8 % (0-9) Eosinophils (%) (Auto) 7 % (0-3) H Basophils (%) (Auto) 1 % (0-3) Neutrophils # (Auto) 2.8 x10^3uL (1.8-7.7) Lymphocytes # (Auto) 0.8 x10^3/uL (1.0-4.8) L Monocytes # (Auto) 0.4 x10^3/uL (0.0-1.1) Eosinophils # (Auto) 0.3 x10^3/uL (0.0-0.7) Basophils # (Auto) 0.1 x10^3/uL (0.0-0.2) Sodium Level 137 mmol/L (136-145) Potassium Level 5.3 mmol/L (3.5-5.1) H Chloride Level 108 mmol/L (98-107) H Carbon Dioxide Level 20 mmol/L (21-32) L Anion Gap 9 (6-14) Blood Urea Nitrogen 34 mg/dL (7-20) H Creatinine 1.0 mg/dL (0.6-1.0) Estimated GFR (Cockcroft-Gault) 53.8 BUN/Creatinine Ratio 34 (6-20) H Glucose Level 156 mg/dL (70-99) H Calcium Level 8.2 mg/dL (8.5-10.1) L Total Bilirubin 0.3 mg/dL (0.2-1.0) Aspartate Amino Transferase (AST) 16 U/L (15-37) Alanine Aminotransferase (ALT) 25 U/L (14-59) Alkaline Phosphatase 57 U/L (46-116) Total Protein 6.0 g/dL (6.4-8.2) L Albumin 2.7 g/dL (3.4-5.0) L Albumin/Globulin Ratio 0.8 (1.0-1.7) L Glucose (Fingerstick) 142 mg/dL (70-99) H 285 mg/dL (70-99) H 170 mg/dL (70-99) H Test 04/18/21 19:33 Glucose (Fingerstick) 185 mg/dL (70-99) H Current Medications: Meds: Laboratory Tests Test 04/18/21 07:15 04/18/21 07:23 04/18/21 11:14 04/18/21 16:37 White Blood Count 4.3 x10^3/uL Red Blood Count 2.37 x10^6/uL Hemoglobin 7.8 g/dL Hematocrit 22.7 % Mean Corpuscular Volume 96 fL Mean Corpuscular Hemoglobin 33 pg Mean Corpuscular Hemoglobin Concent 34 g/dL Red Cell Distribution Width 13.5 % Platelet Count 241 x10^3/uL Neutrophils (%) (Auto) 65 % Lymphocytes (%) (Auto) 18 % Monocytes (%) (Auto) 8 % Eosinophils (%) (Auto) 7 % Basophils (%) (Auto) 1 % Neutrophils # (Auto) 2.8 x10^3uL Lymphocytes # (Auto) 0.8 x10^3/uL Monocytes # (Auto) 0.4 x10^3/uL Eosinophils # (Auto) 0.3 x10^3/uL Basophils # (Auto) 0.1 x10^3/uL Sodium Level 137 mmol/L Potassium Level 5.3 mmol/L Chloride Level 108 mmol/L Carbon Dioxide Level 20 mmol/L Anion Gap 9 Blood Urea Nitrogen 34 mg/dL Creatinine 1.0 mg/dL Estimated GFR (Cockcroft-Gault) 53.8 BUN/Creatinine Ratio 34 Glucose Level 156 mg/dL Calcium Level 8.2 mg/dL Total Bilirubin 0.3 mg/dL Aspartate Amino Transf (AST/SGOT) 16 U/L Alanine Aminotransferase (ALT/SGPT) 25 U/L Alkaline Phosphatase 57 U/L Total Protein 6.0 g/dL Albumin 2.7 g/dL Albumin/Globulin Ratio 0.8 Glucose (Fingerstick) 142 mg/dL 285 mg/dL 170 mg/dL Test 04/18/21 19:33 Glucose (Fingerstick) 185 mg/dL Current Medications Medications (Trade) Dose Ordered Sig/Lilly Route PRN Reason Start Time Stop Time Status Last Admin Dose Admin Acetaminophen (Tylenol) 650 mg PRN Q6HRS PRN PO MILD PAIN / TEMP > 100.3'F 03/28/21 19:30 04/18/21 14:53 Multi-Ingredient Ointment (Analgesic [place]) 1 billy PRN QID PRN TP MUSCLE PAIN 03/28/21 19:30 Al Hydroxide/Mg Hydroxide (Mylanta Plus Xs) 15 ml PRN AFTMEALHC PRN PO 2ND CHOICE DYSPEPSIA 03/28/21 19:30 Magnesium Hydroxide (Milk Of Magnesia) 2,400 mg PRN QHS PRN PO CONSTIPATION 03/28/21 19:30 Amlodipine Besylate (Norvasc) 10 mg DAILY PO 03/29/21 09:00 04/18/21 09:00 Bismuth Subsalicylate (Pepto-Bismol) 262 mg PRN Q6HRS PRN PO 1ST CHOICE DYSPEPSIA 03/28/21 20:00 Carvedilol (Coreg) 12.5 mg BIDWMEALS PO 03/29/21 08:00 04/18/21 17:21 Glimepiride (Amaryl) 3 mg BIDWMEALS PO 03/29/21 08:00 03/31/21 14:07 DC 03/30/21 17:00 Lisinopril (Prinivil) 20 mg DAILY PO 03/29/21 09:00 04/18/21 08:12 Non-Formulary Medication (Alendronate Sodium ) 70 mg WEEKLY PO 04/04/21 09:00 03/28/21 23:48 DC Ascorbic Acid (Vitamin C) 500 mg DAILY PO 03/29/21 09:00 04/18/21 08:12 Atorvastatin Calcium (Lipitor) 40 mg QHS PO 03/28/21 21:00 04/18/21 21:57 Non-Formulary Medication (Glimepiride ) 1 mg BID PO 03/28/21 21:00 UNV Insulin Glargine (Lantus Syringe) 20 unit DAILYWBKFT SQ 03/29/21 08:00 03/31/21 14:07 DC 03/30/21 09:14 Lactobacillus Rhamnosus (Culturelle) 1 cap BID PO 03/28/21 21:00 04/18/21 21:57 Levothyroxine Sodium (Synthroid) 125 mcg DAILY06 PO 03/29/21 06:00 04/18/21 05:46 Multivitamins/ Calcium (Thera-M Plus) 1 tab DAILY PO 03/29/21 09:00 04/18/21 08:12 Pantoprazole Sodium (Protonix) 40 mg DAILY PO 03/29/21 09:00 04/18/21 08:13 Linagliptin (Tradjenta) 5 mg DAILY PO 03/29/21 09:00 03/31/21 14:07 DC 03/30/21 09:09 Buspirone HCl (Buspar) 10 mg BID PO 03/28/21 21:00 03/29/21 20:13 DC 03/29/21 08:27 Divalproex Sodium (Depakote) 125 mg DAILY PO 03/29/21 09:00 04/01/21 19:42 DC 04/01/21 08:32 Lorazepam (Ativan) 0.5 mg BID PO 03/28/21 21:00 04/18/21 21:58 Quetiapine Fumarate (SEROquel) 25 mg DAILY PO 03/29/21 09:00 04/18/21 08:13 Quetiapine Fumarate (SEROquel) 50 mg DAILY PO 03/29/21 09:00 04/18/21 08:10 Insulin Human Lispro (HumaLOG) 0-7 UNITS TIDWMEALS SQ 03/29/21 08:00 03/28/21 23:36 DC Dextrose (Dextrose 50%-Water Syringe) 12.5 gm PRN Q15MIN PRN IV SEE COMMENTS 03/28/21 23:15 Insulin Human Lispro (HumaLOG) 0-7 UNITS BIDWMEALS SQ 03/29/21 09:00 03/31/21 14:07 DC 03/30/21 17:00 Alendronate Sodium (Fosamax) 70 mg WEEKLYAC PO 04/03/21 07:00 04/17/21 08:17 Sertraline HCl (Zoloft) 25 mg DAILY PO 03/30/21 09:00 04/04/21 11:28 DC 04/04/21 08:37 Insulin Human Lispro (HumaLOG) 0-7 UNITS TIDAC SQ 03/31/21 16:30 04/18/21 17:23 Sertraline HCl (Zoloft) 50 mg DAILY PO 04/05/21 09:00 04/11/21 11:03 DC 04/11/21 09:38 Olanzapine (ZyPREXA ZYDIS) 7.5 mg PRN Q2HR PRN PO PSYCHOSIS 04/04/21 11:30 04/04/21 20:02 DC Olanzapine (ZyPREXA ZYDIS) 2.5 mg PRN Q2HR PRN PO PSYCHOSIS 04/04/21 20:00 Insulin Glargine (Lantus Syringe) 10 unit QHS SQ 04/10/21 21:00 04/18/21 22:09 Sertraline HCl (Zoloft) 75 mg DAILY PO 04/12/21 09:00 04/18/21 08:12 Cefdinir (Omnicef) 300 mg BID PO 04/12/21 21:00 04/20/21 21:00 04/18/21 21:57 I have reviewed the current psychotropics carefully including drug interactions. Risk benefit ratio favors no change other than as noted in my dictated progress note. Diagnosis: Problems: (1) Major depressive disorder, recurrent episode (2) Impulse control disorder, unspecified (3) Anxiety disorder, unspecified (4) Mild cognitive impairment VISHAL SWAIN MD Apr 18, 2021 22:12
--- NOTE | 2021-04-19 01:22 | NUR ---
Patient was asleep in bed when nurse entered room with medications. Patient asked what time it was (2200) and took medications whole, one at a time. Patient did not complain of back pain, stated that the Tylenol that she had been given earlier had helped her. Patient had labs this morning, K+ 5.3, will pass on to next shift to notify hospitalist. Patient continues to wear boot on her R foot, her heal is boggy with breakdown. 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 Patient is scheduled to discharge tomorrow and return to [facility].
--- NOTE | 2021-04-19 02:50 | NUR ---
Labs done 04/18 resulted: RBC 2.37, HGB 7.8, Hematocrit 22.7. Added to hospitalist list and will pass on to day nurse in shift report.
[2021-04-19] MEDS: LEVOTHYROXINE 125 MCG TABLET PO SCH (05:37)
[2021-04-19 06:17] VITALS: BP 130/67
[2021-04-19] MEDS: INSULIN LISPRO 300 UNITS/3 ML VIAL. SQ SCH (07:30)
[2021-04-19] MEDS: LORazepam 0.5 MG TABLET PO SCH (08:32)
[2021-04-19] MEDS: LACTOBACILLUS RHAMNOSUS GG 1 CAPSULE. PO SCH (08:32)
[2021-04-19] MEDS: ASCORBIC ACID 500 MG TABLET PO SCH (08:32)
[2021-04-19] MEDS: CARVEDILOL 12.5 MG TABLET PO SCH (08:32)
[2021-04-19] MEDS: CEFDINIR 300 MG CAPSULE PO SCH (08:32)
[2021-04-19] MEDS: QUEtiapine 50 MG TABLET. PO SCH (08:32)
[2021-04-19] MEDS: SERTRALINE 50 MG TABLET. PO SCH (08:32)
[2021-04-19] MEDS: MULTIVITAMIN with MINERAL TABLET. PO SCH (08:32)
[2021-04-19] MEDS: PANTOPRAZOLE 40 MG TABLET. PO SCH (08:32)
[2021-04-19] MEDS: QUEtiapine 25 MG TABLET. PO SCH (08:32)
[2021-04-19 08:33] VITALS: BP 130/67
[2021-04-19] MEDS: LISINOPRIL 20 MG TABLET PO SCH (08:33)
[2021-04-19] MEDS: amLODIPine BESYLATE 10 MG TABLET PO SCH (08:33)
--- NOTE | 2021-04-19 10:00 | NUR ---
Nursing note: Dr. Jolly notified of pt's abnormal lab values. Per Dr. Jolly, pt's potassium is "close to normal" and hemoglobin is "not to the point of transfusing". Dr. Jolly recommends follow up once she returns to her facility. Will continue to monitor.
--- NOTE | 2021-04-19 11:30 | NUR ---
Transition Record was faxed to follow-up provider with the following elements: Reason for admission, procedures, tests, principal diagnosis, pending studies, patient instructions, 09/02 contact information for unit, phone number to obtain pending test results, plan for follow-up care, physician follow-up, advanced directive information, and medication list with dose, duration and instructions. This information was included in the following documents: History and physical, lab results, study results, progress notes, social work planning form, DC instruction form, patient visit summary, and medication reconciliation form. Date & time record faxed: 04/19/21 @ [phone] Record faxed to: Katey Schwarz @ [phone] Record discussed with/ report given to: RADHA Escoto
--- NOTE | 2021-04-19 22:17 | PDOC ---
Exam Note: Hayden Note: Please also refer to the separate dictated note~for this date of service dictated separately.~Patient seen individually. Discussed the patient with Nursing staff reviewed the chart.~Reviewed interim history and current functioning. Reviewed vital signs,~Labs/ Radiology~and current medications noted below. Continue current treatment with the changes noted in the dictated addendum note Assessment: Vital Signs/I&O: Vital Signs Date Time Temp Pulse Resp B/P (MAP) Pulse Ox O2 Delivery O2 Flow Rate FiO2 04/19/21 08:33 63 130/67 04/19/21 06:17 99.3 18 96 04/17/21 15:39 Room Air I & O 04/18/21 04/18/21 04/19/21 15:00 23:00 07:00 Intake Total 720 ml 480 ml Balance 720 ml 480 ml Labs: Laboratory Tests Test 04/19/21 07:37 Glucose (Fingerstick) 121 mg/dL (70-99) H Current Medications: Meds: Laboratory Tests Test 04/19/21 07:37 Glucose (Fingerstick) 121 mg/dL Current Medications Medications (Trade) Dose Ordered Sig/Lilly Route PRN Reason Start Time Stop Time Status Last Admin Dose Admin Acetaminophen (Tylenol) 650 mg PRN Q6HRS PRN PO MILD PAIN / TEMP > 100.3'F 03/28/21 19:30 04/19/21 12:12 DC 04/18/21 14:53 Multi-Ingredient Ointment (Analgesic [place]) 1 billy PRN QID PRN TP MUSCLE PAIN 03/28/21 19:30 04/19/21 12:12 DC Al Hydroxide/Mg Hydroxide (Mylanta Plus Xs) 15 ml PRN AFTMEALHC PRN PO 2ND CHOICE DYSPEPSIA 03/28/21 19:30 04/19/21 12:12 DC Magnesium Hydroxide (Milk Of Magnesia) 2,400 mg PRN QHS PRN PO CONSTIPATION 03/28/21 19:30 04/19/21 12:12 DC Amlodipine Besylate (Norvasc) 10 mg DAILY PO 03/29/21 09:00 04/19/21 12:12 DC 04/19/21 08:33 Bismuth Subsalicylate (Pepto-Bismol) 262 mg PRN Q6HRS PRN PO 1ST CHOICE DYSPEPSIA 03/28/21 20:00 04/19/21 12:12 DC Carvedilol (Coreg) 12.5 mg BIDWMEALS PO 03/29/21 08:00 04/19/21 12:12 DC 04/19/21 08:32 Glimepiride (Amaryl) 3 mg BIDWMEALS PO 03/29/21 08:00 03/31/21 14:07 DC 03/30/21 17:00 Lisinopril (Prinivil) 20 mg DAILY PO 03/29/21 09:00 04/19/21 12:12 DC 04/19/21 08:33 Non-Formulary Medication (Alendronate Sodium ) 70 mg WEEKLY PO 04/04/21 09:00 03/28/21 23:48 DC Ascorbic Acid (Vitamin C) 500 mg DAILY PO 03/29/21 09:00 04/19/21 12:12 DC 04/19/21 08:32 Atorvastatin Calcium (Lipitor) 40 mg QHS PO 03/28/21 21:00 04/19/21 12:12 DC 04/18/21 21:57 Non-Formulary Medication (Glimepiride ) 1 mg BID PO 03/28/21 21:00 UNV Insulin Glargine (Lantus Syringe) 20 unit DAILYWBKFT SQ 03/29/21 08:00 03/31/21 14:07 DC 03/30/21 09:14 Lactobacillus Rhamnosus (Culturelle) 1 cap BID PO 03/28/21 21:00 04/19/21 12:12 DC 04/19/21 08:32 Levothyroxine Sodium (Synthroid) 125 mcg DAILY06 PO 03/29/21 06:00 04/19/21 12:12 DC 04/19/21 05:37 Multivitamins/ Calcium (Thera-M Plus) 1 tab DAILY PO 03/29/21 09:00 04/19/21 12:12 DC 04/19/21 08:32 Pantoprazole Sodium (Protonix) 40 mg DAILY PO 03/29/21 09:00 04/19/21 12:12 DC 04/19/21 08:32 Linagliptin (Tradjenta) 5 mg DAILY PO 03/29/21 09:00 03/31/21 14:07 DC 03/30/21 09:09 Buspirone HCl (Buspar) 10 mg BID PO 03/28/21 21:00 03/29/21 20:13 DC 03/29/21 08:27 Divalproex Sodium (Depakote) 125 mg DAILY PO 03/29/21 09:00 04/01/21 19:42 DC 04/01/21 08:32 Lorazepam (Ativan) 0.5 mg BID PO 03/28/21 21:00 04/19/21 12:12 DC 04/19/21 08:32 Quetiapine Fumarate (SEROquel) 25 mg DAILY PO 03/29/21 09:00 04/19/21 12:12 DC 04/19/21 08:32 Quetiapine Fumarate (SEROquel) 50 mg DAILY PO 03/29/21 09:00 04/19/21 12:12 DC 04/19/21 08:32 Insulin Human Lispro (HumaLOG) 0-7 UNITS TIDWMEALS SQ 03/29/21 08:00 03/28/21 23:36 DC Dextrose (Dextrose 50%-Water Syringe) 12.5 gm PRN Q15MIN PRN IV SEE COMMENTS 03/28/21 23:15 04/19/21 12:12 DC Insulin Human Lispro (HumaLOG) 0-7 UNITS BIDWMEALS SQ 03/29/21 09:00 03/31/21 14:07 DC 03/30/21 17:00 Alendronate Sodium (Fosamax) 70 mg WEEKLYAC PO 04/03/21 07:00 04/19/21 12:12 DC 04/17/21 08:17 Sertraline HCl (Zoloft) 25 mg DAILY PO 03/30/21 09:00 04/04/21 11:28 DC 04/04/21 08:37 Insulin Human Lispro (HumaLOG) 0-7 UNITS TIDAC SQ 03/31/21 16:30 04/19/21 12:12 DC 04/18/21 17:23 Sertraline HCl (Zoloft) 50 mg DAILY PO 04/05/21 09:00 04/11/21 11:03 DC 04/11/21 09:38 Olanzapine (ZyPREXA ZYDIS) 7.5 mg PRN Q2HR PRN PO PSYCHOSIS 04/04/21 11:30 04/04/21 20:02 DC Olanzapine (ZyPREXA ZYDIS) 2.5 mg PRN Q2HR PRN PO PSYCHOSIS 04/04/21 20:00 04/19/21 12:12 DC Insulin Glargine (Lantus Syringe) 10 unit QHS SQ 04/10/21 21:00 04/19/21 12:12 DC 04/18/21 22:09 Sertraline HCl (Zoloft) 75 mg DAILY PO 04/12/21 09:00 04/19/21 12:12 DC 04/19/21 08:32 Cefdinir (Omnicef) 300 mg BID PO 04/12/21 21:00 04/19/21 12:12 DC 04/19/21 08:32 I have reviewed the current psychotropics carefully including drug interactions. Risk benefit ratio favors no change other than as noted in my dictated progress note. Diagnosis: Problems: (1) Major depressive disorder, recurrent episode (2) Impulse control disorder, unspecified (3) Anxiety disorder, unspecified (4) Mild cognitive impairment VISHAL SWAIN MD Apr 19, 2021 22:17
--- NOTE | 2021-04-21 09:00 | PDOC ---
Exam Note: Hayden Note: This note is a late entry for 04/18/2021 covers elements not covered in my initial note. Subjective: This is my first visit with the patient since 04/06/[address] Edwards covered for me during my vacation. Reviewed information with Dr. Edwards, reviewed current and past records, reviewed interim history and circumstances prompting this referral for inpatient psychiatric stabilization. The patient was reviewed at treatment team meeting individually in the morning on 04/18/2021 with Lady Little, Vale Hess (social problems specialist), Roseann, activity therapy and Joan GARCIA, discussed and reviewed the chart. The patient slept 6 hours previous night. She remains somewhat demanding at times but this seems typical for her and reflective of her personality. She has attended 3 groups in the past one week. I met with her in her room. Review of Systems: Ambulation impaired in wheelchair. No CV, , pulmonary, eye system symptoms on review. Mental Status Exam: The patient is reasonably oriented. Speech coherent has some latency. Abstraction fair. Computation impaired. Language function intact. Attention span short. Mood and affect somewhat withdrawn. Laboratory Data: Reviewed. Impression: Major depressive disorder in partial remission. Mild cognitive impairment. Plan: Continue Zoloft along with Ativan 0.5 mg b.i.d., Seroquel 75 mg daily, Zyprexa p.r.n. Adjust further as clinically indicated. Transition back to long-term Katey Schwarz on 04/19/2021. Assessment: Vital Signs/I&O: Vital Signs Date Time Temp Pulse Resp B/P (MAP) Pulse Ox O2 Delivery O2 Flow Rate FiO2 04/19/21 08:33 63 130/67 04/19/21 06:17 99.3 18 96 04/17/21 15:39 Room Air Current Medications: Meds: Current Medications Medications (Trade) Dose Ordered Sig/Lilly Route PRN Reason Start Time Stop Time Status Last Admin Dose Admin Acetaminophen (Tylenol) 650 mg PRN Q6HRS PRN PO MILD PAIN / TEMP > 100.3'F 03/28/21 19:30 04/19/21 12:12 DC 04/18/21 14:53 Multi-Ingredient Ointment (Analgesic [place]) 1 billy PRN QID PRN TP MUSCLE PAIN 03/28/21 19:30 04/19/21 12:12 DC Al Hydroxide/Mg Hydroxide (Mylanta Plus Xs) 15 ml PRN AFTMEALHC PRN PO 2ND CHOICE DYSPEPSIA 03/28/21 19:30 04/19/21 12:12 DC Magnesium Hydroxide (Milk Of Magnesia) 2,400 mg PRN QHS PRN PO CONSTIPATION 03/28/21 19:30 04/19/21 12:12 DC Amlodipine Besylate (Norvasc) 10 mg DAILY PO 03/29/21 09:00 04/19/21 12:12 DC 04/19/21 08:33 Bismuth Subsalicylate (Pepto-Bismol) 262 mg PRN Q6HRS PRN PO 1ST CHOICE DYSPEPSIA 03/28/21 20:00 04/19/21 12:12 DC Carvedilol (Coreg) 12.5 mg BIDWMEALS PO 03/29/21 08:00 04/19/21 12:12 DC 04/19/21 08:32 Glimepiride (Amaryl) 3 mg BIDWMEALS PO 03/29/21 08:00 03/31/21 14:07 DC 03/30/21 17:00 Lisinopril (Prinivil) 20 mg DAILY PO 03/29/21 09:00 04/19/21 12:12 DC 04/19/21 08:33 Non-Formulary Medication (Alendronate Sodium ) 70 mg WEEKLY PO 04/04/21 09:00 03/28/21 23:48 DC Ascorbic Acid (Vitamin C) 500 mg DAILY PO 03/29/21 09:00 04/19/21 12:12 DC 04/19/21 08:32 Atorvastatin Calcium (Lipitor) 40 mg QHS PO 03/28/21 21:00 04/19/21 12:12 DC 04/18/21 21:57 Non-Formulary Medication (Glimepiride ) 1 mg BID PO 03/28/21 21:00 UNV Insulin Glargine (Lantus Syringe) 20 unit DAILYWBKFT SQ 03/29/21 08:00 03/31/21 14:07 DC 03/30/21 09:14 Lactobacillus Rhamnosus (Culturelle) 1 cap BID PO 03/28/21 21:00 04/19/21 12:12 DC 04/19/21 08:32 Levothyroxine Sodium (Synthroid) 125 mcg DAILY06 PO 03/29/21 06:00 04/19/21 12:12 DC 04/19/21 05:37 Multivitamins/ Calcium (Thera-M Plus) 1 tab DAILY PO 03/29/21 09:00 04/19/21 12:12 DC 04/19/21 08:32 Pantoprazole Sodium (Protonix) 40 mg DAILY PO 03/29/21 09:00 04/19/21 12:12 DC 04/19/21 08:32 Linagliptin (Tradjenta) 5 mg DAILY PO 03/29/21 09:00 03/31/21 14:07 DC 03/30/21 09:09 Buspirone HCl (Buspar) 10 mg BID PO 03/28/21 21:00 03/29/21 20:13 DC 03/29/21 08:27 Divalproex Sodium (Depakote) 125 mg DAILY PO 03/29/21 09:00 04/01/21 19:42 DC 04/01/21 08:32 Lorazepam (Ativan) 0.5 mg BID PO 03/28/21 21:00 04/19/21 12:12 DC 04/19/21 08:32 Quetiapine Fumarate (SEROquel) 25 mg DAILY PO 03/29/21 09:00 04/19/21 12:12 DC 04/19/21 08:32 Quetiapine Fumarate (SEROquel) 50 mg DAILY PO 03/29/21 09:00 04/19/21 12:12 DC 04/19/21 08:32 Insulin Human Lispro (HumaLOG) 0-7 UNITS TIDWMEALS SQ 03/29/21 08:00 03/28/21 23:36 DC Dextrose (Dextrose 50%-Water Syringe) 12.5 gm PRN Q15MIN PRN IV SEE COMMENTS 03/28/21 23:15 04/19/21 12:12 DC Insulin Human Lispro (HumaLOG) 0-7 UNITS BIDWMEALS SQ 03/29/21 09:00 03/31/21 14:07 DC 03/30/21 17:00 Alendronate Sodium (Fosamax) 70 mg WEEKLYAC PO 04/03/21 07:00 04/19/21 12:12 DC 04/17/21 08:17 Sertraline HCl (Zoloft) 25 mg DAILY PO 03/30/21 09:00 04/04/21 11:28 DC 04/04/21 08:37 Insulin Human Lispro (HumaLOG) 0-7 UNITS TIDAC SQ 03/31/21 16:30 04/19/21 12:12 DC 04/18/21 17:23 Sertraline HCl (Zoloft) 50 mg DAILY PO 04/05/21 09:00 04/11/21 11:03 DC 04/11/21 09:38 Olanzapine (ZyPREXA ZYDIS) 7.5 mg PRN Q2HR PRN PO PSYCHOSIS 04/04/21 11:30 04/04/21 20:02 DC Olanzapine (ZyPREXA ZYDIS) 2.5 mg PRN Q2HR PRN PO PSYCHOSIS 04/04/21 20:00 04/19/21 12:12 DC Insulin Glargine (Lantus Syringe) 10 unit QHS SQ 04/10/21 21:00 04/19/21 12:12 DC 04/18/21 22:09 Sertraline HCl (Zoloft) 75 mg DAILY PO 04/12/21 09:00 04/19/21 12:12 DC 04/19/21 08:32 Cefdinir (Omnicef) 300 mg BID PO 04/12/21 21:00 04/19/21 12:12 DC 04/19/21 08:32 I have reviewed the current psychotropics carefully including drug interactions. Risk benefit ratio favors no change other than as noted in my dictated progress note. Diagnosis: Problems: (1) Major depressive disorder in partial remission (2) Mild cognitive impairment VISHAL SWAIN MD Apr 21, 2021 09:00
--- NOTE | 2021-04-22 22:14 | DS ---
DATE OF DISCHARGE: 04/19/2021 DISCHARGE SUMMARY/PSYCHIATRIC PROGRESS NOTE This late entry, date of service, 04/19/2021 covers the elements not covered in my initial note. REASON FOR ADMISSION: Please refer to the admission history for details. Briefly, the patient is a 76-year-old female referred to us from [facility] by her primary care physician on account of being verbally aggressive toward staff, physically aggressive during cares, agitated. The patient is not noted to have unspecified psychosis, acute mental status changes, had failed outpatient psychiatric intervention, resulting in this referral for inpatient psychiatric stabilization. SIGNIFICANT FINDINGS AND CLINICAL COURSE: Following admission, the patient was seen daily individually by myself from a psychiatric standpoint, medical followup with Dr. Jolly/Dr. Avina. The patient appeared depressed, anxious, quite irritable with ongoing mood lability. Part of her presentation appeared also to be reflective of a personality and quite demanding. Per nursing report, the patient was treated on cefdinir for her UTI and seemed to stabilize on a combination of Zoloft 75 mg a day, Ativan 0.5 mg b.i.d., Seroquel 75 mg daily, and Zyprexa p.r.n. REVIEW OF SYSTEMS: Prior to discharge, ambulation impaired, in wheelchair. No CV, , pulmonary, eye, ENT system symptoms on review. MENTAL STATUS EXAMINATION: The patient is reasonably oriented. Speech is coherent. Abstraction fair. Computation impaired. Language function intact. Attention span short. Mood and affect, lability improved. CONDITION AT DISCHARGE: Improved. FINAL DIAGNOSES: Major depressive disorder, recurrent, in partial remission; anxiety disorder, unspecified; impulse control disorder, unspecified, personality disorder, unspecified. Rest unchanged from admission. DISCHARGE MEDICATIONS: Please refer to the MRAD. DISCHARGE INSTRUCTIONS: Outpatient psychiatric and medical followup at the [facility]. Time for discharge day management greater than 30 minutes. LILO/AGUSTO DR: Sridhar TID: [id number]
== END 2021-04-19 10:20 | DRG 885 ==
LOC: GEROPSY 17:55
PROVIDERS: ADMIT Psychiatry & Neurology Psychiatry; ATTEND Psychiatry & Neurology Psychiatry
DX: F33.9 Major depressive disorder, recurrent, unspecified (principal); N18.9 Chronic kidney disease, unspecified; I13.0 Hypertensive heart and chronic kidney disease with heart failure and stage 1 through stage 4 chronic kidney disease, or unspecified chronic kidney disease; E11.22 Type 2 diabetes mellitus with diabetic chronic kidney disease; E03.9 Hypothyroidism, unspecified; D64.9 Anemia, unspecified; G47.00 Insomnia, unspecified; K21.9 Gastro-esophageal reflux disease without esophagitis; I50.9 Heart failure, unspecified; J44.9 Chronic obstructive pulmonary disease, unspecified; F63.9 Impulse disorder, unspecified; F41.1 Generalized anxiety disorder; E78.5 Hyperlipidemia, unspecified; F29 Unspecified psychosis not due to a substance or known physiological condition; G31.84 Mild cognitive impairment of uncertain or unknown etiology; M81.0 Age-related osteoporosis without current pathological fracture; L97.509 Non-pressure chronic ulcer of other part of unspecified foot with unspecified severity; Z20.822 Contact with and (suspected) exposure to COVID-19; E11.621 Type 2 diabetes mellitus with foot ulcer; E55.9 Vitamin D deficiency, unspecified; Z79.4 Long term (current) use of insulin; Z79.899 Other long term (current) drug therapy; Z85.3 Personal history of malignant neoplasm of breast; Z90.11 Acquired absence of right breast and nipple
CPT/HCPCS: 36415; 80053; 80061; 80164; 81001; 82306; 82607; 82947; 83036; 83540; 83550; 83735; 84436; 84443; 84480; 85025; 85379; 86592; 87077; 87086; 87186; 93005; 93971; J1815; U0003